=== PATIENT | female | born 1955 | race African-American/Black ===

== ENCOUNTER 2018-01-03 09:15 | Inpatient (IN) | payer SELFPAY ==
[2018-01-03] MEDS ORDERED: NORMAL SALINE 1000 ML 1,000 ML IV ONE (10:33)
[2018-01-03] MEDS ORDERED: ONDANSETRON HCL INJ/PF 4 MG/2 ML SDV IV ONE (10:33)
--- NOTE | 2018-01-03 10:34 | ER Document Report ---
ED Medical Screen (RME) - General Chief Complaint: Lower Abdominal Pain Stated Complaint: ABDOMEN PAIN Time Seen by Provider: 01/03/18 10:28 TRAVEL OUTSIDE OF THE [place] IN LAST 30 DAYS: No - HPI Notes: 01/03/18 10:34 Left lower quadrant pain with fever nausea vomiting/diarrhea ongoing for the last 2 days. - Related Data Allergies/Adverse Reactions: No Known Allergies Allergy (Verified 01/03/18 09:28) Past Medical History - Social History Chew tobacco use (# tins/day): No Frequency of alcohol use: None Drug Abuse: None Renal/ Medical History: Denies: Hx Peritoneal Dialysis Past Surgical History: Reports: Hx Section Review of Systems - Review of Systems Constitutional: See HPI Physical Exam - Respiratory Respiratory status: No respiratory distress Chest status: Nontender Breath sounds: Normal Chest palpation: Normal
[2018-01-03 11:09] LABS: HEMATOCRIT 37.7 % (36.0-47.0); HEMOGLOBIN 12.4 g/dL (12.0-15.5); MEAN CORPUSCULAR HEMOGLOBIN 27.5 pg (27.0-33.4); MEAN CORPUSCULAR HGB CONC 32.9 g/dL (32.0-36.0); MEAN CORPUSCULAR VOLUME 84 fl (80-97); PLATELET COUNT 195 10^3/uL (150-450); RED CELL DISTRIBUTION WIDTH 14.7 % (11.5-14.0); WHITE BLOOD COUNT 12.5 10^3/uL (4.0-10.5)
--- NOTE | 2018-01-03 11:13 | ER Document Report ---
ED GI/ - General TRAVEL OUTSIDE OF THE [place] IN LAST 30 DAYS: No <DIANA QUARLES - Last Filed: 01/03/18 11:13> - General Mode of Arrival: Medic Information source: Patient, Relative, Emergency Med Personnel <RACHID LUEVANO - Last Filed: 01/03/18 14:32> - General Chief Complaint: Lower Abdominal Pain Stated Complaint: ABDOMEN PAIN Time Seen by Provider: 01/03/18 10:28 Notes: This 62-year-old female patient comes emergency room by EMS for left-sided abdominal pain. She reports waking up at 3 AM with severe left-sided abdominal pain followed by nausea with vomiting of clear liquid. When EMS arrived they did find that her blood pressure was elevated and she had a slight fever. Patient reports he moved here from the [facility] sometime in the past 1-2 months, has not taken blood pressure medication at least since arriving here. The patient has never had pain like this in her abdomen before. (RACHID LUEVANO) - Related Data Allergies/Adverse Reactions: No Known Allergies Allergy (Verified 01/03/18 09:28) Past Medical History - Social History Smoking Status: Never Smoker Chew tobacco use (# tins/day): No Frequency of alcohol use: None Drug Abuse: None Patient has suicidal ideation: No Patient has homicidal ideation: No Renal/ Medical History: Denies: Hx Peritoneal Dialysis Past Surgical History: Reports: Hx Section <DIANA QUARLES - Last Filed: 01/03/18 11:13> - General Information source: Patient - Social History Cigarette use (# per day): No Smoking Education Provided: No Occupation: Unemployed Lives with: Family Family History: Reviewed & Not Pertinent - Past Medical History Cardiac Medical History: Reports: Hx Hypercholesterolemia, Hx Hypertension Pulmonary Medical History: Reports: None EENT Medical History: Reports: None Neurological Medical History: Reports: None Endocrine Medical History: Reports: None Renal/ Medical History: Reports: None GI Medical History: Reports: None Skin Medical History: Reports None Psychiatric Medical History: Reports: None Past Surgical History: Reports: Hx Section <RACHID LUEVANO - Last Filed: 01/03/18 14:32> Review of Systems - Review of Systems Constitutional: No symptoms reported EENT: No symptoms reported Cardiovascular: No symptoms reported Respiratory: No symptoms reported Gastrointestinal: See HPI Genitourinary: No symptoms reported Female Genitourinary: No symptoms reported, Post menopausal Musculoskeletal: No symptoms reported Skin: No symptoms reported Hematologic/Lymphatic: No symptoms reported Neurological/Psychological: No symptoms reported <RACHID LUEVANO - Last Filed: 01/03/18 14:32> Physical Exam - Vital signs Interpretation: Hypertensive, Febrile - General General appearance: Appears well, Alert In distress: None - HEENT Head: Normocephalic, Atraumatic Eyes: Normal Pupils: PERRL - Respiratory Respiratory status: No respiratory distress Breath sounds: Normal - Cardiovascular Rhythm: Regular Heart sounds: Normal auscultation Murmur: No - Abdominal Inspection: Morbidly Obese Bowel sounds: Hypoactive Tenderness: Tender - Very tender in the left mid abdomen to palpate. No guarding or rebound. - Back Back: Normal - Extremities General upper extremity: Normal inspection General lower extremity: Normal inspection. No: Edema - Neurological Neuro grossly intact: Yes - Psychological Associated symptoms: Normal affect - Skin Skin Temperature: Warm Skin Moisture: Moist Skin Color: Normal <RACHID LUEVANO - Last Filed: 01/03/18 14:32> Course - Laboratory Result Diagrams: 01/03/18 10:45 01/03/18 10:45 <DIANA QUARLES - Last Filed: 01/03/18 11:13> - Laboratory Result Diagrams: 01/03/18 10:45 01/03/18 10:45 - Consults Dr. Richter Time consulted: 14:15 Consulted provider: will come to ER <RACHID LUEVANO - Last Filed: 01/03/18 14:32> - Laboratory Laboratory results interpreted by me: 01/03/18 01/03/18 01/03/18 10:45 10:45 11:00 WBC 12.5 H RDW 14.7 H Seg Neuts % (Manual) 91 H Lymphocytes % (Manual) 4 L Monocytes % (Manual) 2 L Abs Neuts (Manual) 11.8 H Glucose 130 H Urine Protein 30 H Urine Ketones TRACE H Urine Blood MODERATE H Urine Urobilinogen 2.0 H Ur Leukocyte Esterase LARGE H Discharge <DIANA QUARLES - Last Filed: 01/03/18 11:13> - Discharge Admitting Provider: Hospitalist Unit Admitted: Medical Floor <RACHID LUEVANO - Last Filed: 01/03/18 14:32> - Discharge Clinical Impression: Complicated UTI (urinary tract infection) Abdominal pain Qualifiers: Abdominal location: left upper quadrant Qualified Code(s): R10.12 - Left upper quadrant pain Leukocytosis Qualifiers: Leukocytosis type: bandemia Qualified Code(s): D72.825 - Bandemia Condition: Stable Disposition: ADMITTED INPATIENT Scribe Attestation: 01/03/18 11:17 I personally performed the services described in the documentation, reviewed and edited the documentation which was dictated to the scribe in my presence, and it accurately records my words and actions. (RACHID LUEVANO)
[2018-01-03 11:25] LABS: ALANINE AMINOTRANSFERASE 19 U/L (9-52); ALBUMIN 3.9 g/dL (3.5-5.0); ALKALINE PHOSPHATASE 84 U/L (38-126); ANION GAP 12 (5-19); ASPARTATE AMINO TRANSFERASE 21 U/L (14-36); BILIRUBIN,DIRECT 0.2 mg/dL (0.0-0.4); BILIRUBIN,TOTAL 0.6 mg/dL (0.2-1.3); BLOOD UREA NITROGEN 18 mg/dL (7-20); CALCIUM 9.4 mg/dL (8.4-10.2); CARBON DIOXIDE 26 mmol/L (22-30); CHLORIDE 107 mmol/L (98-107); GLUCOSE 130 mg/dL (75-110); LIPASE 64.6 U/L (23-300); POTASSIUM 3.8 mmol/L (3.6-5.0); SODIUM 144.7 mmol/L (137-145); TOTAL PROTEIN 7.7 g/dL (6.3-8.2)
[2018-01-03 11:42] LABS: ABSOLUTE LYMPHOCYTES# (MANUAL) 0.5 10^3/uL (0.5-4.7); ABSOLUTE MONOCYTES # (MANUAL) 0.3 10^3/uL (0.1-1.4); ABSOLUTE NEUTROPHILS# (MANUAL) 11.8 10^3/uL (1.7-8.2); BAND NEUTROPHILS % (MANUAL) 3 % (3-5); BASOPHILS % (MANUAL) 0 % (0-2); EOSINOPHILS % (MANUAL) 0 % (0-6); LYMPHOCYTES % (MANUAL) 4 % (13-45); MONOCYTES % (MANUAL) 2 % (3-13); SEGMENTED NEUTROPHILS % (MAN) 91 % (42-78); TOTAL CELLS COUNTED 100; TOXIC VACUOLATION PRESENT
[2018-01-03 11:43] LABS: ANISOCYTOSIS SLIGHT; PLATELET COMMENT ADEQUATE
[2018-01-03 11:48] LABS: APPEARANCE,URINE TURBID; BILIRUBIN,URINE NEGATIVE (NEGATIVE); COLOR,URINE YELLOW; GLUCOSE, URINE NEGATIVE (NEGATIVE); KETONES,URINE TRACE mg/dL (NEGATIVE); LEUKOCYTE ESTERASE,URINE LARGE (NEGATIVE); NITRITE,URINE NEGATIVE (NEGATIVE); PROTEIN,URINE 30 mg/dL (NEGATIVE); URINE SPECIFIC GRAVITY 1.019
--- NOTE | 2018-01-03 12:32 | RADIOLOGY REPORT (SQ) ---
EXAM DESCRIPTION: CT ABD/PELVIS WITH IV ONLY COMPLETED DATE/TIME: 01/03/2018 12:11 pm REASON FOR STUDY: LLQ pain COMPARISON: None. TECHNIQUE: CT scan of the abdomen and pelvis performed using helical scanning technique with dynamic intravenous contrast injection. No oral contrast. Images reviewed with lung, soft tissue, and bone windows. Reconstructed coronal and sagittal MPR images reviewed. Delayed images for evaluation of the urinary system also acquired. All images stored on PACS. All CT scanners at this facility use dose modulation, iterative reconstruction, and/or weight based d osing when appropriate to reduce radiation dose to as low as reasonably achievable (ALARA). [facility]: Dose Right [facility]: CareDose [facility]: Dose Right [facility]: Teradose 4D [facility]: [employer] CONTRAST TYPE AND DOSE: contrast/concentration: Isovue 350.00 mg/ml; Total Contrast Delivered: 99.0 ml; Total Saline Delivered: 67.0 ml RENAL FUNCTION: GFR > 60. RADIATION DOSE: CT Rad equipment meets quality standard of care and radiation dose reduction techniq ues were employed. CTDIvol: 21.0 - 21.1 mGy. DLP: 2329 mGy-cm.. LIMITATIONS: None. FINDINGS: LOWER CHEST: No significant findings. No nodules or infiltrates. LIVER: Normal size. No masses. No dilated ducts. SPLEEN: Normal size. No focal lesions. PANCREAS: No masses. No significant calcifications. No adjacent inflammation or peripancreatic fluid collections. Pancreatic duct not dilated. GALLBLADDER: No identified stones by CT criteria. No inflammatory changes to suggest cholecystitis. ADRENAL GLANDS: No significant masses or asymmetry. RIGHT KIDNEY AND URETER: 1 cm cyst lower pole. No solid masses. No significant calcifications. N o hydronephrosis or hydroureter. LEFT KIDNEY AND URETER: No solid masses. 3 cm cyst. 2 mm renal calculus. No hydronephrosis or hy droureter. AORTA AND VESSELS: No aneurysm. RETROPERITONEUM: No retroperitoneal adenopathy, hemorrhage or masses. BOWEL AND PERITONEAL CAVITY: No masses or inflammatory changes. No free fluid or peritoneal masses. APPENDIX: Normal. PELVIS: No mass. No free fluid. Normal bladder. ABDOMINAL WALL: Umbilical hernia containing fat. BONES: No acute findings. OTHER: No other significant finding. IMPRESSION: No acute findings. Small nonobstructing left renal calculus. TECHNICAL DOCUMENTATION: JOB ID: [id number] Quality ID # [id number]: Final reports with documentation of one or more dose reduction techniques (e.g., Au tomated exposure control, adjustment of the mA and/or kV according to patient size, use of iterative reconstruction technique) 2010 [employer]- All Rights Reserved Reading location - IP/workstation name: [email or web address]
[2018-01-03] MEDS ORDERED: CEFTRIAXONE 2 GM/D5W RTU 2 GM/50 ML RTUPB IV ONE (14:13)
[2018-01-03] MEDS ORDERED: ACETAMINOPHEN 325 MG TABLET PO ONE (14:24)
--- NOTE | 2018-01-03 15:51 | PDOC H&P ---
History of Present Illness Admission Date/PCP: 01/03/18 15:10 History of Present Illness: TAMMIE CUENCA is a 62 year old black female patient who recently relocated from [place] to [facility] presented with chief complaint of left flank pain, fever, nausea and vomiting. Patient reports that she has been in apparently good state of health up until 3 AM this morning when she woke up with left flank pain which is colicky and nonradiating about 10 out of 10 on pain scale. She has associated nausea, vomiting, and fever. Her blood work shows mild leukocytosis and her urinalysis is compatible with UTI. Patient denies any dizziness, headache or blurry vision. No diarrhea or change in her bowel habits. Past Medical History Cardiac Medical History: Reports: Hyperlipidema, Hypertension Pulmonary Medical History: Reports: None EENT Medical History: Reports: None Neurological Medical History: Reports: None Endocrine Medical History: Reports: None Renal/ Medical History: Reports: None GI Medical History: Reports: None Skin Medical History: Reports: None Psychiatric Medical History: Reports: None Past Surgical History Past Surgical History: Reports: Section Social History Lives with: Family Smoking Status: Never Smoker Frequency of Alcohol Use: None Hx Recreational Drug Use: No Hx Prescription Drug Abuse: No - Advance Directive Resuscitation Status: Full Code Family History Family History: Reviewed & Not Pertinent, Hypertension Parental Family History Reviewed: Yes Children Family History Reviewed: Yes Sibling(s) Family History Reviewed.: Yes Medication/Allergy Allergies/Adverse Reactions: No Known Allergies Allergy (Verified 01/03/18 09:28) Review of Systems Constitutional: PRESENT: as per HPI Eyes: PRESENT: as per HPI Respiratory: ABSENT: cough, hemoptysis Gastrointestinal: ABSENT: abdominal pain, constipation, diarrhea, hematemesis, hematochezia, nausea, vomiting Genitourinary: PRESENT: other - Left CVA tenderness Neurological: PRESENT: as per HPI Physical Exam General appearance: PRESENT: no acute distress, well-developed Head exam: PRESENT: atraumatic, normocephalic Eye exam: PRESENT: conjunctiva pink, EOMI. ABSENT: scleral icterus Mouth exam: PRESENT: moist Neck exam: ABSENT: carotid bruit, JVD, lymphadenopathy, thyromegaly Respiratory exam: PRESENT: clear to auscultation sayda. ABSENT: rales, rhonchi, wheezes Cardiovascular exam: PRESENT: RRR. ABSENT: diastolic murmur, rubs, systolic murmur GI/Abdominal exam: PRESENT: normal bowel sounds, soft. ABSENT: distended, guarding, mass, organolmegaly, rebound, tenderness Rectal exam: PRESENT: deferred Extremities exam: PRESENT: full ROM. ABSENT: calf tenderness, clubbing, pedal edema Neurological exam: PRESENT: alert, awake, oriented to person, oriented to place , oriented to time, oriented to situation. ABSENT: motor sensory deficit Psychiatric exam: PRESENT: appropriate affect, normal mood. ABSENT: homicidal ideation, suicidal ideation Skin exam: PRESENT: dry, intact, warm. ABSENT: cyanosis, rash Results Impressions: Abdomen/Pelvis CT 01/03/18 10:33 IMPRESSION: No acute findings. Small nonobstructing left renal calculus. Assessment & Plan - Diagnosis (1) Complicated UTI (urinary tract infection) Is this a current diagnosis for this admission?: Yes Plan: Her CT scan of the abdomen revealed nonobstructing left renal calculi. Patient has been started on ceftriaxone. (2) Nausea and vomiting Is this a current diagnosis for this admission?: Yes Plan: Patient has been started on as needed Zofran. (3) Hypertension Is this a current diagnosis for this admission?: Yes Plan: Continue home medication (4) Hyperlipidemia Is this a current diagnosis for this admission?: Yes (5) Morbid obesity Is this a current diagnosis for this admission?: Yes Plan: Lifestyle modification advised. - Inpatient Certification Medical Necessity: Need for IV Antibiotics
[2018-01-03] MEDS: OXYCODONE-ACETAMINOPHEN 5-325 MG TABLET PO PRN ×2 (16:39→22:19)
[2018-01-03] MEDS: NORMAL SALINE 1000 ML 1,000 ML IV PRN ×2 (16:40→22:19)
[2018-01-04] MEDS: OXYCODONE-ACETAMINOPHEN 5-325 MG TABLET PO PRN ×2 (02:33→07:32)
[2018-01-04] MEDS: ONDANSETRON HCL INJ/PF 4 MG/2 ML SDV IV PRN ×3 (02:33→17:31)
[2018-01-04 05:23] LABS: HEMATOCRIT 31.2 % (36.0-47.0); HEMOGLOBIN 10.5 g/dL (12.0-15.5); MEAN CORPUSCULAR HGB CONC 33.7 g/dL (32.0-36.0); MEAN CORPUSCULAR VOLUME 83 fl (80-97); PLATELET COUNT 138 10^3/uL (150-450); RED BLOOD COUNT 3.76 10^6/uL (3.72-5.28); RED CELL DISTRIBUTION WIDTH 14.6 % (11.5-14.0); WHITE BLOOD COUNT 9.2 10^3/uL (4.0-10.5)
[2018-01-04 05:39] LABS: ANION GAP 10 (5-19); BLOOD UREA NITROGEN 14 mg/dL (7-20); CALCIUM 8.5 mg/dL (8.4-10.2); CARBON DIOXIDE 24 mmol/L (22-30); CHLORIDE 107 mmol/L (98-107); GLUCOSE 120 mg/dL (75-110); POTASSIUM 3.6 mmol/L (3.6-5.0); SODIUM 140.9 mmol/L (137-145)
[2018-01-04 07:14] LABS: ABSOLUTE LYMPHOCYTES# (MANUAL) 0.4 10^3/uL (0.5-4.7); ABSOLUTE MONOCYTES # (MANUAL) 0.1 10^3/uL (0.1-1.4); ABSOLUTE NEUTROPHILS# (MANUAL) 8.7 10^3/uL (1.7-8.2); BASOPHILS % (MANUAL) 0 % (0-2); EOSINOPHILS % (MANUAL) 0 % (0-6); LYMPHOCYTES % (MANUAL) 4 % (13-45); MONOCYTES % (MANUAL) 1 % (3-13); SEGMENTED NEUTROPHILS % (MAN) 95 % (42-78); TOTAL CELLS COUNTED 100
[2018-01-04 07:15] LABS: HYPOCHROMASIA SLIGHT; PLATELET COMMENT ADEQUATE; TOXIC GRANULATION SLIGHT
[2018-01-04] MEDS: LANSOPRAZOLE 30 MG TAB.RAP.DR PO SCH (07:32)
[2018-01-04] MEDS ORDERED: CEFTRIAXONE 2 GM/D5W RTU 2 GM/50 ML RTUPB IV SCH (10:00)
[2018-01-04] MEDS ORDERED: MORPHINE SULFATE 10 MG/ML INJ IV PRN (11:17)
[2018-01-04] MEDS: ENOXAPARIN SODIUM INJ 40 MG/0.4 ML DISP.SYRIN SUBCUT SCH (11:29)
[2018-01-04] MEDS: ACETAMINOPHEN 325 MG TABLET PO PRN (11:32)
[2018-01-04] MEDS: NORMAL SALINE 1000 ML 1,000 ML IV PRN (11:32)
[2018-01-04] MEDS: CEFTRIAXONE SODIUM 2,000 MG in NORMAL SALINE 100 ML IV SCH (11:33)
[2018-01-04] MEDS: HYDRALAZINE HCL INJ/PF 20 MG/1 ML SDV IV PRN (20:38)
--- NOTE | 2018-01-04 21:14 | PDOC PROGRESS REPORT ---
Subjective Progress Note for:: 01/04/18 Subjective:: 62-year-old black female presenting with left-sided flank pain, fever nausea and vomiting. Found to have a nonobstructing nephrolithiasis, and started on empiric ceftriaxone therapy. Her leukocytosis has been improving. On today's exam her left flank pain has improved. She complains of a severe headache, and complains of ongoing weakness and mild nausea. States that she slept poorly last night. We will continue to monitor her here in the hospital with a possible discharge home tomorrow. Reason For Visit: COMPLICATED UTI Physical Exam Vital Signs: Temp Pulse Resp BP Pulse Ox 98.3 F 59 L 16 138/74 H 96 01/04/18 07:59 01/04/18 07:59 01/04/18 07:59 01/04/18 07:59 01/04/18 07:59 Intake & Output 01/03/18 01/04/18 01/05/18 06:59 06:59 06:59 Intake Total 1706 100 Balance 1706 100 Weight 115.2 kg General appearance: PRESENT: no acute distress, cooperative, obese. ABSENT: mild distress Head exam: PRESENT: atraumatic, normocephalic Eye exam: PRESENT: EOMI. ABSENT: conjunctival injection Ear exam: PRESENT: normal external ear exam. ABSENT: bleeding Mouth exam: PRESENT: moist. ABSENT: dry mucosa Neck exam: PRESENT: full ROM. ABSENT: carotid bruit, JVD Respiratory exam: ABSENT: accessory muscle use, rales, rhonchi, wheezes Cardiovascular exam: PRESENT: RRR, +S1 Pulses: ABSENT: normal carotid pulses, normal dorsalis pedis pul Vascular exam: PRESENT: normal capillary refill. ABSENT: pallor GI/Abdominal exam: ABSENT: ascites, mass, organolmegaly Extremities exam: ABSENT: calf tenderness, joint swelling Musculoskeletal exam: PRESENT: full ROM, normal inspection Neurological exam: PRESENT: alert, oriented to person, oriented to place, oriented to time Psychiatric exam: ABSENT: agitated, anxious Focused psych exam: ABSENT: catatonic, paranoid Skin exam: ABSENT: dry, erythema, mottled Results Laboratory Results: 01/04/18 04:50 01/04/18 04:50 01/04/18 01/04/18 04:50 04:50 WBC 9.2 RBC 3.76 Hgb 10.5 L Hct 31.2 L MCV 83 MCH 28.0 MCHC 33.7 RDW 14.6 H Plt Count 138 L Seg Neutrophils % Not Reportable Lymphocytes % Not Reportable Monocytes % Not Reportable Eosinophils % Not Reportable Basophils % Not Reportable Absolute Neutrophils Not Reportable Absolute Lymphocytes Not Reportable Absolute Monocytes Not Reportable Absolute Eosinophils Not Reportable Absolute Basophils Not Reportable Sodium 140.9 Potassium 3.6 Chloride 107 Carbon Dioxide 24 Anion Gap 10 BUN 14 Creatinine 0.76 Est GFR ( Amer) > 60 Est GFR (Non-Af Amer) > 60 Glucose 120 H Calcium 8.5 Impressions: Abdomen/Pelvis CT 01/03/18 10:33 IMPRESSION: No acute findings. Small nonobstructing left renal calculus. Assessment & Plan - Diagnosis (1) Complicated UTI (urinary tract infection) Is this a current diagnosis for this admission?: Yes Plan: Will need follow-up with outpatient urology after this hospital stay. Continue ceftriaxone coverage at present. Will anticipate a prolonged coverage with Cefdinir at discharge. Clinically was too fatigued and weak to discharge home today, but this is a possibility for discharge tomorrow. (2) Nausea and vomiting Is this a current diagnosis for this admission?: Yes Plan: continue prn anti0-emetics (3) Morbid obesity Is this a current diagnosis for this admission?: Yes Plan: Encourage caloric reduction. (4) Hypertension Is this a current diagnosis for this admission?: Yes Plan: Blood pressure in acceptable range. IV hydralazine written with use parameters. (5) Leukocytosis Qualifiers: Leukocytosis type: bandemia Qualified Code(s): D72.825 - Bandemia Is this a current diagnosis for this admission?: Yes Plan: Improving on empiric antibiotics. Continue antibiotic coverage for problem #1. - Time Time Spent with patient: 15-24 minutes - Inpatient Certification Based on my medical assessment, after consideration of the patient's comorbidities, presenting symptoms, or acuity I expect that the services needed warrant INPATIENT care.: Yes I certify that my determination is in accordance with my understanding of Medicare's requirements for reasonable and necessary INPATIENT services [42 CFR 412.3e].: Yes Medical Necessity: Need Close Monitoring Due to Risk of Patient Decompensation
[2018-01-05] MEDS: HYDRALAZINE HCL INJ/PF 20 MG/1 ML SDV IV PRN ×2 (00:54→08:58)
[2018-01-05] MEDS: ACETAMINOPHEN 325 MG TABLET PO PRN ×2 (01:40→08:58)
[2018-01-05 05:19] LABS: HEMATOCRIT 31.7 % (36.0-47.0); HEMOGLOBIN 10.4 g/dL (12.0-15.5); MEAN CORPUSCULAR HEMOGLOBIN 27.7 pg (27.0-33.4); MEAN CORPUSCULAR HGB CONC 32.8 g/dL (32.0-36.0); MEAN CORPUSCULAR VOLUME 84 fl (80-97); PLATELET COUNT 120 10^3/uL (150-450); RED BLOOD COUNT 3.76 10^6/uL (3.72-5.28); RED CELL DISTRIBUTION WIDTH 14.5 % (11.5-14.0); WHITE BLOOD COUNT 4.4 10^3/uL (4.0-10.5)
[2018-01-05 05:39] LABS: ALBUMIN 2.8 g/dL (3.5-5.0); ANION GAP 8 (5-19); BLOOD UREA NITROGEN 8 mg/dL (7-20); CALCIUM 8.5 mg/dL (8.4-10.2); CARBON DIOXIDE 24 mmol/L (22-30); CHLORIDE 110 mmol/L (98-107); GLUCOSE 99 mg/dL (75-110); PHOSPHORUS 2.8 mg/dL (2.5-4.5); POTASSIUM 3.4 mmol/L (3.6-5.0); SODIUM 141.7 mmol/L (137-145)
[2018-01-05] MEDS: LANSOPRAZOLE 30 MG TAB.RAP.DR PO SCH (06:54)
[2018-01-05] MEDS ORDERED: AMLODIPINE BESYLATE 5 MG TABLET PO SCH (10:00)
[2018-01-05] MEDS: CEFTRIAXONE SODIUM 2,000 MG in NORMAL SALINE 100 ML IV SCH (10:33)
[2018-01-05] MEDS: ENOXAPARIN SODIUM INJ 40 MG/0.4 ML DISP.SYRIN SUBCUT SCH (10:34)
--- NOTE | 2018-01-05 14:28 | Physician Advisory Note ---
Physician Advisor ProgressNote .: Pursuant to the plan for [facility], I have reviewed the medical record for this patient. Physician Advisor Statement: Pt came in w/Lt flank pain/F/N/V/Lt CVAT, found to have leukocytosis & nephrolithiasis without obstruction. Do you believe she may have "Acute pyelonephritis" this adm? If so, please document this in all notes. Thanks! CK
[2018-01-05] MEDS: HYDRALAZINE HCL 50 MG TABLET PO SCH ×2 (14:37→22:34)
[2018-01-05] MEDS: ISOSORBIDE MONONITRATE 60 MG TAB.ER.24H PO SCH (14:37)
[2018-01-05] MEDS: LOSARTAN POTASSIUM 50 MG TABLET PO SCH (18:39)
--- NOTE | 2018-01-05 21:01 | PDOC PROGRESS REPORT ---
Subjective Progress Note for:: 01/05/18 Subjective:: 62-year-old black female presenting with left-sided flank pain, fever nausea and vomiting. Found to have a nonobstructing nephrolithiasis, and started on empiric ceftriaxone therapy. Her leukocytosis has been resolving. Close to discharging patient home today on oral antibiotics, but her HTN was uncontrolled. She was started on Hydralazine, Imdur and Losartan. Continue titrating BP meds, anticipate d/c soon. Reason For Visit: COMPLICATED UTI Physical Exam Vital Signs: Temp Pulse Resp BP Pulse Ox 98.1 F 66 12 175/68 H 99 01/05/18 13:35 01/05/18 13:35 01/05/18 13:35 01/05/18 16:00 01/05/18 13:35 Intake & Output 01/04/18 01/05/18 01/06/18 06:59 06:59 06:59 Intake Total 1706 1544 580 Balance 1706 1544 580 Weight 115.2 kg 119.4 kg General appearance: PRESENT: no acute distress. ABSENT: mild distress Head exam: PRESENT: atraumatic, normocephalic Eye exam: PRESENT: EOMI, PERRLA. ABSENT: nystagmus Ear exam: PRESENT: normal external ear exam. ABSENT: bleeding Mouth exam: PRESENT: moist. ABSENT: dry mucosa Neck exam: PRESENT: full ROM. ABSENT: carotid bruit, meningismus Respiratory exam: ABSENT: rales, rhonchi, wheezes Cardiovascular exam: PRESENT: RRR, +S1, +S2 Pulses: PRESENT: normal radial pulses, normal dorsalis pedis pul GI/Abdominal exam: PRESENT: soft. ABSENT: ascites, mass, rigid Extremities exam: ABSENT: calf tenderness, joint swelling Musculoskeletal exam: PRESENT: full ROM. ABSENT: ambulatory Neurological exam: PRESENT: alert, oriented to person, oriented to place, oriented to time, oriented to situation, CN II-XII grossly intact Psychiatric exam: ABSENT: agitated, anxious Focused psych exam: ABSENT: delusional, paranoid Skin exam: ABSENT: abrasion, mottled Results Laboratory Results: 01/05/18 04:43 01/05/18 04:43 01/05/18 01/05/18 04:43 04:43 WBC 4.4 RBC 3.76 Hgb 10.4 L Hct 31.7 L MCV 84 MCH 27.7 MCHC 32.8 RDW 14.5 H Plt Count 120 L Sodium 141.7 Potassium 3.4 L Chloride 110 H Carbon Dioxide 24 Anion Gap 8 BUN 8 Creatinine 0.69 Est GFR ( Amer) > 60 Est GFR (Non-Af Amer) > 60 Glucose 99 Calcium 8.5 Phosphorus 2.8 Albumin 2.8 L Impressions: Abdomen/Pelvis CT 01/03/18 10:33 IMPRESSION: No acute findings. Small nonobstructing left renal calculus. Assessment & Plan - Diagnosis (1) Complicated UTI (urinary tract infection) Is this a current diagnosis for this admission?: Yes Plan: Given symptoms, it is likely that she had acute pylonephritis on admission. Will need follow-up with outpatient urology after this hospital stay. Continue ceftriaxone coverage at present. Will anticipate a prolonged coverage with Cefdinir at discharge. d/c med reconciliation of antibiotic has been performed. (2) Nausea and vomiting Is this a current diagnosis for this admission?: Yes Plan: continue prn anti-emetics (3) Morbid obesity Is this a current diagnosis for this admission?: Yes Plan: encouraged caloric restriction (4) Hypertension Is this a current diagnosis for this admission?: Yes Plan: starting Losartan, Hydralazine and Imdur. will monitor and titrate medications for BP control. (5) Leukocytosis Qualifiers: Leukocytosis type: bandemia Qualified Code(s): D72.825 - Bandemia Is this a current diagnosis for this admission?: Yes Plan: resolved. - Time Time Spent with patient: 15-24 minutes - Inpatient Certification Based on my medical assessment, after consideration of the patient's comorbidities, presenting symptoms, or acuity I expect that the services needed warrant INPATIENT care.: Yes I certify that my determination is in accordance with my understanding of Medicare's requirements for reasonable and necessary INPATIENT services [42 CFR 412.3e].: Yes Medical Necessity: Need Close Monitoring Due to Risk of Patient Decompensation
[2018-01-06 05:10] LABS: HEMATOCRIT 30.1 % (36.0-47.0); MEAN CORPUSCULAR HEMOGLOBIN 27.8 pg (27.0-33.4); MEAN CORPUSCULAR HGB CONC 33.4 g/dL (32.0-36.0); MEAN CORPUSCULAR VOLUME 83 fl (80-97); PLATELET COUNT 148 10^3/uL (150-450); RED BLOOD COUNT 3.62 10^6/uL (3.72-5.28); RED CELL DISTRIBUTION WIDTH 14.4 % (11.5-14.0); WHITE BLOOD COUNT 4.3 10^3/uL (4.0-10.5)
[2018-01-06] MEDS: LANSOPRAZOLE 30 MG TAB.RAP.DR PO SCH (05:35)
[2018-01-06] MEDS: HYDRALAZINE HCL 50 MG TABLET PO SCH ×3 (05:35→22:54)
[2018-01-06 05:38] LABS: ALBUMIN 2.8 g/dL (3.5-5.0); ANION GAP 10 (5-19); BLOOD UREA NITROGEN 7 mg/dL (7-20); CALCIUM 8.5 mg/dL (8.4-10.2); CARBON DIOXIDE 24 mmol/L (22-30); CHLORIDE 108 mmol/L (98-107); GLUCOSE 96 mg/dL (75-110); PHOSPHORUS 3.3 mg/dL (2.5-4.5); POTASSIUM 3.6 mmol/L (3.6-5.0); SODIUM 141.7 mmol/L (137-145)
[2018-01-06] MEDS: LOSARTAN POTASSIUM 50 MG TABLET PO SCH (10:34)
[2018-01-06] MEDS: ENOXAPARIN SODIUM INJ 40 MG/0.4 ML DISP.SYRIN SUBCUT SCH (10:34)
[2018-01-06] MEDS: ISOSORBIDE MONONITRATE 60 MG TAB.ER.24H PO SCH (10:34)
[2018-01-06] MEDS: CEFTRIAXONE SODIUM 2,000 MG in NORMAL SALINE 100 ML IV SCH (10:45)
--- NOTE | 2018-01-06 17:35 | PDOC PROGRESS REPORT ---
Subjective Progress Note for:: 01/06/18 - seen on rounds this morning Subjective:: states she feels great and wants to go home today. discussed about her HTN and new medications that were started last night. Reason For Visit: COMPLICATED UTI Physical Exam Vital Signs: Temp Pulse Resp BP Pulse Ox 98.4 F 72 18 150/70 H 97 01/06/18 15:42 01/06/18 15:42 01/06/18 15:42 01/06/18 15:42 01/06/18 15:42 Intake & Output 01/05/18 01/06/18 01/07/18 06:59 06:59 06:59 Intake Total 1544 580 100 Balance 1544 580 100 Weight 263 lb 3.711 oz 263 lb 0.183 oz General appearance: PRESENT: no acute distress, morbidly obese Head exam: PRESENT: atraumatic, normocephalic Eye exam: PRESENT: EOMI, PERRLA. ABSENT: scleral icterus Ear exam: PRESENT: normal external ear exam Mouth exam: PRESENT: neck supple, tongue midline Neck exam: ABSENT: tracheal deviation Respiratory exam: PRESENT: clear to auscultation sayda, symmetrical Cardiovascular exam: PRESENT: +S1, +S2 Pulses: PRESENT: +2 pedal pulses bilateral GI/Abdominal exam: PRESENT: normal bowel sounds, soft. ABSENT: tenderness Extremities exam: ABSENT: joint swelling, pedal edema Neurological exam: PRESENT: alert, awake, oriented to person, oriented to place , oriented to time, oriented to situation, reflexes normal, CN II-XII grossly intact Skin exam: PRESENT: dry, warm Results Laboratory Results: 01/06/18 04:08 01/06/18 04:08 01/06/18 01/06/18 04:08 04:08 WBC 4.3 RBC 3.62 L Hgb 10.0 L Hct 30.1 L MCV 83 MCH 27.8 MCHC 33.4 RDW 14.4 H Plt Count 148 L Sodium 141.7 Potassium 3.6 Chloride 108 H Carbon Dioxide 24 Anion Gap 10 BUN 7 Creatinine 0.68 Est GFR ( Amer) > 60 Est GFR (Non-Af Amer) > 60 Glucose 96 Calcium 8.5 Phosphorus 3.3 Albumin 2.8 L Impressions: Abdomen/Pelvis CT 01/03/18 10:33 IMPRESSION: No acute findings. Small nonobstructing left renal calculus. Assessment & Plan - Diagnosis (1) Acute pyelonephritis Is this a current diagnosis for this admission?: Yes Plan: c/w rocephin as she's improving. Ucx with Proteus Mirabilis. can transition to PO antibiotics on discharge- i would think a total 10 day course of antibiotics should be adequate if she continues to improve. (2) Complicated UTI (urinary tract infection) Is this a current diagnosis for this admission?: Yes (3) Hypertension Is this a current diagnosis for this admission?: Yes Plan: last night her BP was high so she was started on imdur, hydralazine and losartan at the same time. she had really bad headache yesterday- i believe it is from the Imdur- i will stop this for now- it is not first time for HTN. she was on norvasc but ran out of it so hasn't been taking it since October when she moved from [place]. Will start her back on norvasc- will monitor her BP today and if she does well she can be discharge home on these meds- discussed about diet/lifestyle modifications for HTN (4) Morbid obesity Is this a current diagnosis for this admission?: Yes Plan: counseled and discussed about weight loss
[2018-01-06] MEDS: HYDRALAZINE HCL INJ/PF 20 MG/1 ML SDV IV PRN (20:20)
[2018-01-07] MEDS: NORMAL SALINE 1000 ML 1,000 ML IV PRN (03:42)
[2018-01-07] MEDS: HYDRALAZINE HCL 50 MG TABLET PO SCH ×2 (05:37→15:27)
[2018-01-07] MEDS: LANSOPRAZOLE 30 MG TAB.RAP.DR PO SCH (05:37)
[2018-01-07] MEDS: LOSARTAN POTASSIUM 50 MG TABLET PO SCH (09:49)
[2018-01-07] MEDS: CEFTRIAXONE SODIUM 2,000 MG in NORMAL SALINE 100 ML IV SCH (09:49)
[2018-01-07] MEDS: ENOXAPARIN SODIUM INJ 40 MG/0.4 ML DISP.SYRIN SUBCUT SCH (09:51)
[2018-01-07] MEDS ORDERED: AMLODIPINE BESYLATE 10 MG TABLET PO SCH ×2 (10:00→14:00)
[2018-01-07 12:16] VITALS: BP 156/83
--- NOTE | 2018-01-07 15:07 | PDOC DISCHARGE SUMMARY ---
General - Admit/Disc Date/PCP Admission Date/Primary Care Provider: 01/03/18 15:10 Discharge Date: 01/07/18 - Seen on rounds this afternoon - Discharge Diagnosis (1) Acute pyelonephritis Is this a current diagnosis for this admission?: Yes (2) Complicated UTI (urinary tract infection) Is this a current diagnosis for this admission?: Yes (3) Hypertension Is this a current diagnosis for this admission?: Yes (4) Morbid obesity Is this a current diagnosis for this admission?: Yes - Additional Information Resuscitation Status: Full Code Discharge Diet: As Tolerated Discharge Activity: Activity As Tolerated Prescriptions: Acetaminophen [Tylenol 325 mg Tablet] 650 mg PO Q4HP PRN 10 Days #30 tablet PRN Reason: For Pain Scale 3-5 Amlodipine Besylate [Norvasc 10 mg Tablet] 10 mg PO DAILY #30 tablet Cefdinir [Omnicef 300 mg Capsule] 1 cap PO BID 3 Days #6 capsule Hydralazine HCl [Apresoline 50 mg Tablet] 50 mg PO Q8 #90 tablet Losartan Potassium [Cozaar 50 mg Tablet] 50 mg PO DAILY #30 tablet Oxybutynin Chloride [Ditropan 5 mg Tablet] 5 mg PO TID PRN 10 Days #15 tablet PRN Reason: Bladder Spasms Home Medications: Acetaminophen [Tylenol 325 mg Tablet] 650 mg PO Q4HP PRN 10 Days #30 tablet Oxybutynin Chloride [Ditropan 5 mg Tablet] 5 mg PO TID PRN 10 Days #15 tablet Amlodipine Besylate [Norvasc 10 mg Tablet] 10 mg PO DAILY tablet 01/07/18 Amlodipine Besylate [Norvasc 10 mg Tablet] 10 mg PO DAILY #30 tablet 01/07/18 Cefdinir [Omnicef 300 mg Capsule] 1 cap PO BID 3 Days #6 capsule 01/07/18 Hydralazine HCl [Apresoline 50 mg Tablet] 50 mg PO Q8 #90 tablet 01/07/18 Losartan Potassium [Cozaar 50 mg Tablet] 50 mg PO DAILY #30 tablet 01/07/18 History of Present Illness History of Present Illness: TAMMIE CUENCA is a 62 year old female admitted for UTI and suspected bilateral. See H&P for full assessment and plan Hospital Course Hospital Course: After admission to the hospital she was started on IV antibiotics and IV fluids. Her symptoms improved and resolved over the next few days. Unfortunately her blood pressure was elevated upon admission. She was taking Norvasc at home but had not taken in the last few months since she is new to the area. She is started on new medications here and advised on follow-up. She was started on losartan 50 mg daily, hydralazine 50 mg every 8 hours and Norvasc 10 mg daily. She is given strict instruction on how to check her blood pressures 3 times a day prior to medications. She was told to not take her medications if her blood pressure was less than 100/60. She was also told to talk to her PCP about his blood pressure medication. He was also told to discontinue blood pressure medications if he had any adverse reactions were discussed with her during her stay. Physical Exam Vital Signs: Temp Pulse Resp BP Pulse Ox 98.8 F 75 19 156/83 H 99 01/07/18 11:38 01/07/18 11:38 01/07/18 11:38 01/07/18 11:38 01/07/18 11:38 Intake & Output 01/06/18 01/07/18 01/08/18 06:59 06:59 06:59 Intake Total 580 700 660 Balance 580 700 660 Weight 263 lb 0.183 oz 260 lb 5.855 oz General appearance: PRESENT: no acute distress, morbidly obese, well-developed, well-nourished Head exam: PRESENT: atraumatic, normocephalic Eye exam: PRESENT: EOMI, PERRLA - A with sorry. ABSENT: scleral icterus Ear exam: PRESENT: normal external ear exam Mouth exam: PRESENT: neck supple, tongue midline Neck exam: ABSENT: tracheal deviation - At that Respiratory exam: PRESENT: clear to auscultation sayda, symmetrical Cardiovascular exam: PRESENT: +S1, +S2 Pulses: PRESENT: +2 pedal pulses bilateral GI/Abdominal exam: PRESENT: normal bowel sounds, soft, other - No CVA tenderness. ABSENT: tenderness Extremities exam: ABSENT: joint swelling, pedal edema Neurological exam: PRESENT: alert, awake, oriented to person, oriented to place , oriented to time, oriented to situation, CN II-XII grossly intact Skin exam: PRESENT: dry, warm Results Laboratory Results: 01/06/18 04:08 01/06/18 04:08 Impressions: Abdomen/Pelvis CT 01/03/18 10:33 IMPRESSION: No acute findings. Small nonobstructing left renal calculus. Qualifiers - * PATIENT BEING DISCHARGED WITH ANY OF THE FOLLOWING DIAGNOSIS: No VTE patient discharged on overlapping Therapy?: No
== END 2018-01-07 18:04 | disposition home or self-care (01) | DRG 690 ==
LOC: ER 09:15 → EH 15:10 → 4N 21:19
PROVIDERS: ADMIT Internal Medicine; ATTEND Internal Medicine
DX: N10 Acute pyelonephritis (principal); Z68.41 Body mass index [BMI] 40.0-44.9, adult; I10 Essential (primary) hypertension; E66.01 Morbid (severe) obesity due to excess calories; E78.5 Hyperlipidemia, unspecified; D72.825 Bandemia; N39.0 Urinary tract infection, site not specified; B96.4 Proteus (mirabilis) (morganii) as the cause of diseases classified elsewhere; N20.0 Calculus of kidney
CPT/HCPCS: 36415; 74177; 80048; 80053; 80069; 81001; 83690; 85025; 85027; 87040; 87086; 87088; 87186; 96361; 96365; 96375; 99285; J0360; J0696; J1650; J2405; J7030

== ENCOUNTER → 2019-06-14 | Outpatient (CLI) | payer MEDICARE, MEDICAID ==
--- NOTE | 2019-06-14 15:30 | XCELERA REPORT ---
[address] [address] Lower Extremity Arterial Evaluation Name: TAMMIE CUENCA Age: 63 yrs Gender: Female : 1955 Patient Status: Outpatient Patient Location: Study Date: 06/14/2019 07:59 AM Procedure: A color flow and duplex scan of the lower extremity arteries was performed bilaterally with velocity and waveform anaylsis. Reason For Study: OSTEOARTHRITIS Ordering Physician: LAUREL CHAPPELL Performed By: Lizezth Hodgson Measurements and Calculations Right Left FURNACE COMBUSTION ANALYST PSV 119.4 97.2 cm/sec Prox PFA PSV -68.5 -59.7 cm/sec Prox SFA PSV -130.6 -93.8 cm/sec Mid SFA PSV -90.4 -87.4 cm/sec Dist SFA PSV -82.0 -85.9 cm/sec Prox Pop A PSV 79.8 92.3 cm/sec Prox WILLIE PSV 61.8 94.3 cm/sec Dist WILLIE PSV 14.7 cm/sec Prox THREAD WINDER PSV 78.1 31.8 cm/sec Dist THREAD WINDER PSV 84.5 42.4 cm/sec Prox Kvng A 66.0 34.8 cm/sec PSV Emir Pedis PSV 18.0 -66.4 cm/sec Right Side Arterial Evaluation Normal velocity and triphasic waveforms noted from the Common Femoral artery to the Popliteal. Biphasic with normal velocity in the Anterior and Posterior Tibial arteries. Retrograde flow in the Dorsalis Pedis artery. Ankle Brachial index not done. Left Side Arterial Evaluation Normal velocity and triphasic waveforms noted from the Common Femoral artery to the Popliteal. Biphasic with normal velocity in the Anterior and Posterior Tibial arteries. Retrograde flow in the Dorsalis Pedis artery. Ankle Brachial index not done. Interpretation Summary Mild hemodynamically significant lesions in the bilateral lower extremities, on duplex imaging, at rest. Duplex findings of arterial abnormality in the infrageniculate vessels and Dorsalis Pedis. These findings are unlikely to be of much clinical consequence. : LAUREL CHAPPELL > Dax Negron
== END ==
LOC: SP 07:17
PROVIDERS: ATTEND Orthopaedic Surgery Sports Medicine
DX: M17.0 Bilateral primary osteoarthritis of knee (principal)
CPT/HCPCS: 93925

== ENCOUNTER 2019-08-06 09:20 | Day surgery (SDC) | payer MEDICARE, MEDICAID ==
[~2019-08-06 09:20] MED LIST: PROPOFOL INJ 200 MG/20 ML VIAL IV ONE
[2019-08-06 10:53] VITALS: BP 133/87
--- NOTE | 2019-08-06 12:24 | Operative Report ---
Operative Report DATE OF SURGERY: 08/06/19 Operative Report: The risk, benefits and alternatives of the procedure including the risk of bleeding, perforation requiring surgery have been explained to the patient in detail and informed consent has been obtained. Patient was taken back to the endoscopy suite and placed in a left, lateral decubital position. Timeout was called. Propofol medication is administered. Rectal examination is done which did not reveal any masses, tears or fissures. An Olympus videoscope was introduced into the patient's rectum. Scope was then carefully advanced all the way to the cecum. Cecum was identified by the usual anatomical landmarks of the ileocecal valve as well as the appendiceal office. Photodocumentation is obtained. Scope was then sequentially pulled back via the various segments of the colon including the ascending colon, hepatic flexure, transverse colon, splenic flexure, descending colon and finally into the rectosigmoid portions of the colon. Retroflexion maneuver is performed. PREOPERATIVE DIAGNOSIS: Colorectal cancer screening POSTOPERATIVE DIAGNOSIS: Right side colon Inflammation status post biopsy. Diverticulosis without any evidence of diverticulitis. Internal hemorrhoids OPERATION: Colonoscopy with biopsy SURGEON: JACKY OVALLE ANESTHESIA: LMAC TISSUE REMOVED OR ALTERED: As noted above. COMPLICATIONS: None. ESTIMATED BLOOD LOSS: None. INTRAOPERATIVE FINDINGS: As noted above. PROCEDURE: Patient tolerated the procedure well. No immediate postprocedure complications are noted. Patient is discharged in good condition. Discharge date 08/06/2019. Discharge diet: Regular. Discharge activity: Regular. 2 to 3-week follow-up to discuss findings. Patient instructed to call the office or proceed to the emergency room should there be any further problems or questions. Wait on the pathology. If negative pathology then consider 10-year surveillance colonoscopy without a family history of colorectal cancer.
== END 2019-08-06 10:55 | disposition home or self-care (01) ==
LOC: END 09:20
PROVIDERS: ATTEND Internal Medicine Gastroenterology
DX: Z12.11 Encounter for screening for malignant neoplasm of colon (principal); K52.9 Noninfective gastroenteritis and colitis, unspecified; K64.8 Other hemorrhoids; K57.30 Diverticulosis of large intestine without perforation or abscess without bleeding; Z79.899 Other long term (current) drug therapy; I10 Essential (primary) hypertension; E66.9 Obesity, unspecified; Z68.41 Body mass index [BMI] 40.0-44.9, adult
CPT/HCPCS: 45380; 88305 ×2; 00812; J2704; 812

== ENCOUNTER 2020-01-13 12:10 | Emergency (ER) | payer MEDICARE, MEDICAID ==
--- NOTE | 2020-01-13 13:26 | RADIOLOGY REPORT (SQ) ---
EXAM DESCRIPTION: CHEST SINGLE VIEW IMAGES COMPLETED DATE/TIME: 01/13/2020 12:47 pm REASON FOR STUDY: sob COMPARISON: None. NUMBER OF VIEWS: One view. TECHNIQUE: Single frontal radiographic view of the chest acquired. LIMITATIONS: None. FINDINGS: LUNGS AND PLEURA: No opacities, masses or pneumothorax. No pleural effusion. MEDIASTINUM AND HILAR STRUCTURES: No masses. Contour normal. HEART AND VASCULAR STRUCTURES: Heart normal in size. Normal vasculature. BONES: No acute findings. Moderate degenerative changes of the bilateral glenohumeral joints. HARDWARE: None in the chest. OTHER: No other significant finding. IMPRESSION: No acute pulmonary process. TECHNICAL DOCUMENTATION: JOB ID: [id number] 2010 [employer]- All Rights Reserved Reading location - IP/workstation name: [email or web address]
--- NOTE | 2020-01-13 15:03 | ER Document Report ---
Entered by KATI KIM SCRIBE 01/13/20 1447 Acting as scribe for:NELSY RIVERA MD ED General - General Chief Complaint: Sinus Congestion Stated Complaint: SHORTNESS OF BREATH/COUGH Time Seen by Provider: 01/13/20 12:16 Information source: Patient Notes: This 64 year old female patient presents to the emergency department today with complaints of nasal congestion. Patient reports nasal congestion and post nasal drip for the past x2 weeks. Patient states the post nasal drip keeps her awake at night and causes her to cough. Patient denies any covid exposure, fever, chills, sore throat, headache, or N/V/D. TRAVEL OUTSIDE OF THE [place] IN LAST 30 DAYS: No - Related Data Allergies/Adverse Reactions: No Known Allergies Allergy (Verified 01/13/20 13:00) Home Medications: amlodipine, atorvastatin, lasix, potasium, coreg, Past Medical History - General Information source: Patient - Social History Smoking Status: Never Smoker Cigarette use (# per day): No Chew tobacco use (# tins/day): No Frequency of alcohol use: None Drug Abuse: None Family History: Reviewed & Not Pertinent, Hypertension - Past Medical History Cardiac Medical History: Reports: Hx Hypercholesterolemia, Hx Hypertension Past Surgical History: Reports: Hx Section - Immunizations Hx Diphtheria, Pertussis, Tetanus Vaccination: No Review of Systems - Review of Systems Constitutional: See HPI. denies: Chills, Fever EENT: See HPI, Nose congestion, Other - post nasal drip. denies: Throat pain Cardiovascular: No symptoms reported Respiratory: See HPI, Cough Gastrointestinal: See HPI. denies: Diarrhea, Nausea, Vomiting Genitourinary: No symptoms reported Female Genitourinary: No symptoms reported Musculoskeletal: No symptoms reported Skin: No symptoms reported Hematologic/Lymphatic: No symptoms reported Neurological/Psychological: See HPI. denies: Headaches -: Yes All other systems reviewed and negative Physical Exam - Vital signs Vitals: Temp Pulse Resp BP Pulse Ox 98.6 F 100 22 H 138/77 H 99 01/13/20 13:11 01/13/20 13:11 01/13/20 13:11 01/13/20 13:11 01/13/20 13:11 - General General appearance: Appears well, Alert - HEENT Head: Normocephalic, Atraumatic Eyes: Normal Pupils: PERRL Ears: Normal External canal: Normal Tympanic membrane: Normal. No: Bulging Notes: No tenderness with palpation to frontal and maxillary sinus. Edema of turbinates bilaterally. No drainage. No erythema or edema of the pharynx. - Respiratory Respiratory status: No respiratory distress Chest status: Nontender Breath sounds: Normal Chest palpation: Normal - Cardiovascular Rhythm: Regular Heart sounds: Normal auscultation, S1 appreciated, S2 appreciated Murmur: No - Abdominal Inspection: Normal Distension: No distension Bowel sounds: Normal Tenderness: Nontender - Extremities General upper extremity: Normal inspection. No: Edema General lower extremity: Normal inspection. No: Edema - Neurological Neuro grossly intact: Yes Cognition: Normal Orientation: AAOx4 Speech: Normal - Psychological Associated symptoms: Normal affect, Normal mood - Skin Skin Temperature: Warm Skin Moisture: Dry Skin Color: Normal Course - Vital Signs Vital signs: Temp Pulse Resp BP Pulse Ox 98.6 F 100 22 H 138/77 H 99 01/13/20 13:11 01/13/20 13:11 01/13/20 13:11 01/13/20 13:11 01/13/20 13:11 Discharge - Discharge Clinical Impression: Nasal congestion with rhinorrhea Condition: Stable Disposition: HOME, SELF-CARE Additional Instructions: You have rhinitis with nasal drainage that is worse at night when you lie down. Also during the day you have noted it as well. I have placed you on a nasal spray called Flonase for the you to use 2 sprays each nostril once at night and during the day you are taking Zyrtec tablet 10 mg those prescriptions are available to you on discharge. Continue your same other medications as you are doing. Prescriptions: Fluticasone Propionate [Flonase Nasal [place] 50 Mcg/[place] 16 gm] 2 sprays NASL QHS #1 inhaler Cetirizine HCl [Zyrtec 10 mg Tablet] 10 mg PO DAILY #30 tablet I personally performed the services described in the documentation, reviewed and edited the documentation which was dictated to the scribe in my presence, and it accurately records my words and actions.
[2020-01-13 15:43] VITALS: BP 130/74
== END 2020-01-13 15:30 | disposition home or self-care (01) ==
LOC: ER 12:10
DX: R09.81 Nasal congestion (principal); J34.89 Other specified disorders of nose and nasal sinuses; R09.82 Postnasal drip; R05 Cough; I10 Essential (primary) hypertension; E78.00 Pure hypercholesterolemia, unspecified; Z79.899 Other long term (current) drug therapy
CPT/HCPCS: 71045; 99285

== ENCOUNTER 2020-01-23 17:40 | Inpatient (IN) | payer MEDICARE, MEDICAID ==
[2020-01-23] MEDS ORDERED: NORMAL SALINE 1000 ML 1,000 ML IV ONE (19:32)
[2020-01-23] MEDS ORDERED: ONDANSETRON HCL INJ/PF 4 MG/2 ML SDV IV ONE (19:32)
--- NOTE | 2020-01-23 19:42 | ER Document Report ---
ED Medical Screen (RME) - General Chief Complaint: Shortness Of Breath Stated Complaint: SHORTNESS OF BREATH/NAUSEA/VOMITING Time Seen by Provider: 01/23/20 19:27 Mode of Arrival: Wheelchair Information source: Patient Notes: 64-year-old female patient presented to the emergency department chief complaint of nausea, vomiting, chills, shortness of breath. Patient reports symptoms ongoing since Tuesday which was 4 days ago. Patient denies any known exposure 20 COVID-19 positive persons. She does report that she was in her emergency department about a week ago with similar symptoms, she states she was not COVID- 19 tested. Patient is dry heaving during interview in triage. Skin warm and dry, speaking in full and complete sentences in between dry heaving. I have greeted and performed a rapid initial assessment of this patient. A comprehensive ED assessment and evaluation of the patient, analysis of test results and completion of the medical decision making process will be conducted by additional ED providers. I have specifically instructed the patient or family members with the patient to immediately return to any nursing staff should anything change in the patient's condition or with their chief complaint. TRAVEL OUTSIDE OF THE [place] IN LAST 30 DAYS: No - Related Data Allergies/Adverse Reactions: No Known Allergies Allergy (Verified 01/23/20 19:26) Past Medical History - Social History Frequency of alcohol use: None Drug Abuse: None - Past Medical History Cardiac Medical History: Reports: Hx Hypercholesterolemia, Hx Hypertension Denies: Hx Coronary Artery Disease, Hx Heart Attack Pulmonary Medical History: Denies: Hx Asthma, Hx Bronchitis, Hx COPD - SOB WHEN WAKES UP AT TIMES, Hx Pneumonia Neurological Medical History: Denies: Hx Cerebrovascular Accident, Hx Seizures Renal/ Medical History: Denies: Hx Peritoneal Dialysis Musculoskeltal Medical History: Denies Hx Arthritis Past Surgical History: Reports: Hx Section - Immunizations Hx Diphtheria, Pertussis, Tetanus Vaccination: No
--- NOTE | 2020-01-23 20:47 | RADIOLOGY REPORT (SQ) ---
XR CHEST 1 VIEW HISTORY: Shortness of breath. COMPARISON: 01/13/2020 FINDINGS: The heart size is within normal limits. There is no pulmonary vascular congestion. No consolidation, pleural effusion, or pneumothorax is seen. No acute bony findings are seen. IMPRESSION: No evidence of acute cardiopulmonary disease.
[2020-01-23] MEDS ORDERED: ONDANSETRON HCL INJ/PF 4 MG/2 ML SDV ONE (22:06)
[2020-01-23 22:45] LABS: ABSOLUTE BASOPHILS # (AUTO) 0.1 10^3/uL (0.0-0.2); ABSOLUTE EOSINOPHILS # (AUTO) 0.1 10^3/uL (0.0-0.6); ABSOLUTE LYMPHOCYTES (AUTO) 2.3 10^3/uL (0.5-4.7); ABSOLUTE MONOCYTES (AUTO) 0.8 10^3/uL (0.1-1.4); ABSOLUTE NEUT (AUTO) 4.5 10^3/uL (1.7-8.2); BASOPHILS % (AUTO) 0.9 % (0-2); EOSINOPHILS % (AUTO) 1.4 % (0-6); HEMATOCRIT 36.6 % (36.0-47.0); LYMPHOCYTES % (AUTO) 29.5 % (13-45); MEAN CORPUSCULAR HEMOGLOBIN 25.5 pg (27.0-33.4); MEAN CORPUSCULAR HGB CONC 32.8 g/dL (32.0-36.0); MEAN CORPUSCULAR VOLUME 78 fl (80-97); MONOCYTES % (AUTO) 9.9 % (3-13); PLATELET COUNT 266 10^3/uL (150-450); RED BLOOD COUNT 4.71 10^6/uL (3.72-5.28); RED CELL DISTRIBUTION WIDTH 15.5 % (11.5-14.0); SEGMENTED NEUTROPHILS % (AUTO) 58.3 % (42-78); TOTAL CELLS COUNTED % (AUTO) 100 %; WHITE BLOOD COUNT 7.6 10^3/uL (4.0-10.5)
[2020-01-23 22:54] LABS: ALBUMIN 4.4 g/dL (3.5-5.0); ALKALINE PHOSPHATASE 78 U/L (38-126); ANION GAP 18 (5-19); ASPARTATE AMINO TRANSFERASE 41 U/L (14-36); BILIRUBIN,DIRECT 0.5 mg/dL (0.0-0.4); BILIRUBIN,TOTAL 0.8 mg/dL (0.2-1.3); BLOOD UREA NITROGEN 24 mg/dL (7-20); CALCIUM 11.6 mg/dL (8.4-10.2); CARBON DIOXIDE 25 mmol/L (22-30); CHLORIDE 97 mmol/L (98-107); GLUCOSE 100 mg/dL (75-110); POTASSIUM 3.2 mmol/L (3.6-5.0); TOTAL PROTEIN 8.4 g/dL (6.3-8.2)
[2020-01-24] MEDS ORDERED: ONDANSETRON HCL INJ/PF 4 MG/2 ML SDV IV ONE (00:05)
[2020-01-24] MEDS ORDERED: DILTIAZEM HCL/D5W 125 MG/125 ML RTUINJ IV PRN (00:06)
[2020-01-24] MEDS ORDERED: ENOXAPARIN SODIUM INJ 100 MG/1 ML DISP.SYRIN SUBCUT ONE (00:11)
[2020-01-24] MEDS ORDERED: MAGNESIUM SULFATE/D5W 1 GM/100 ML RTUPB IV ONE (00:37)
[2020-01-24] MEDS ORDERED: POTASSIUM CHLORIDE 10 MEQ TABLET.ER PO ONE (00:37)
--- NOTE | 2020-01-24 00:45 | ER Document Report ---
ED General - General Chief Complaint: Shortness Of Breath Stated Complaint: SHORTNESS OF BREATH/NAUSEA/VOMITING Time Seen by Provider: 01/23/20 19:27 Mode of Arrival: Wheelchair TRAVEL OUTSIDE OF THE [place] IN LAST 30 DAYS: No - HPI Notes: Patient is a 64-year-old female who presents to the emergency department for evaluation. She states that over the last several weeks has been short of breath, particularly with exertion. Over the last several days it seems to have gotten worse. She started with nausea and vomiting, that lasted for several days, and then resumed today. Emesis has been nonbloody, nonbilious. She has had some diarrhea as well. She has had no fevers, states she gets "chilled" intermittently. She was seen recently for rhinorrhea, but states that has i mproved. She denies any chest pain. She denies any sensation of palpitations. She has had no recent changes in her medications. - Related Data Allergies/Adverse Reactions: No Known Allergies Allergy (Verified 01/23/20 19:26) Past Medical History - General Information source: Patient - Social History Smoking Status: Never Smoker Frequency of alcohol use: None Drug Abuse: None Family History: Reviewed & Not Pertinent, Hypertension, Other - asthma Patient has homicidal ideation: No - Past Medical History Cardiac Medical History: Reports: Hx Hypercholesterolemia, Hx Hypertension Denies: Hx Coronary Artery Disease, Hx Heart Attack Pulmonary Medical History: Denies: Hx Asthma, Hx Bronchitis, Hx COPD - SOB WHEN WAKES UP AT TIMES, Hx Pneumonia Neurological Medical History: Denies: Hx Cerebrovascular Accident, Hx Seizures Renal/ Medical History: Denies: Hx Peritoneal Dialysis Musculoskeletal Medical History: Denies Hx Arthritis Past Surgical History: Reports: Hx Section, Hx Orthopedic Surgery - R TKA - Immunizations Hx Diphtheria, Pertussis, Tetanus Vaccination: No Review of Systems - Review of Systems Constitutional: See HPI EENT: See HPI Cardiovascular: No symptoms reported Respiratory: See HPI Gastrointestinal: See HPI Genitourinary: No symptoms reported Musculoskeletal: No symptoms reported Skin: No symptoms reported Neurological/Psychological: No symptoms reported Physical Exam - Vital signs Vitals: Temp Pulse Resp BP Pulse Ox 98.6 F 127 H 22 H 139/104 H 100 01/23/20 19:37 01/23/20 19:37 01/23/20 19:37 01/23/20 19:37 01/23/20 19:37 - Notes Notes: Vital signs reviewed, please refer to chart. Head is normocephalic, atraumatic. Pupils equal round, reactive to light. Neck is supple without meningismus. Hea rt is irregularly irregular. Lungs are clear to auscultation bilaterally. Abdomen is soft, nontender, normoactive bowel sounds throughout. Extremities without cyanosis, clubbing. Well-healing surgical scar in the right knee consistent with recent TKA. Posterior calves are nontender. Peripheral pulses are equal. Skin is warm and dry. Patient is awake, alert, neurological exam is nonfocal. Course - Re-evaluation Re-evalutation: 01/24/20 00:43 Patient presents to the emergency department for evaluation. She was initially seen through triage. Because of her vomiting, diarrhea, chills, there was concern for COVID. She had a septic work-up ordered. Upon auscultation, it was clear that the patient was in atrial fibrillation, this is indeed new. Ordered Cardizem. She did have some borderline blood pressures, so bolus was withheld. She was started on the drip. Current heart rate is 111. She was found to be hypokalemic, magnesium was ordered. Magnesium is low as well. IV magnesium and oral potassium is ordered. Patient is currently stable, we will continue to monitor. 01/24/20 01:48 Patient's nausea has improved. She tolerated IV magnesium, oral potassium. On a Cardizem drip her heart rate is well controlled, blood pressures have remained stable. Her troponin is very mildly and indeterminately elevated, I do not have a high suspicion for ACS as an etiology here. I will contact medicine for admis kojo. 01/24/20 02:03 Dr. Brandt will admit the patient. - Vital Signs Vital signs: Temp Pulse Resp BP Pulse Ox 98.2 F 127 H 24 H 130/52 H 99 01/23/20 22:31 01/23/20 19:37 01/24/20 01:55 01/24/20 01:55 01/24/20 01:55 - Laboratory Result Diagrams: 01/23/20 22:23 01/23/20 22:23 Laboratory results interpreted by me: 01/23/20 01/23/20 01/23/20 22:23 22:23 22:23 MCV 78 L MCH 25.5 L RDW 15.5 H Potassium 3.2 L Chloride 97 L BUN 24 H Calcium 11.6 H Magnesium 1.5 L Direct Bilirubin 0.5 H AST 41 H Total Protein 8.4 H Urine Protein Urine Ketones Urine Blood Ur Leukocyte Esterase 01/24/20 00:43 MCV MCH RDW Potassium Chloride BUN Calcium Magnesium Direct Bilirubin AST Total Protein Urine Protein 100 H Urine Ketones 20 H Urine Blood MODERATE H Ur Leukocyte Esterase LARGE H - Diagnostic Test Radiology reviewed: Image reviewed, Reports reviewed Radiology results interpreted by me: 01/24/20 00:44 Chest X-Ray 01/23/20 19:36 IMPRESSION: No evidence of acute cardiopulmonary disease. - EKG Interpretation by Me Additional EKG results interpreted by me: 01/24/20 00:44 Atrial fibrillation with a rate of 125 bpm. Left axis deviation. Nonspecific ST changes, but no acute changes concerning for ischemia or infarction. No old study available for comparison. Discharge - Discharge Clinical Impression: Rapid atrial fibrillation, Hypokalemia, Hypomagnesemia, Person under investigation for COVID-19, Nausea vomiting and diarrhea Condition: Stable Disposition: ADMITTED INPATIENT Admitting Provider: Amor (Hospitalist) Unit Admitted: [facility]
[2020-01-24 01:04] LABS: APPEARANCE,URINE CLOUDY; BILIRUBIN,URINE NEGATIVE (NEGATIVE); COLOR,URINE YELLOW; GLUCOSE, URINE NEGATIVE (NEGATIVE); KETONES,URINE 20 mg/dL (NEGATIVE); LEUKOCYTE ESTERASE,URINE LARGE (NEGATIVE); NITRITE,URINE NEGATIVE (NEGATIVE); PROTEIN,URINE 100 mg/dL (NEGATIVE); URINE SPECIFIC GRAVITY 1.014; UROBILINOGEN,URINE NEGATIVE mg/dL (<2.0)
[2020-01-24 01:08] LABS: ADD MANUAL MICROSCOPIC YES
[2020-01-24 01:09] LABS: BACTERIA,URINE 1+ /HPF; RBC,URINE 0-1 /HPF; WHITE BLOOD CELL CASTS, URINE 0-1 /LPF
[2020-01-24] MEDS ORDERED: ONDANSETRON HCL INJ/PF 4 MG/2 ML SDV IV PRN (02:52)
[2020-01-24] MEDS ORDERED: MAG HYDROX/AL HYDROX/SIMETH SUSP 30 ML UDCUP PO PRN (02:52)
[2020-01-24] MEDS ORDERED: MAGNESIUM HYDROXIDE SUSP 30 ML UDCUP PO PRN (02:52)
[2020-01-24] MEDS ORDERED: GUAIFENESIN SYRP 200 MG/10 ML UDC PO PRN (03:05)
[2020-01-24] MEDS ORDERED: MORPHINE SULFATE 10 MG/ML INJ IV PRN ×4 (03:05→03:08)
[2020-01-24] MEDS ORDERED: LORAZEPAM INJ 2 MG/1 ML VIAL IV PRN (03:05)
[2020-01-24] MEDS ORDERED: MELATONIN 5 MG TABLET PO PRN (03:05)
[2020-01-24] MEDS ORDERED: ACETAMINOPHEN 325 MG TABLET PO PRN (03:05)
[2020-01-24] MEDS: DILTIAZEM HCL/D5W 125 MG/125 ML RTUINJ IV PRN ×2 (03:10→09:22)
--- NOTE | 2020-01-24 06:41 | PDOC H&P ---
History of Present Illness Admission Date/PCP: 01/24/2020 02:27 TASHIA Burdick Patient complains of: Dyspnea on exertion History of Present Illness: BENITO CUENCA is a 64 year old female who presented to the emergency room with a 1 month history of dyspnea. She admits progressively worsening dyspnea over the course of the last month becoming severe today. Her dyspnea is worsened by exertion and for the last 5 days has been accompanied by intermittent episodes of nausea with vomiting and several episodes of diarrhea. Her dyspnea has been associated with rhinorrhea and intermittent chills without fever. She denies other associated or accompanying signs and symptoms. She d enies prior similar episodes. She has not identified any additional aggravating or ameliorating factors for her dyspnea. In the emergency room she was found to have new onset atrial fibrillation with a rapid ventricular response and a minimally elevated troponin. She was subsequently admitted to the [facility] for further evaluation and treatment. Past Medical History Cardiac Medical History: Reports: Hyperlipidema, Hypertension Denies: Atrial Fibrillation, Coronary Artery Disease, DVT, Myocardial Infarction, Pulmonary Embolism Pulmonary Medical History: Denies: Asthma, Bronchitis, Chronic Obstructive Pulmonary Disease (COPD), Pneumonia EENT Medical History: Denies: Cataracts, Ears - Hearing aids Neurological Medical History: Denies: Hemorrhagic CVA, Ischemic CVA, Seizures Endocrine Medical History: Reports: Obesity Denies: Diabetes Mellitus Type 1, Diabetes Mellitus Type 2, Hyperthyroidism, Hypothyroidism Malignancy Medical History: Reports: None GI Medical History: Denies: Cirrhosis, Crohn's Disease, Gastroesophageal Reflux Disease, Hepatitis, Peptic Ulcer Disease, Ulcerative Colitis Musculoskeltal Medical History: Denies: Arthritis, Fibromyalgia Skin Medical History: Denies: Eczema, Psoriasis Psychiatric Medical History: Denies: Alcohol Dependency, Substance Abuse, Tobacco Dependency Traumatic Medical History: Reports: None Hematology: Denies: Anemia, Bleeding Tendencies Infectious Medical History: Reports: None Past Surgical History Past Surgical History: Reports: Section, Orthopedic Surgery - R TKA Social History Information Source: Patient Lives with: Family Smoking Status: Never Smoker Electronic Cigarette use?: No Frequency of Alcohol Use: None Hx Recreational Drug Use: No Drugs: None Hx Prescription Drug Abuse: No - Advance Directive Resuscitation Status: Full Code Surrogate healthcare decision maker:: Divya Cuenca Family History Family History: Hypertension, Other - asthma Parental Family History Reviewed: Yes Children Family History Reviewed: No Sibling(s) Family History Reviewed.: Yes Medication/Allergy Home Medications: Amlodipine Besylate [Norvasc 10 mg Tablet] 10 mg PO DAILY #30 tablet 01/07/18 Atorvastatin Calcium [Lipitor 40 mg Tablet] 40 mg PO QHS 08/03/19 Hydrochlorothiazide 12.5 mg PO DAILY 08/03/19 Losartan Potassium [Cozaar] 25 mg PO DAILY 08/03/19 Meloxicam [Qmiiz Odt] 7.5 mg PO DAILY 08/03/19 Cetirizine HCl [Zyrtec 10 mg Tablet] 10 mg PO DAILY #30 tablet 01/13/20 Fluticasone Propionate [Flonase Nasal [place] 50 Mcg/[place] 16 gm] 2 sprays NASL QHS #1 inhaler 01/13/20 Allergies/Adverse Reactions: No Known Allergies Allergy (Verified 01/23/20 19:26) Review of Systems Constitutional: PRESENT: as per HPI, chills. ABSENT: fever(s) Eyes: ABSENT: visual disturbances, other - Eye pain Ears: ABSENT: hearing changes, other - Ear pain Nose, Mouth, and Throat: ABSENT: headache(s), sore throat Cardiovascular: PRESENT: as per HPI, dyspnea on exertion. ABSENT: chest pain, palpitations Respiratory: PRESENT: as per HPI, dyspnea. ABSENT: cough Gastrointestinal: PRESENT: as per HPI, diarrhea, nausea, vomiting. ABSENT: abdominal pain, constipation Genitourinary: ABSENT: dysuria, hematuria Musculoskeletal: ABSENT: back pain, joint swelling, muscle weakness Integumentary: ABSENT: pruritus, rash Neurological: ABSENT: confusion, convulsions, focal weakness, memory loss, syncope Psychiatric: ABSENT: anxiety, depression Endocrine: ABSENT: cold intolerance, heat intolerance Hematologic/Lymphatic: ABSENT: easy bleeding, easy bruising Allergic/Immunologic: PRESENT: seasonal rhinorrhea Physical Exam Vital Signs: Temp Pulse Resp BP Pulse Ox 98.2 F 127 H 24 H 130/52 H 99 01/23/20 22:31 01/23/20 19:37 01/24/20 01:55 01/24/20 01:55 01/24/20 01:55 Intake & Output 01/22/20 01/23/20 01/24/20 23:59 23:59 23:59 Intake Total 1000 109 Balance 1000 109 Weight 114.305 kg General appearance: PRESENT: no acute distress, cooperative, obese Head exam: PRESENT: atraumatic, normocephalic Eye exam: PRESENT: conjunctiva pink. ABSENT: conjunctival injection, scleral icterus Ear exam: PRESENT: normal external ear exam. ABSENT: bleeding, drainage Mouth exam: PRESENT: dry mucosa, neck supple Neck exam: ABSENT: thyromegaly, tracheal deviation Respiratory exam: PRESENT: clear to auscultation sayda, symmetrical, unlabored Cardiovascular exam: PRESENT: irregular rhythm - Irregularly irregular rate and rhythm, tachycardia. ABSENT: clicks, gallop, rubs Pulses: PRESENT: normal radial pulses, normal dorsalis pedis pul Vascular exam: PRESENT: normal capillary refill. ABSENT: pallor GI/Abdominal exam: PRESENT: normal bowel sounds, soft. ABSENT: tenderness Rectal exam: PRESENT: deferred Extremities exam: ABSENT: joint swelling, pedal edema Musculoskeletal exam: ABSENT: deformity, dislocation Neurological exam: PRESENT: alert, oriented to person, oriented to place, oriented to time, oriented to situation, CN II-XII grossly intact. ABSENT: motor sensory deficit Psychiatric exam: PRESENT: appropriate affect, normal mood Skin exam: PRESENT: dry, intact, warm. ABSENT: jaundice, rash, urticaria Results Laboratory Results: 01/23/20 22:23 01/23/20 22:23 01/23/20 01/23/20 01/23/20 22:23 22:23 22:23 WBC 7.6 RBC 4.71 Hgb 12.0 Hct 36.6 MCV 78 L MCH 25.5 L MCHC 32.8 RDW 15.5 H Plt Count 266 Seg Neutrophils % 58.3 Sodium 140.3 Potassium 3.2 L Chloride 97 L Carbon Dioxide 25 Anion Gap 18 BUN 24 H Creatinine 0.88 Est GFR ( Amer) > 60 Glucose 100 Calcium 11.6 H Magnesium 1.5 L Total Bilirubin 0.8 AST 41 H Alkaline Phosphatase 78 Total Protein 8.4 H Albumin 4.4 Lipase 93.2 Urine Color Urine Appearance Urine pH Ur Specific [place] Urine Protein Urine Glucose (UA) Urine Ketones Urine Blood Urine Nitrite Ur Leukocyte Esterase Ur Squamous Epith Cells 01/24/20 00:43 WBC RBC Hgb Hct MCV MCH MCHC RDW Plt Count Seg Neutrophils % Sodium Potassium Chloride Carbon Dioxide Anion Gap BUN Creatinine Est GFR ( Amer) Glucose Calcium Magnesium Total Bilirubin AST Alkaline Phosphatase Total Protein Albumin Lipase Urine Color YELLOW Urine Appearance CLOUDY Urine pH 6.0 Ur Specific [place] 1.014 Urine Protein 100 H Urine Glucose (UA) NEGATIVE Urine Ketones 20 H Urine Blood MODERATE H Urine Nitrite NEGATIVE Ur Leukocyte Esterase LARGE H Ur Squamous Epith Cells RARE 01/23/20 22:23 Troponin I 0.037 Impressions: Chest X-Ray 01/23/20 19:36 IMPRESSION: No evidence of acute cardiopulmonary disease. Assessment and Plan - Diagnosis (1) Atrial fibrillation with rapid ventricular response Is this a current diagnosis for this admission?: Yes (2) Nausea vomiting and diarrhea Is this a current diagnosis for this admission?: Yes (3) Hypokalemia Is this a current diagnosis for this admission?: Yes (4) Hypomagnesemia Is this a current diagnosis for this admission?: Yes (5) Hypertension Qualifiers: Hypertension type: essential hypertension Qualified Code(s): I10 - Essential (primary) hypertension Is this a current diagnosis for this admission?: Yes (6) Hyperlipidemia Qualifiers: Hyperlipidemia type: unspecified Qualified Code(s): E78.5 - Hyperlipidemia, unspecified Is this a current diagnosis for this admission?: Yes (7) Person under investigation for COVID-19 Is this a current diagnosis for this admission?: Yes (8) Obesity Qualifiers: Obesity type: unspecified obesity type Obesity classification: adult class 2 (BMI 35 - 39.9) Is this a current diagnosis for this admission?: Yes - Plan Summary Summary: Patient will be admitted to [facility] where she will receive routine supportive and symptomatic cares. A cardiology consultation with Dr. Salazar will be obtained. Patient will be treated with IV diltiazem to control her ventricular response rate. Serial cardiac enzymes will be obtained. She will receive Lovenox 1 mg/kg every 12 hours as initial antiembolic therapy. Patient will receive morphine sulfate 2 to 4 mg IV every 2 hours as needed for pain. She will receive Ativan 1 mg IV every 4 hours as needed for anxiety or restlessness. She will be continued on her usual home medications, as appropriate, once her medication list has been verified and reconciled. CBCs, metabolic profiles and additional laboratory and/or radiographic evaluations will be obtained as needed. Registered dietitian consultation will be obtained. Case management consultation will be obtained. Patient will be maintained on a cardiac diet. - Time Time Spent with patient: 15-24 minutes Medications reviewed and adjusted accordingly: Yes Anticipated Discharge Disposition: Home, Self Care Anticipated Discharge Timeframe: within 72 hours - Inpatient Certification Based on my medical assessment, after consideration of the patient's comorbidities, presenting symptoms, or acuity I expect that the services needed warrant INPATIENT care.: Yes I certify that my determination is in accordance with my understanding of Medicare's requirements for reasonable and necessary INPATIENT services [42 CFR 412.3e].: Yes Medical Necessity: Significant Comorbidiites Make Outpatient Treatment Too Risky, Need Close Monitoring Due to Risk of Patient Decompensation, Need For Continuous Telemetry Monitoring, Risk of Complication if Not Cared For in Hospital, Risk of Diagnosis Which Will Require Inpatient Eval/Care/Monitoring
[2020-01-24 07:20] LABS: CREATINE KINASE MB 1.48 ng/mL (<4.55); TROPONIN I 0.045 ng/mL
--- NOTE | 2020-01-24 07:47 | EKG REPORT ---
SEVERITY:- ABNORMAL ECG - ATRIAL FIBRILLATION, V-RATE 81-152 WITH RVR BORDERLINE LEFT AXIS DEVIATION BORDERLINE T ABNORMALITIES, INFERIOR LEADS : Confirmed by: Darrius Bennett MD 24-Jan-2020 07:47:12
[2020-01-24] MEDS: POTASSIUM CHLORIDE 10 MEQ TABLET.ER PO SCH ×3 (08:31→18:08)
--- NOTE | 2020-01-24 08:56 | PDOC CONSULTATION ---
Consultation Consult Date: 01/24/20 Attending physician:: YOSELYN HARRIS Provider Consulted: MICKEY RYDER Consult reason:: A-fib, detectable troponin. History of Present Illness Admission Date/PCP: 01/24/20 02:32 History of Present Illness: BENITO CUENCA is a 64 year old female with history of hypertension, type 2 diabetes, hyperlipidemia, lifelong non-smoker, without known drug allergies and no family history of premature coronary artery disease who is consulted to our service for evaluation of new onset of atrial fibrillation. On initial presentation the patient was found to be in rapid atrial fibrillation, hypokalemic and hypomagnesemic therefore she was begun on a diltiazem drip and her electrolytes were replaced. She converted spontaneously to normal sinus rhythm. The admitting hospitalist's note states that she had been having dyspnea for approximately 1 month however during my interview she denied shortness of breath, [place], lower extremity edema, chest pain, palpitations, diaphoresis, syncope and presyncope. She was adamant that she did not have chest pain or shortness of breath but that her main complaint is a bad smell that has been constantly present since her knee surgery on 12/12/2019 that makes her stomach "squeezy" and provokes nausea and vomiting. Physical exam on 01/24/2020: GENERAL: Looks older than stated age, obese, appears uncomfortable. Oriented x3 with normal mood. Not in acute distress. Well groomed and well developed. HEENT: Normocephalic, atraumatic. Pupils equal. Sclerae anicteric. Oropharynx moist. NECK: No JVD. No carotid bruits. LUNGS: Clear to auscultation bilaterally. Normal respiratory effort without the use of accessory muscles or intercostal retractions. CARDIOVASCULAR: Regular rate and rhythm, normal S1 and S2 without murmurs, rubs, or gallops. PMI not displaced. ABDOMEN: Difficult to evaluate for organomegaly due to her obesity. No overt tenderness to palpation. No abdominal aorta bruit noted. EXTREMITIES: No edema, no cyanosis, no clubbing. +2 pulses femoral and pedal pulses bilaterally. SKIN: No lesions or rashes. MUSCULOSKELETAL: No chest tenderness to palpation. NEUROLOGIC: Nonfocal. No gross sensory or motor deficits bilateral upper or lower extremities. Past Medical History Cardiac Medical History: Reports: Hyperlipidema, Hypertension Denies: Atrial Fibrillation, Coronary Artery Disease, DVT, Myocardial Infarction, Pulmonary Embolism Pulmonary Medical History: Denies: Asthma, Bronchitis, Chronic Obstructive Pulmonary Disease (COPD), Pneumonia EENT Medical History: Denies: Cataracts, Ears - Hearing aids Neurological Medical History: Denies: Hemorrhagic CVA, Ischemic CVA, Seizures Endocrine Medical History: Reports: Obesity Denies: Diabetes Mellitus Type 1, Diabetes Mellitus Type 2, Hyperthyroidism, Hypothyroidism Malignancy Medical History: Reports: None GI Medical History: Denies: Cirrhosis, Crohn's Disease, Gastroesophageal Reflux Disease, H epatitis, Peptic Ulcer Disease, Ulcerative Colitis Musculoskeltal Medical History: Denies: Arthritis, Fibromyalgia Skin Medical History: Denies: Eczema, Psoriasis Psychiatric Medical History: Denies: Alcohol Dependency, Substance Abuse, Tobacco Dependency Traumatic Medical History: Reports: None Hematology: Denies: Anemia, Bleeding Tendencies Infectious Medical History: Reports: None Past Surgical History Past Surgical History: Reports: Section, Orthopedic Surgery - R TKA Social History Lives with: Family Smoking Status: Never Smoker Electronic Cigarette use?: No Frequency of Alcohol Use: None Hx Recreational Drug Use: No Drugs: None Hx Prescription Drug Abuse: No - Advance Directive Resuscitation Status: Full Code Family History Family History: Hypertension, Other - asthma Parental Family History Reviewed: Yes Children Family History Reviewed: Yes Sibling(s) Family History Reviewed.: Yes Medication/Allergy Home Medications: Amlodipine Besylate [Norvasc 10 mg Tablet] 10 mg PO DAILY #30 tablet 01/07/18 Atorvastatin Calcium [Lipitor 40 mg Tablet] 40 mg PO QHS 08/03/19 Hydrochlorothiazide 12.5 mg PO DAILY 08/03/19 Losartan Potassium [Cozaar] 25 mg PO DAILY 08/03/19 Meloxicam [Qmiiz Odt] 7.5 mg PO DAILY 08/03/19 Cetirizine HCl [Zyrtec 10 mg Tablet] 10 mg PO DAILY #30 tablet 01/13/20 Fluticasone Propionate [Flonase Nasal [place] 50 Mcg/[place] 16 gm] 2 sprays NASL QHS #1 inhaler 01/13/20 Allergies/Adverse Reactions: No Known Allergies Allergy (Verified 01/23/20 19:26) Physical Exam Vital Signs: Temp Pulse Resp BP Pulse Ox 98.1 F 127 H 22 H 123/56 L 98 01/24/20 02:32 01/23/20 19:37 01/24/20 07:30 01/24/20 07:30 01/24/20 07:30 Intake & Output 01/23/20 01/24/20 01/25/20 06:59 06:59 06:59 Intake Total 1136 Output Total 200 Balance 936 Weight 114.305 kg Results Laboratory Results: 01/23/20 22:23 01/23/20 22:23 01/23/20 01/23/20 01/23/20 22:23 22:23 22:23 WBC 7.6 RBC 4.71 Hgb 12.0 Hct 36.6 MCV 78 L MCH 25.5 L MCHC 32.8 RDW 15.5 H Plt Count 266 Seg Neutrophils % 58.3 Sodium 140.3 Potassium 3.2 L Chloride 97 L Carbon Dioxide 25 Anion Gap 18 BUN 24 H Creatinine 0.88 Est GFR ( Amer) > 60 Glucose 100 Calcium 11.6 H Magnesium 1.5 L Total Bilirubin 0.8 AST 41 H Alkaline Phosphatase 78 Total Protein 8.4 H Albumin 4.4 Lipase 93.2 TSH Urine Color Urine Appearance Urine pH Ur Specific [place] Urine Protein Urine Glucose (UA) Urine Ketones Urine Blood Urine Nitrite Ur Leukocyte Esterase Ur Squamous Epith Cells 01/23/20 01/24/20 22:23 00:43 WBC RBC Hgb Hct MCV MCH MCHC RDW Plt Count Seg Neutrophils % Sodium Potassium Chloride Carbon Dioxide Anion Gap BUN Creatinine Est GFR ( Amer) Glucose Calcium Magnesium Total Bilirubin AST Alkaline Phosphatase Total Protein Albumin Lipase TSH < 0.01 L Urine Color YELLOW Urine Appearance CLOUDY Urine pH 6.0 Ur Specific [place] 1.014 Urine Protein 100 H Urine Glucose (UA) NEGATIVE Urine Ketones 20 H Urine Blood MODERATE H Urine Nitrite NEGATIVE Ur Leukocyte Esterase LARGE H Ur Squamous Epith Cells RARE 01/23/20 01/24/20 01/24/20 22:23 06:25 06:25 Creatine Kinase 45 CK-MB (CK-2) 1.48 Troponin I 0.037 0.045 Impressions: Chest X-Ray 01/23/20 19:36 IMPRESSION: No evidence of acute cardiopulmonary disease. 01/23/20 22:23 01/23/20 22:23 MCV 78 fl (80-97) L 01/23/20 22:23 MCH 25.5 pg (27.0-33.4) L 01/23/20 22:23 MCHC 32.8 g/dL (32.0-36.0) 01/23/20 22:23 RDW 15.5 % (11.5-14.0) H 01/23/20 22:23 Seg Neutrophils % 58.3 % (42-78) 01/23/20 22:23 Chloride 97 mmol/L (98-107) L 01/23/20 22:23 Carbon Dioxide 25 mmol/L (22-30) 01/23/20 22:23 Anion Gap 18 (5-19) 01/23/20 22:23 Est GFR ( Amer) > 60 (>60) 01/23/20 22:23 Glucose 100 mg/dL (75-110) 01/23/20 22:23 Calcium 11.6 mg/dL (8.4-10.2) H 01/23/20 22:23 Magnesium 1.5 mg/dL (1.6-2.3) L 01/23/20 22:23 Total Bilirubin 0.8 mg/dL (0.2-1.3) 01/23/20 22:23 AST 41 U/L (14-36) H 01/23/20 22:23 Alkaline Phosphatase 78 U/L (38-126) 01/23/20 22:23 Total Protein 8.4 g/dL (6.3-8.2) H 01/23/20 22:23 Albumin 4.4 g/dL (3.5-5.0) 01/23/20 22:23 Lipase 93.2 U/L (23-300) 01/23/20 22:23 TSH < 0.01 uIU/mL (0.47-4.68) L 01/23/20 22:23 Urine Color YELLOW 01/24/20 00:43 Urine Appearance CLOUDY 01/24/20 00:43 Urine pH 6.0 (5.0-9.0) 01/24/20 00:43 Ur Specific [place] 1.014 01/24/20 00:43 Urine Protein 100 mg/dL (NEGATIVE) H 01/24/20 00:43 Urine Glucose (UA) NEGATIVE mg/dL (NEGATIVE) 01/24/20 00:43 Urine Ketones 20 mg/dL (NEGATIVE) H 01/24/20 00:43 Urine Blood MODERATE (NEGATIVE) H 01/24/20 00:43 Urine Nitrite NEGATIVE (NEGATIVE) 01/24/20 00:43 Ur Leukocyte Esterase LARGE (NEGATIVE) H 01/24/20 00:43 Ur Squamous Epith Cells RARE /HPF 01/24/20 00:43 01/23/20 01/24/20 01/24/20 22:23 06:25 06:25 Creatine Kinase 45 CK-MB (CK-2) 1.48 Troponin I 0.037 0.045 Current Medication List Generic Name Dose Route Start Last Admin Trade Name Freq PRN Reason Stop Dose Admin Acetaminophen 650 mg 01/24/20 03:05 Tylenol 325 Mg Tablet PO 02/23/20 03:04 Q4HP PRN For headache, pain or fever Al Hydrox/Mg Hydrox/Simethicone 30 ml 01/24/20 02:52 Maalox Plus Susp 30 Udcup PO 02/23/20 02:51 Q6HP PRN HEARTBURN Docusate Sodium 100 mg 01/24/20 10:00 Colace 100 Mg Capsule PO 02/23/20 09:59 BID ASIM Enoxaparin Sodium 115 mg 01/24/20 10:00 Lovenox Inj 120 Mg/0.8 Ml Disp.Syrin SUBCUT 02/23/20 09:59 Q12 ASIM Famotidine 20 mg 01/24/20 10:00 Pepcid 20 Mg Tablet PO 02/23/20 09:59 Q12 ASIM Guaifenesin 200 mg 01/24/20 03:05 Robitussin Syrup 200 Mg/10 Ml Ud Cup PO 02/23/20 03:04 Q4HP PRN COUGH Diltiazem HCl 125 mg in 125 mls @ 0 mls/hr 01/24/20 03:02 01/24/20 03:10 Cardizem Rtu Inj 125 Mg-D5w 125 Ml Premix IV 02/23/20 03:01 15 mls/hr CONTINUOUS PRN 15 mls/hr THIS MED IS NOT "PRN" Administration Protocol Titrate Lorazepam 1 mg 01/24/20 03:05 Ativan Inj 2 Mg/1 Ml Vial IV 01/31/20 03:04 Q4HP PRN ANXIETY/AGITATION Magnesium Hydroxide 30 ml 01/24/20 02:52 Milk Of Magnesia 30 Ml Udcup PO 02/23/20 02:51 HSP PRN FOR CONSTIPATION Melatonin 5 mg 01/24/20 03:05 Melatonin 5 Mg Tablet PO 02/23/20 03:04 HSP PRN SLEEP OR INSOMNIA Morphine Sulfate 2 mg 01/24/20 03:08 Morphine 10 Mg/Ml Inj IV 01/31/20 03:07 Q2HP PRN PAIN SCALE OF 2 Morphine Sulfate 3 mg 01/24/20 03:08 Morphine 10 Mg/Ml Inj IV 01/31/20 03:07 Q2HP PRN FOR PAIN SCALE 3-4 Morphine Sulfate 4 mg 01/24/20 03:08 Morphine 10 Mg/Ml Inj IV 01/31/20 03:07 Q2HP PRN PAIN SCALE OF 5 Ondansetron HCl 4 mg 01/24/20 02:52 Zofran Inj/Pf 4 Mg/2 Ml Sdv IV 02/23/20 02:51 Q4HP PRN FOR NAUSEA/VOMITING Potassium Chloride 20 meq 01/24/20 08:00 Klor-Con 10 Meq Tablet Er PO 02/23/20 07:59 MEALS ASIM Sodium Chloride 2.5 ml 01/24/20 06:00 01/24/20 05:35 Saline Flush 2.5 Ml Monoject Prefil Syrin IV 02/23/20 05:59 Not Given Q8 ASIM Discontinued Medications Generic Name Dose Route Start Last Admin Trade Name Freq PRN Reason Stop Dose Admin Enoxaparin Sodium 100 mg 01/24/20 00:11 01/24/20 00:18 Lovenox Inj 100 Mg/1 Ml Disp.Syrin SUBCUT 01/24/20 00:12 100 mg ONCE ONE Administration Sodium Chloride 1,000 mls @ 0 mls/hr 01/23/20 19:32 01/23/20 23:50 Nacl 0.9% 1000 Ml Iv Soln IV 01/23/20 19:33 Infused BOLUS ONE Infusion Wide Open Diltiazem HCl 125 mg in 125 mls @ 0 mls/hr 01/24/20 00:06 01/24/20 03:10 Cardizem Rtu Inj 125 Mg-D5w 125 Ml Premix IV 02/23/20 00:05 Infused CONTINUOUS PRN Titration THIS MED IS NOT "PRN" Protocol Titrate Magnesium Sulfate/Dextrose 1 gm in 100 mls @ 100 mls/hr 01/24/20 00:37 01/24/20 02:08 Magnesium Sulfate Rtu-D5w 1 Gm/100 Ml Premix IV 01/24/20 01:36 Infused NOW ONE Infusion Ondansetron HCl 4 mg 01/23/20 19:32 01/23/20 22:30 Zofran Inj/Pf 4 Mg/2 Ml Sdv IV 01/23/20 19:33 4 mg NOW ONE Administration Ondansetron HCl Confirm 01/23/20 22:06 01/23/20 22:32 Zofran Inj/Pf 4 Mg/2 Ml Sdv Administered 01/23/20 22:07 Not Given Dose 4 mg .ROUTE .STK-MED ONE Ondansetron HCl 4 mg 01/24/20 00:05 01/24/20 00:16 Zofran Inj/Pf 4 Mg/2 Ml Sdv IV 01/24/20 00:06 4 mg NOW ONE Administration Potassium Chloride 40 meq 01/24/20 00:37 01/24/20 01:01 Klor-Con 10 Meq Tablet Er PO 01/24/20 00:38 40 meq NOW ONE Administration Assessment & Plan - Diagnosis (1) Atrial fibrillation with rapid ventricular response Is this a current diagnosis for this admission?: Yes Plan: The patient presented to the emergency room complaining of dyspnea for approximately 1 month however she denied those symptoms to me and mainly complained of nausea and vomiting triggered by a strange smell in her nose. This is her first episode of atrial fibrillation that she knows of and converted spontaneously to normal sinus rhythm after diltiazem was begun. Her EKG demonstrated a rapid A. fib with nonspecific ST-T wave changes but no real ischemic changes. The etiology of her A. fib is unclear at this time and the differential diagnosis is wide open. Her electrolytes were replaced in the emergency room. Her chads 2 vascular score is 4 therefore she needs to be anticoagulated. Recommendations: -Echocardiogram to assess for structural heart disease. -Discontinue Lovenox. -Start Eliquis 5 mg p.o. twice daily. -Continue to track electrolytes and replace as needed. -Cardiac telemetry. -Plan for Lexiscan nuclear stress test when the patient is improved from her abdominal discomfort. -We will continue to follow with you. (2) Troponin I above reference range Is this a current diagnosis for this admission?: Yes Plan: The patient has detectable troponin but they are in the indeterminate range. She does have cardiac risk factors for coronary artery disease to include sedentary lifestyle, obesity, hypertension, diabetes and hyperlipidemia however she denied classical ischemic and heart failure to me. Her initial EKG only demonstrated nonspecific ST-T wave changes, her physical exam is negative for heart failure and active cardiac ischemia and her chest x-ray is clear. Recommendations: -Continue to trend cardiac enzymes. -Echocardiogram as described above. -Given her cardiac risk factors and first episode of A. fib we will plan for Lexiscan nuclear stress test when her abdominal discomfort and nausea/vomiting is improved. -We will continue to follow with you.
[2020-01-24] MEDS ORDERED: DOCUSATE SODIUM 100 MG CAPSULE PO SCH (10:00)
[2020-01-24] MEDS ORDERED: ENOXAPARIN SODIUM INJ 120 MG/0.8 ML DISP.SYRIN SUBCUT SCH (10:00)
[2020-01-24] MEDS: FAMOTIDINE 20 MG TABLET PO SCH ×2 (10:52→21:36)
[2020-01-24] MEDS: APIXABAN 5 MG TABLET PO SCH ×2 (10:52→18:08)
[2020-01-24 13:58] LABS: CREATINE KINASE MB 1.7 ng/mL (<4.55)
[2020-01-24 14:01] LABS: TROPONIN I 0.04 ng/mL
--- NOTE | 2020-01-24 16:27 | XCELERA REPORT ---
[address] [address] Transthoracic Echocardiogram Report Name: BENITO CUENCA Age: 64 yrs Gender: Female : 1955 Patient Status: Inpatient Patient Location: [place] [address]^[id number] Study Date: 01/24/2020 02:41 PM Height: 67 in Weight: 252 lb BSA: 2.2 m2 Procedure: A complete two-dimensional transthoracic echocardiogram was performed (2D, M-mode, spectral and color flow Doppler). The study was technically adequate with some images being suboptimal in quality. Reason For Study: Atrial fibrillation Ordering Physician: MICKEY SALAZAR Performed By: Sofia Khoury Interpretation Summary The left ventricle is grossly normal size. The left ventricular ejection fraction is normal. The Ejection Fraction estimate is 65-70%. Doppler measurements suggest normal left ventricular diastolic function. The left ventricular wall motion is normal. The left ventricular apex is not well visualized. Mild to moderate TR. Mild pulmonary hypertension with pressures estimated between 44 and 49 mmHg. No prior studies for comparison. MMode/2D Measurements & Calculations RVDd: 2.5 cm LVIDd: 5.0 cm FS: 40.6 % Ao root diam: 3.0 cm IVSd: 0.87 cm LVIDs: 3.0 cm EDV(Teich): 117.7 ml Ao root area: 7.1 cm2 LVPWd: 0.88 cm ESV(Teich): 34.0 ml LA dimension: 3.3 cm EF(Teich): 71.1 % Doppler Measurements & Calculations MV E max chiquita: MV P1/2t max chiquita: Ao V2 max: LV V1 max P.8 cm/sec 125.4 cm/sec 156.8 cm/sec 6.2 mmHg MV A max chiquita: MV P1/2t: 61.4 msec Ao max PG: LV V1 max: 74.5 cm/sec MVA(P1/2t): 3.6 cm2 9.8 mmHg 124.9 cm/sec MV E/A: 1.7 MV dec slope: 598.1 cm/sec2 MV dec time: 0.21 sec PA V2 max: PI end-d chiquita: TR max chiquita: MV P1/2t-pr_phl: 112.0 cm/sec 141.6 cm/sec 312.2 cm/sec 61.4 msec PA max P.0 mmHg TR max P.0 mmHg Left Ventricle The left ventricle is grossly normal size. The left ventricular ejection fraction is normal. The Ejection Fraction estimate is 65-70%. Doppler measurements suggest normal left ventricular diastolic function. The left ventricular wall motion is normal. The left ventricular apex is not well visualized. Right Ventricle The right ventricle is grossly normal size. The right ventricular systolic function is normal. Atria The right atrium is normal. The left atrial size is normal. Interarterial septum not well visualized and not well dopplered. Cannot comment on ASD/PFO presence. Mitral Valve The mitral valve is normal in structure and function. There is no mitral valve stenosis. There is no mitral regurgitation noted. Aortic Valve The aortic valve is normal in structure and functions normally. There is no aortic valve stenosis. No aortic regurgitation is present. Tricuspid Valve The tricuspid is normal in structure and function. There is a mild to moderate amount of tricuspid regurgitation. There is mild pulmonary hypertension by echo. Best estimated RVSP is approximately 44-49 mm/Hg. Pulmonic Valve The pulmonic valve is not well visualized. There is a trace or physiologic amount of pulmonic regurgitation. Great Vessels The inferior vena cava appeared normal and decreased > 50% with respiration (RAP 5-10 mmHg). Effusions There is no pericardial effusion. There is no pleural effusion. : MICKEY SALAZAR Antonio
[2020-01-24 17:59] LABS: CREATINE KINASE MB 1.2 ng/mL (<4.55); TROPONIN I 0.042 ng/mL
--- NOTE | 2020-01-24 18:43 | PDOC PROGRESS REPORT ---
Subjective Progress Note for:: 01/24/20 Subjective:: Converted from AFRVR to NSR early this morning and was subsequently weaned off dilt gtt with no further evidence of atrial fibrillation on telemetry. Reason For Visit: NEW ONSET AFRVR Physical Exam Vital Signs: Temp Pulse Resp BP Pulse Ox 98.1 F 75 16 130/51 H 100 01/24/20 02:32 01/24/20 18:20 01/24/20 12:13 01/24/20 12:13 01/24/20 12:13 Intake & Output 01/23/20 01/24/20 01/25/20 06:59 06:59 06:59 Intake Total 1136 214 Output Total 200 Balance 936 214 Weight 114.305 kg Results Laboratory Results: 01/23/20 22:23 01/23/20 22:23 01/23/20 01/23/20 01/23/20 22:23 22:23 22:23 WBC 7.6 RBC 4.71 Hgb 12.0 Hct 36.6 MCV 78 L MCH 25.5 L MCHC 32.8 RDW 15.5 H Plt Count 266 Seg Neutrophils % 58.3 Sodium 140.3 Potassium 3.2 L Chloride 97 L Carbon Dioxide 25 Anion Gap 18 BUN 24 H Creatinine 0.88 Est GFR ( Amer) > 60 Glucose 100 Calcium 11.6 H Magnesium 1.5 L Total Bilirubin 0.8 AST 41 H Alkaline Phosphatase 78 Total Protein 8.4 H Albumin 4.4 Lipase 93.2 TSH Free T4 Urine Color Urine Appearance Urine pH Ur Specific [place] Urine Protein Urine Glucose (UA) Urine Ketones Urine Blood Urine Nitrite Ur Leukocyte Esterase Ur Squamous Epith Cells 01/23/20 01/24/20 01/24/20 22:23 00:43 13:10 WBC RBC Hgb Hct MCV MCH MCHC RDW Plt Count Seg Neutrophils % Sodium Potassium Chloride Carbon Dioxide Anion Gap BUN Creatinine Est GFR ( Amer) Glucose Calcium Magnesium Total Bilirubin AST Alkaline Phosphatase Total Protein Albumin Lipase TSH < 0.01 L Free T4 4.36 H Urine Color YELLOW Urine Appearance CLOUDY Urine pH 6.0 Ur Specific [place] 1.014 Urine Protein 100 H Urine Glucose (UA) NEGATIVE Urine Ketones 20 H Urine Blood MODERATE H Urine Nitrite NEGATIVE Ur Leukocyte Esterase LARGE H Ur Squamous Epith Cells RARE 01/23/20 01/24/20 01/24/20 22:23 06:25 06:25 Creatine Kinase 45 CK-MB (CK-2) 1.48 Troponin I 0.037 0.045 01/24/20 01/24/20 01/24/20 13:10 13:10 17:15 Creatine Kinase 46 46 CK-MB (CK-2) 1.70 Troponin I 0.040 01/24/20 17:15 Creatine Kinase CK-MB (CK-2) 1.20 Troponin I 0.042 Impressions: Chest X-Ray 01/23/20 19:36 IMPRESSION: No evidence of acute cardiopulmonary disease. Assessment and Plan - Plan Summary Summary: 64 year old female with history of HTN, HLD, DM2, lifelong non-smoker who presented to the ED with 1-2 months of myriad symptoms including, N/V, diarrhea, abdominal discomfort. She was found to be in AFRVR and have hypokalemia and hypomagnesemia, all likely due to undiagnosed hyperthyroidism. AFRVR: converted to NSR with diltiazem drip - cardiology consulted - diltiazem drip discontinued and started on oral metoprolol therapy - lovenox discontinued, started on Eliquis - TTe ordered NSTEMI: in the s/o AFRVR. She has no ischemic EKG changes. She denies SOB, chest pain/pressure. - cardiology consulted - awaiting TTE results, rule out LV EF decrease and/or WMA hypokalemia and hypomagnesemia: likely due to vomiting/diarrhea - electrolytes were replaced Hyperthyroidism: new diagnosis, TSH undetectable, FT4 elevated, awaiting add on T3 - start levothyroxine at 112 mcg daily (decreased from full anticipated dose of 1.6 mcg/kg/day given older age, unknown chronicity) - outpatient thyroid US - Time Time Spent with patient: 15-24 minutes Anticipated Discharge Disposition: Home, Self Care Anticipated Discharge Timeframe: within 48 hours
[2020-01-25] MEDS ORDERED: LEVOTHYROXINE SODIUM 0.112 MG TABLET PO SCH (06:00)
[2020-01-25] MEDS: MAGNESIUM OXIDE 400 MG TABLET PO SCH ×3 (08:10→17:18)
[2020-01-25] MEDS: POTASSIUM CHLORIDE 10 MEQ TABLET.ER PO SCH ×3 (08:11→17:17)
--- NOTE | 2020-01-25 08:58 | PDOC PROGRESS REPORT ---
Subjective Progress Note for:: 01/25/20 Subjective:: BENITO CUENCA is a 64 year old female with history of hypertension, type 2 diabetes, hyperlipidemia, lifelong non-smoker, without known drug allergies and no family history of premature coronary artery disease who is consulted to our service for evaluation of new onset of atrial fibrillation. On initial presentation the patient was found to be in rapid atrial fibrillation, hypokalemic and hypomagnesemic therefore she was begun on a diltiazem drip and her electrolytes were replaced. She converted spontaneously to normal sinus rhythm. The admitting hospitalist's note states that she had been having dyspnea for approximately 1 month however during my interview she denied shortness of breath, [place], lower extremity edema, chest pain, palpitations, diaphoresis, syncope and presyncope. She was adamant that she did not have chest pain or shortness of breath but that her main complaint is a bad smell that has been constantly present since her knee surgery on 12/12/2019 that makes her stomach "squeezy" and provokes nausea and vomiting. 01/25/2020: The patient had uneventful night and continues to be in normal sinus rhythm. She appears to have a UTI. This morning she denies chest pain, shortness of breath, palpitations, dizziness or lightheadedness. Her troponins have been flat and her echocardiogram demonstrated a normal ejection fraction without gross wall motion normalities. She feels so improved that she is asking to go home. Physical exam on 01/25/2020: GENERAL: Looks older than stated age, obese, appears uncomfortable. Oriented x3 with normal mood. Not in acute distress. Well groomed and well developed. HEENT: Normocephalic, atraumatic. Pupils equal. Sclerae anicteric. Oropharynx moist. NECK: No JVD. No carotid bruits. LUNGS: Clear to auscultation bilaterally. Normal respiratory effort without the use of accessory muscles or intercostal retractions. CARDIOVASCULAR: Regular rate and rhythm, normal S1 and S2 without murmurs, rubs, or gallops. PMI not displaced. ABDOMEN: Difficult to evaluate for organomegaly due to her obesity. No overt tenderness to palpation. No abdominal aorta bruit noted. EXTREMITIES: No edema, no cyanosis, no clubbing. +2 pulses femoral and pedal pulses bilaterally. SKIN: No lesions or rashes. MUSCULOSKELETAL: No chest tenderness to palpation. NEUROLOGIC: Nonfocal. No gross sensory or motor deficits bilateral upper or lower extremities. Cardiac studies: Echocardiogram on 01/24/2020: -EF 65 to 70%. -No focal wall motion abnormalities. -Normal diastolic function. -Mild to moderate TR. -Mild pulmonary hypertension with pressures estimated between 44 and 49 mmHg. Reason For Visit: NEW ONSET ATRIAL FIBRILLATION WITH RAPID VENTRICUL Physical Exam Vital Signs: Temp Pulse Resp BP Pulse Ox 98.1 F 73 18 120/51 L 100 01/25/20 05:12 01/25/20 05:12 01/25/20 05:12 01/25/20 05:12 01/25/20 05:12 Intake & Output 01/23/20 01/24/20 01/25/20 06:59 06:59 06:59 Intake Total 1136 214 Output Total 200 Balance 936 214 Weight 114.305 kg Results Laboratory Results: 01/23/20 22:23 01/23/20 22:23 01/24/20 01/24/20 13:10 17:10 Free T4 4.36 H Free T3 pg/mL 11.60 H 01/23/20 01/24/20 01/24/20 22:23 06:25 06:25 Creatine Kinase 45 CK-MB (CK-2) 1.48 Troponin I 0.037 0.045 01/24/20 01/24/20 01/24/20 13:10 13:10 17:15 Creatine Kinase 46 46 CK-MB (CK-2) 1.70 Troponin I 0.040 01/24/20 17:15 Creatine Kinase CK-MB (CK-2) 1.20 Troponin I 0.042 Impressions: Chest X-Ray 01/23/20 19:36 IMPRESSION: No evidence of acute cardiopulmonary disease. Current Medication List Generic Name Dose Route Start Last Admin Trade Name Freq PRN Reason Stop Dose Admin Acetaminophen 650 mg 01/24/20 03:05 Tylenol 325 Mg Tablet PO 02/23/20 03:04 Q4HP PRN For headache, pain or fever Al Hydrox/Mg Hydrox/Simethicone 30 ml 01/24/20 02:52 Maalox Plus Susp 30 Udcup PO 02/23/20 02:51 Q6HP PRN HEARTBURN Apixaban 5 mg 01/24/20 10:00 01/24/20 18:08 Eliquis 5 Mg Tablet PO 02/23/20 09:59 5 mg BID ASIM Administration Famotidine 20 mg 01/24/20 10:00 01/24/20 21:36 Pepcid 20 Mg Tablet PO 02/23/20 09:59 20 mg Q12 ASIM Administration Guaifenesin 200 mg 01/24/20 03:05 Robitussin Syrup 200 Mg/10 Ml Ud Cup PO 02/23/20 03:04 Q4HP PRN COUGH Magnesium Hydroxide 30 ml 01/24/20 02:52 Milk Of Magnesia 30 Ml Udcup PO 02/23/20 02:51 HSP PRN FOR CONSTIPATION Magnesium Oxide 400 mg 01/25/20 08:00 Mag-Ox 400 Mg Tablet PO 02/24/20 07:59 MEALS ASIM Melatonin 5 mg 01/24/20 03:05 Melatonin 5 Mg Tablet PO 02/23/20 03:04 HSP PRN SLEEP OR INSOMNIA Ondansetron HCl 4 mg 01/24/20 02:52 Zofran Inj/Pf 4 Mg/2 Ml Sdv IV 02/23/20 02:51 Q4HP PRN FOR NAUSEA/VOMITING Potassium Chloride 20 meq 01/24/20 08:00 01/24/20 18:08 Klor-Con 10 Meq Tablet Er PO 02/23/20 07:59 20 meq MEALS ASIM Administration Sodium Chloride 2.5 ml 01/24/20 06:00 01/25/20 06:05 Saline Flush 2.5 Ml Monoject Prefil Syrin IV 02/23/20 05:59 2.5 ml Q8 ASIM Administration Discontinued Medications Generic Name Dose Route Start Last Admin Trade Name Freq PRN Reason Stop Dose Admin Docusate Sodium 100 mg 01/24/20 10:00 01/24/20 10:52 Colace 100 Mg Capsule PO 02/23/20 09:59 100 mg BID ASIM Administration Enoxaparin Sodium 100 mg 01/24/20 00:11 01/24/20 00:18 Lovenox Inj 100 Mg/1 Ml Disp.Syrin SUBCUT 01/24/20 00:12 100 mg ONCE ONE Administration Enoxaparin Sodium 115 mg 01/24/20 10:00 Lovenox Inj 120 Mg/0.8 Ml Disp.Syrin SUBCUT 02/23/20 09:59 Q12 ASIM Sodium Chloride 1,000 mls @ 0 mls/hr 01/23/20 19:32 01/23/20 23:50 Nacl 0.9% 1000 Ml Iv Soln IV 01/23/20 19:33 Infused BOLUS ONE Infusion Wide Open Diltiazem HCl 125 mg in 125 mls @ 0 mls/hr 01/24/20 00:06 01/24/20 03:10 Cardizem Rtu Inj 125 Mg-D5w 125 Ml Premix IV 02/23/20 00:05 Infused CONTINUOUS PRN Titration THIS MED IS NOT "PRN" Protocol Titrate Magnesium Sulfate/Dextrose 1 gm in 100 mls @ 100 mls/hr 01/24/20 00:37 01/24/20 02:08 Magnesium Sulfate Rtu-D5w 1 Gm/100 Ml Premix IV 01/24/20 01:36 Infused NOW ONE Infusion Diltiazem HCl 125 mg in 125 mls @ 0 mls/hr 01/24/20 03:02 01/24/20 17:59 Cardizem Rtu Inj 125 Mg-D5w 125 Ml Premix IV 02/23/20 03:01 Infused CONTINUOUS PRN Titration THIS MED IS NOT "PRN" Protocol Titrate Levothyroxine Sodium 0.112 mg 01/25/20 06:00 Synthroid 0.112 Mg Tablet PO 02/24/20 05:59 Q6AM ASIM Lorazepam 1 mg 01/24/20 03:05 Ativan Inj 2 Mg/1 Ml Vial IV 01/31/20 03:04 Q4HP PRN ANXIETY/AGITATION Morphine Sulfate 2 mg 01/24/20 03:08 Morphine 10 Mg/Ml Inj IV 01/31/20 03:07 Q2HP PRN PAIN SCALE OF 2 Morphine Sulfate 3 mg 01/24/20 03:08 Morphine 10 Mg/Ml Inj IV 01/31/20 03:07 Q2HP PRN FOR PAIN SCALE 3-4 Morphine Sulfate 4 mg 01/24/20 03:08 Morphine 10 Mg/Ml Inj IV 01/31/20 03:07 Q2HP PRN PAIN SCALE OF 5 Ondansetron HCl 4 mg 01/23/20 19:32 01/23/20 22:30 Zofran Inj/Pf 4 Mg/2 Ml Sdv IV 01/23/20 19:33 4 mg NOW ONE Administration Ondansetron HCl Confirm 01/23/20 22:06 01/23/20 22:32 Zofran Inj/Pf 4 Mg/2 Ml Sdv Administered 01/23/20 22:07 Not Given Dose 4 mg .ROUTE .STK-MED ONE Ondansetron HCl 4 mg 01/24/20 00:05 01/24/20 00:16 Zofran Inj/Pf 4 Mg/2 Ml Sdv IV 01/24/20 00:06 4 mg NOW ONE Administration Potassium Chloride 40 meq 01/24/20 00:37 01/24/20 01:01 Klor-Con 10 Meq Tablet Er PO 01/24/20 00:38 40 meq NOW ONE Administration Assessment & Plan - Diagnosis (1) Atrial fibrillation with rapid ventricular response Is this a current diagnosis for this admission?: Yes Plan: The patient has remained in normal sinus rhythm after she spontaneously. The etiology of her atrial fibrillation is multifactorial to include possible silent ischemia given her cardiac risk factors, her UTI, her pulmonary hypertension as well as possible sleep apnea. Of note she was noted to be hypokalemic yesterday therefore I recommend potassium supplementation if not done yet. She still p ending BMP this morning. Recommendations: -Continue with anticoagulation given her elevated chads 2 vascular score of 4. -Given her cardiac risk factors I have started her on high intensity statin th erapy and baby aspirin. -We will plan for outpatient pharmacological nuclear stress test which has a lready been ordered. -Cardiology does not have further recommendations therefore we will sign off the case. (2) Troponin I above reference range Is this a current diagnosis for this admission?: Yes Plan: Her troponins have been flat and in the absence of clinical ischemia. She does have multiple risk factors for coronary artery disease therefore we will proceed with outpatient pharmacological nuclear stress test to assess for silent ischemia particularly in the setting of her first episode of atrial fibrillation. Recommendations: -Start baby aspirin. -Start high intensity statin therapy particularly with her history of h yperlipidemia. -Outpatient pharmacological nuclear stress test. -The patient will follow-up with Dr. Cespedes in the outpatient setting. (3) Hyperlipidemia associated with type 2 diabetes mellitus Is this a current diagnosis for this admission?: Yes Plan: The patient has a history of hyperlipidemia however has not been treated. Recommendations: -Fasting lipid panel pending. -Start Lipitor 40 mg daily. -Follow-up lipid panel and LFTs in 6 weeks with her primary care provider. (4) Pulmonary hypertension Is this a current diagnosis for this admission?: Yes Plan: The patient has mild pulmonary hypertension by echocardiography with estimated pressures between 44 and 49 mmHg. The etiology of her pulmonary hypertension is likely multifactorial to include possible sleep apnea as well as restrictive lung disease given her body habitus and obesity. Recommendations: -Sleep study as an outpatient. -Primary care provider to consider pulmonary consult and arrange for sleep study.
[2020-01-25] MEDS ORDERED: ASPIRIN 81 MG TABLET, CHEWABLE PO SCH (10:00)
[2020-01-25] MEDS ORDERED: METHIMAZOLE 5 MG TABLET PO SCH (10:00)
[2020-01-25 10:12] LABS: HEMATOCRIT 31.3 % (36.0-47.0); HEMOGLOBIN 10.1 g/dL (12.0-15.5); MEAN CORPUSCULAR HEMOGLOBIN 25.2 pg (27.0-33.4); MEAN CORPUSCULAR HGB CONC 32.4 g/dL (32.0-36.0); MEAN CORPUSCULAR VOLUME 78 fl (80-97); PLATELET COUNT 184 10^3/uL (150-450); RED BLOOD COUNT 4.01 10^6/uL (3.72-5.28); RED CELL DISTRIBUTION WIDTH 15.2 % (11.5-14.0)
[2020-01-25 10:13] LABS: ALBUMIN 3.3 g/dL (3.5-5.0); ALKALINE PHOSPHATASE 59 U/L (38-126); ANION GAP 10 (5-19); ASPARTATE AMINO TRANSFERASE 37 U/L (14-36); BILIRUBIN,DIRECT 0.5 mg/dL (0.0-0.4); BILIRUBIN,TOTAL 0.8 mg/dL (0.2-1.3); BLOOD UREA NITROGEN 17 mg/dL (7-20); CALCIUM 10.1 mg/dL (8.4-10.2); CARBON DIOXIDE 26 mmol/L (22-30); CHLORIDE 102 mmol/L (98-107); CHOLESTEROL 116.36 mg/dL (0-200); GLUCOSE 94 mg/dL (75-110); TOTAL PROTEIN 6.5 g/dL (6.3-8.2); TRIGLYCERIDES 95 mg/dL (<150)
[2020-01-25 10:24] LABS: DIRECT LDL 67 mg/dL (<100)
[2020-01-25] MEDS: FAMOTIDINE 20 MG TABLET PO SCH (11:11)
[2020-01-25] MEDS: APIXABAN 5 MG TABLET PO SCH (11:11)
[2020-01-25] MEDS ORDERED: METOPROLOL TARTRATE 25 MG TABLET PO SCH (12:00)
--- NOTE | 2020-01-25 15:24 | EKG REPORT ---
SEVERITY:- BORDERLINE ECG - SINUS RHYTHM ATRIAL PREMATURE COMPLEX BORDERLINE LEFT AXIS DEVIATION BORDERLINE T ABNORMALITIES, DIFFUSE LEADS : Confirmed by: Darrius Bennett MD 25-Jan-2020 15:23:22
[2020-01-25 16:54] VITALS: BP 111/59
[2020-01-25] MEDS ORDERED: RIVAROXABAN 10 MG TABLET PO SCH (17:00)
[2020-01-25 17:08] LABS: APPEARANCE,URINE CLOUDY; BILIRUBIN,URINE NEGATIVE (NEGATIVE); COLOR,URINE YELLOW; GLUCOSE, URINE NEGATIVE (NEGATIVE); KETONES,URINE TRACE mg/dL (NEGATIVE); LEUKOCYTE ESTERASE,URINE LARGE (NEGATIVE); NITRITE,URINE NEGATIVE (NEGATIVE); PROTEIN,URINE 100 mg/dL (NEGATIVE); URINE SPECIFIC GRAVITY 1.014; UROBILINOGEN,URINE NEGATIVE mg/dL (<2.0)
--- NOTE | 2020-01-25 18:49 | PDOC DISCHARGE SUMMARY ---
Impression - Admit/DC Date/PCP Admission Date/Primary Care Provider: 01/24/20 02:32 Discharge Date: 01/25/20 - Discharge Diagnosis (1) Hyperthyroidism determined by thyroid function test Is this a current diagnosis for this admission?: Yes (2) Atrial fibrillation with rapid ventricular response Is this a current diagnosis for this admission?: Yes (3) Hypokalemia Is this a current diagnosis for this admission?: Yes (4) Hypomagnesemia Is this a current diagnosis for this admission?: Yes (5) Nausea vomiting and diarrhea Is this a current diagnosis for this admission?: Yes (6) Person under investigation for COVID-19 Is this a current diagnosis for this admission?: Yes - Assessment Summary: Ms. Rucker is a 64 year old woman with history of HTN, HLD, lifelong non- smoker who presented to the ED with 2 months' history of myriad symptoms including, N/V, diarrhea, vague abdominal discomfort, poor appetite, weight loss and anxiety. She also endorsed acute onset SOB/DICKERSON on the day of the admission. In the ED, she was found to be in AFRVR and have hypokalemia and hypomagnesemia, all likely due to undiagnosed hyperthyroidism. New onset atrial fibrillation with rapid ventricular response: She converted to normal sinus rhythm after initiation of diltiazem drip. Atrial fibrillation is likely secondary to new diagnosis of hyperthyroidism. As such diltiazem drip was discontinued and she was started on oral beta-aniceto therapy with metoprolol as well as anticoagulation with Xarelto. Echocardiogram showed NSTEMI: in the s/o AFRVR, she had minimally elevated troponin to 0.04. She has had no ischemic EKG changes, and her SOB/DICKERSON resolved with treatment of AFRVR. She never had chest pain/pressure. Cardiology consulted and recommended TTE, which showed a normal LV ejection fraction and no wall motion abnormalities. She has been set up for an outpatient pharmacological nuclear stress test with cardiology in 1.5 weeks. The patient will follow-up with Dr. Cespedes in the outpatient setting. She is now on anticoagulation and will continue taking a statin. Mild hypokalemia and hypomagnesemia: likely due to vomiting and diarrhea in the setting of hyperthyroidism. Electrolytes were repleted. Hyperthyroidism: new diagnosis, TSH undetectable, FT4 and T3 elevated. Thyrotropin antibody is pending. Thyroid ultrasound showed a multinodular goiter with largest nodule measuring no more than 16 mm. She will need close outpatient follow-up with her primary care doctor for further work-up, including an uptake study. In the meantime she has been started on low-dose methimazole as well as a beta-aniceto. He was advised to follow-up with her primary care doctor within 1 week of discharge. Pulmonary hypertension: mild pulmonary hypertension by echocardiography with estimated pressures between 44 and 49 mmHg. The etiology of her pulmonary hypertension is likely multifactorial to include possible sleep apnea as well as restrictive lung disease given her body habitus and obesity. Recommend to pursue a sleep study as an outpatient for further work up. - Additional Information Resuscitation Status: Full Code Discharge Diet: Cardiac Discharge Activity: Activity As Tolerated Referrals: [facility] [Provider Group] (Appointment request noted in follow up appointment book. [facility]) Prescriptions: Metoprolol Tartrate [Lopressor 25 mg Tablet] 25 mg PO Q12 #30 tablet Methimazole [Tapazole 5 mg Tablet] 2.5 mg PO DAILY #30 tablet Rivaroxaban [Xarelto 10 mg Tablet] 20 mg PO WSUPPER #30 tablet Home Medications: Hydrochlorothiazide 12.5 mg PO DAILY 08/03/19 Cetirizine HCl [Zyrtec 10 mg Tablet] 10 mg PO DAILY #30 tablet 01/13/20 Atorvastatin Calcium [Lipitor 20 mg Tablet] 20 mg PO QHS 01/24/20 Cholecalciferol (Vitamin D3) [Vitamin D3 1000 Unit Tablet] 1,000 unit PO DAILY 01/24/20 Losartan Potassium 100 mg PO DAILY 01/24/20 Multivitamin [Tab-A-Pilar (Multiple Vitamin) Tablet] 1 tab PO DAILY 01/24/20 Oxycodone HCl/Acetaminophen [Percocet 5-325 mg Tablet] 1 tab PO Q8HP PRN 01/24/20 Methimazole [Tapazole 5 mg Tablet] 2.5 mg PO DAILY #30 tablet 01/25/20 Metoprolol Tartrate [Lopressor 25 mg Tablet] 25 mg PO Q12 #30 tablet 01/25/20 Rivaroxaban [Xarelto 10 mg Tablet] 20 mg PO WSUPPER #30 tablet 01/25/20 History of Present Illiness History of Present Illness: BENITO RUCKER is a 64 year old female Physical Exam Vital Signs: Temp Pulse Resp BP Pulse Ox 98.5 F 75 18 111/59 L 99 01/25/20 16:45 01/25/20 16:45 01/25/20 16:45 01/25/20 16:45 01/25/20 16:45 Intake & Output 01/24/20 01/25/20 01/26/20 06:59 06:59 06:59 Intake Total 1136 214 Output Total 200 250 Balance 936 -36 Weight 114.305 kg 105.9 kg Results Laboratory Results: WBC 4.0 10^3/uL (4.0-10.5) 01/25/20 08:49 RBC 4.01 10^6/uL (3.72-5.28) 01/25/20 08:49 Hgb 10.1 g/dL (12.0-15.5) L 01/25/20 08:49 Hct 31.3 % (36.0-47.0) L 01/25/20 08:49 MCV 78 fl (80-97) L 01/25/20 08:49 MCH 25.2 pg (27.0-33.4) L 01/25/20 08:49 MCHC 32.4 g/dL (32.0-36.0) 01/25/20 08:49 RDW 15.2 % (11.5-14.0) H 01/25/20 08:49 Plt Count 184 10^3/uL (150-450) 01/25/20 08:49 Lymph % (Auto) 29.5 % (13-45) 01/23/20 22:23 [place] % (Auto) 9.9 % (3-13) 01/23/20 22:23 Eos % (Auto) 1.4 % (0-6) 01/23/20 22:23 Baso % (Auto) 0.9 % (0-2) 01/23/20 22:23 Absolute Neuts (auto) 4.5 10^3/uL (1.7-8.2) 01/23/20 22:23 Absolute Lymphs (auto) 2.3 10^3/uL (0.5-4.7) 01/23/20 22:23 Absolute Monos (auto) 0.8 10^3/uL (0.1-1.4) 01/23/20 22:23 Absolute Eos (auto) 0.1 10^3/uL (0.0-0.6) 01/23/20 22:23 Absolute Basos (auto) 0.1 10^3/uL (0.0-0.2) 01/23/20 22:23 Seg Neutrophils % 58.3 % (42-78) 01/23/20 22:23 Sodium 137.6 mmol/L (137-145) 01/25/20 08:49 Potassium 4.0 mmol/L (3.6-5.0) 01/25/20 08:49 Chloride 102 mmol/L (98-107) 01/25/20 08:49 Carbon Dioxide 26 mmol/L (22-30) 01/25/20 08:49 Anion Gap 10 (5-19) 01/25/20 08:49 BUN 17 mg/dL (7-20) 01/25/20 08:49 Creatinine 0.69 mg/dL (0.52-1.25) 01/25/20 08:49 Est GFR ( Amer) > 60 (>60) 01/25/20 08:49 Est GFR (MDRD) Non-Af > 60 (>60) 01/25/20 08:49 Glucose 94 mg/dL (75-110) 01/25/20 08:49 Calcium 10.1 mg/dL (8.4-10.2) 01/25/20 08:49 Magnesium 1.5 mg/dL (1.6-2.3) L 01/25/20 08:49 Total Bilirubin 0.8 mg/dL (0.2-1.3) 01/25/20 08:49 Direct Bilirubin 0.5 mg/dL (0.0-0.4) H 01/25/20 08:49 Neonat Total Bilirubin Not Reportable 01/25/20 08:49 Neonat Direct Bilirubin Not Reportable 01/25/20 08:49 Neonat Indirect Bili Not Reportable 01/25/20 08:49 AST 37 U/L (14-36) H 01/25/20 08:49 ALT 16 U/L (<35) 01/25/20 08:49 Alkaline Phosphatase 59 U/L (38-126) 01/25/20 08:49 Creatine Kinase 46 U/L (30-135) 01/24/20 17:15 CK-MB (CK-2) 1.20 ng/mL (<4.55) 01/24/20 17:15 Troponin I 0.047 ng/mL 01/25/20 08:49 Total Protein 6.5 g/dL (6.3-8.2) 01/25/20 08:49 Albumin 3.3 g/dL (3.5-5.0) L 01/25/20 08:49 Triglycerides 95 mg/dL (<150) 01/25/20 08:49 Cholesterol 116.36 mg/dL (0-200) 01/25/20 08:49 LDL Cholesterol Direct 67 mg/dL (<100) 01/25/20 08:49 VLDL Cholesterol 19.0 mg/dL (10-31) 01/25/20 08:49 HDL Cholesterol 31 mg/dL (>40) L 01/25/20 08:49 Lipase 93.2 U/L (23-300) 01/23/20 22:23 TSH < 0.01 uIU/mL (0.47-4.68) L 01/23/20 22:23 Free T4 4.36 ng/dL (0.78-2.19) H 01/24/20 13:10 Free T3 pg/mL 11.60 pg/mL (2.77-5.27) H 01/24/20 17:10 Urine Color YELLOW 01/25/20 15:30 Urine Appearance CLOUDY 01/25/20 15:30 Urine pH 7.0 (5.0-9.0) 01/25/20 15:30 Ur Specific [place] 1.014 01/25/20 15:30 Urine Protein 100 mg/dL (NEGATIVE) H 01/25/20 15:30 Urine Glucose (UA) NEGATIVE mg/dL (NEGATIVE) 01/25/20 15:30 Urine Ketones TRACE mg/dL (NEGATIVE) H 01/25/20 15:30 Urine Blood LARGE (NEGATIVE) H 01/25/20 15:30 Urine Nitrite NEGATIVE (NEGATIVE) 01/25/20 15:30 Urine Bilirubin NEGATIVE (NEGATIVE) 01/25/20 15:30 Urine Urobilinogen NEGATIVE mg/dL (<2.0) 01/25/20 15:30 Ur Leukocyte Esterase LARGE (NEGATIVE) H 01/25/20 15:30 Urine WBC (Auto) >182 /HPF 01/25/20 15:30 Urine RBC (Auto) 106 /HPF 01/25/20 15:30 Urine Bacteria (Auto) 3+ /HPF 01/25/20 15:30 Urine RBC 0-1 /HPF 01/24/20 00:43 Urine WBC 1-5 /HPF 01/24/20 00:43 Urine WBC Clumps MANY /HPF 01/25/20 15:30 Ur Squamous Epith Cells RARE /HPF 01/24/20 00:43 Squamous Epi Cells Auto 6 /HPF 01/25/20 15:30 Urine Bacteria 1+ /HPF 01/24/20 00:43 WBC Casts 0-1 /LPF 01/24/20 00:43 Urine Mucus (Auto) RARE /LPF 01/25/20 15:30 Urine Yeast (Budding) PRESENT /HPF 01/25/20 15:30 Urine Ascorbic Acid NEGATIVE (NEGATIVE) 01/25/20 15:30 COVID-19 Source NASOPHARYNGEAL 01/23/20 23:41 COVID-19 (AKIRA) NOT DETECTED 01/23/20 23:41 01/23/20 01/24/20 01/24/20 22:23 06:25 13:10 CK-MB (CK-2) 1.48 1.70 Troponin I 0.037 0.045 0.040 01/24/20 01/25/20 17:15 08:49 CK-MB (CK-2) 1.20 Troponin I 0.042 0.047 Impressions: Chest X-Ray 01/23/20 19:36 IMPRESSION: No evidence of acute cardiopulmonary disease. Stroke Is this a Stroke Patient?: No Acute Heart Failure - Is this a Heart Failure Patient?: No
[2020-01-25] MEDS ORDERED: ATORVASTATIN CALCIUM 40 MG TABLET PO SCH (22:00)
--- NOTE | 2020-01-25 22:24 | RADIOLOGY REPORT (SQ) ---
EXAM DESCRIPTION: Thyroid ultrasound. CLINICAL HISTORY: 64 years Female; hyperthyroidism of unknown etiology TECHNIQUE: Thyroid ultrasound with grayscale and Doppler as appropriate. COMPARISON: None FINDINGS: Thyroid size: Right lobe: The right lobe measures 4.7 x 2.4 x 2.7 cm. There is diffuse increased and vascularity throughout. Echogenicity is very heterogeneous. It is difficult to determine nodules from heterogeneous stroma. In the mid gland is a mixed echogenicity nodule which measures 1.5 x 2.1 x 1.5 cm. It is wider than it is tall. It is complex. Margins are ill-defined. This is a TR3 lesion. Isthmus: The isthmus is abnormal and measures 5.1 mm and contains a hypoechoic solid nodule that measures 7.5 x 5.4 x 4.9 mm. This is a TR4 four lesion. There is a adjacent hypoechoic solid nodule which measures 4.2 x 3.0 x 4.6 mm also within the isthmus. Left lobe: The left gland measures 4.3 x 1.4 x 1.6 cm and is very heterogeneous and hypervascular. There is a hyperechoic solid nodule which measures 1.6 x 1.3 x 1.2 cm. It is wider than it is tall with ill-defined margins. No calcifications. This also is a TR3 nodule. Lymph nodes: No enlarged or suspicious lymph nodes. IMPRESSION: 1. Enlarged thyroid gland with extremely heterogeneous echogenicity and marked hypervascularity suggesting thyroiditis. 2. Multiple thyroid nodules. These are either TR three or a TR four nodules. ACR TI-RADS recommendations: TR5 (>=7 points) - FNA if >=1 cm, follow-up if 0.5 - 0.9 cm every year for 5 years TR4 (4-6 points) - FNA if >=1.5 cm, follow-up if 1 - 1.4 cm in 1, 2, 3 and 5 years TR3 (3 points) - FNA if >=2.5 cm, follow -up if 1.5 - 2.4 cm in 1, 3 and 5 years TR2 (2 points) and TR1 (0 points) - No FNA or follow-up * ACR TI-RADS recommends that no more than two nodules with the highest ACR TI-RADS total point should be biopsied and no more than four nodules should be followed.
== END 2020-01-25 18:37 | disposition home or self-care (01) | DRG 645 ==
LOC: ER 17:40 → EH 01-24 02:32 → 3W 01-24 17:57
PROVIDERS: ADMIT Emergency Medicine; ATTEND Hospitalist
DX: E05.90 Thyrotoxicosis, unspecified without thyrotoxic crisis or storm (principal); I48.91 Unspecified atrial fibrillation; E87.6 Hypokalemia; E83.42 Hypomagnesemia; Z20.828 Contact with and (suspected) exposure to other viral communicable diseases; E78.5 Hyperlipidemia, unspecified; I10 Essential (primary) hypertension; Z96.651 Presence of right artificial knee joint; Z82.49 Family history of ischemic heart disease and other diseases of the circulatory system; Z79.899 Other long term (current) drug therapy; E66.9 Obesity, unspecified; Z68.35 Body mass index [BMI] 35.0-35.9, adult; E11.9 Type 2 diabetes mellitus without complications; R79.89 Other specified abnormal findings of blood chemistry; I27.20 Pulmonary hypertension, unspecified
CPT/HCPCS: 36415; 71045; 76536; 80053; 80061; 81001; 82550; 82553; 83519; 83690; 83735; 84439; 84443; 84481; 84484; 85025; 85027; 87086; 87088; 87186; 87635; 93005; 93010; 93306; 96361; 96365; 96372; 96375; 99285; C9803; J1650; J2405; J3475; J3490; J7030

== ENCOUNTER 2020-02-03 20:21 | Inpatient (IN) | payer MEDICARE, MEDICAID ==
--- NOTE | 2020-02-03 20:46 | ER Document Report ---
ED Medical Screen (RME) - General TRAVEL OUTSIDE OF THE [place] IN LAST 30 DAYS: No <PAT MARMOLEJO - Last Filed: 02/03/20 20:47> - HPI Onset: Other - Several weeks Onset/Duration: Gradual Associated Symptoms: Shortness of breath. denies: Chest pain, Cough (productive), Dysuria, Fever <MUSTAPHA MENDOZA - Last Filed: 02/03/20 23:25> - General Stated Complaint: SHORTNESS OF BREATH Time Seen by Provider: 02/03/20 20:37 Primary Care Provider: MICKEY RYDER MD [Primary Care Provider] - Follow up as needed Notes: Patient presents complaining of shortness of breath and generalized weakness. Patient states that she is not been able to keep food down since her recent hospital admission. Patient had been admitted for new onset A. fib with hypokalemia and hypomagnesemia, as well as hyperthyroidism. Patient had been COVID tested and was negative during her recent admission. I have greeted and performed a rapid initial assessment of this patient. A comp rehensive ED assessment and evaluation of the patient, analysis of test results and completion of the medical decision making process will be conducted by additional ED providers. (PAT MARMOLEJO) - Related Data Allergies/Adverse Reactions: No Known Allergies Allergy (Verified 01/23/20 19:26) Past Medical History - Past Medical History Cardiac Medical History: Reports: Hx Hypercholesterolemia, Hx Hypertension Denies: Hx Atrial Fibrillation, Hx Coronary Artery Disease, Hx DVT, Hx Heart Attack, Hx Pulmonary Embolism Pulmonary Medical History: Denies: Hx Asthma, Hx Bronchitis, Hx COPD, Hx Pneumonia Neurological Medical History: Denies: Hx Cerebrovascular Accident, Hx Seizures Endocrine Medical History: Denies: Hx Diabetes Mellitus Type 1, Hx Diabetes Mellitus Type 2, Hx Hyperthyroidism, Hx Hypothyroidism Renal/ Medical History: Denies: Hx Peritoneal Dialysis GI Medical History: Denies: Hx Cirrhosis, Hx Crohn's Disease, Hx Gastroesophageal Reflux Disease, Hx Hepatitis, Hx Ulcerative Colitis Musculoskeltal Medical History: Denies Hx Arthritis, Denies Hx Fibromyalgia Skin Medical History: Denies Hx Eczema, Denies Hx Psoriasis Psychiatric Medical History: Denies: Hx Depression Infectious Medical History: Denies: Hx Hepatitis Past Surgical History: Reports: Hx Section, Hx Orthopedic Surgery - R TKA - Immunizations Hx Diphtheria, Pertussis, Tetanus Vaccination: No <FRANCIEKELCAREYNEISHA - Last Filed: 02/03/20 20:47> - General Information source: Patient <MUSTAPHA MENDOZA - Last Filed: 02/03/20 23:25> Physical Exam - General General appearance: Alert In distress: Mild - Cardiovascular Rhythm: Irregularly irregular, Tachycardia Heart sounds: S1 appreciated, S2 appreciated <FRANCIE,KELJON - Last Filed: 02/03/20 20:47> - Vital signs Vitals: Temp 98.4 F 02/03/20 20:21 Course - Laboratory Result Diagrams: 02/03/20 22:13 02/03/20 22:13 - Diagnostic Test Radiology reviewed: Image reviewed <MUSTAPHA MENDOZA - Last Filed: 02/03/20 23:25> - Vital Signs Vital signs: Temp Pulse Resp BP Pulse Ox 98.4 F 100 02/03/20 20:21 02/03/20 22:58 - Laboratory Laboratory results interpreted by me: 02/03/20 02/03/20 02/03/20 22:13 22:13 22:13 MCV 77 L RDW 15.2 H Chloride 92 L Anion Gap 20 H BUN 29 H Creatinine 1.52 H Est GFR ( Amer) 41 L Est GFR (MDRD) Non-Af 34 L Calcium 10.3 H Direct Bilirubin 0.5 H NT-Pro-B Natriuret Pep 1350 H Urine Protein Urine Ketones Urine Blood Ur Leukocyte Esterase 02/03/20 22:13 MCV RDW Chloride Anion Gap BUN Creatinine Est GFR ( Amer) Est GFR (MDRD) Non-Af Calcium Direct Bilirubin NT-Pro-B Natriuret Pep Urine Protein 30 H Urine Ketones 20 H Urine Blood SMALL H Ur Leukocyte Esterase LARGE H - EKG Interpretation by Me Additional EKG results interpreted by me: 02/03/20 23:11 02/03/20 23:24 (MUSTAPHA MENDOZA) Doctor's Discharge <FRANCIEPAT - Last Filed: 02/03/20 20:47> <MUSTAPHA MENDOZA - Last Filed: 02/03/20 23:25> - Discharge Referrals: MICKEY RYDER MD [Primary Care Provider] - Follow up as needed
--- NOTE | 2020-02-03 21:36 | RADIOLOGY REPORT (SQ) ---
EXAM DESCRIPTION: XR CHEST 1 VIEW COMPLETED DATE/TME: 02/03/2020 20:45 CLINICAL HISTORY: 64 years, Female, sob COMPARISON: Prior chest radiograph from 01/23/2020 NUMBER OF VIEWS: One TECHNIQUE: Single frontal view of the chest was obtained LIMITATIONS: None. FINDINGS: Cardiac and mediastinal contours are stable. Lungs are clear. No pleural effusion or pneumothorax. IMPRESSION: No acute disease. copyright 2010 [employer]- All Rights Reserved
[2020-02-03] MEDS ORDERED: NORMAL SALINE 1000 ML 1,000 ML IV ONE (21:57)
[2020-02-03] MEDS ORDERED: ONDANSETRON HCL INJ/PF 4 MG/2 ML SDV IV ONE (21:57)
[2020-02-03 22:30] LABS: ABSOLUTE LYMPHOCYTES (AUTO) 2.7 10^3/uL (0.5-4.7); ABSOLUTE MONOCYTES (AUTO) 0.6 10^3/uL (0.1-1.4); EOSINOPHILS % (AUTO) 0.5 % (0-6); PLATELET COUNT 272 10^3/uL (150-450); TOTAL CELLS COUNTED % (AUTO) 100 %
[2020-02-03 22:50] LABS: ALBUMIN 4.4 g/dL (3.5-5.0); ALKALINE PHOSPHATASE 76 U/L (38-126); ASPARTATE AMINO TRANSFERASE 32 U/L (14-36); BILIRUBIN,DIRECT 0.5 mg/dL (0.0-0.4); BILIRUBIN,TOTAL 0.8 mg/dL (0.2-1.3); BLOOD UREA NITROGEN 29 mg/dL (7-20); CALCIUM 10.3 mg/dL (8.4-10.2); CARBON DIOXIDE 26 mmol/L (22-30); CHLORIDE 92 mmol/L (98-107); GLUCOSE 99 mg/dL (75-110); POTASSIUM 3.7 mmol/L (3.6-5.0); TOTAL PROTEIN 8.1 g/dL (6.3-8.2)
[2020-02-03 23:03] LABS: ANION GAP 20 (5-19)
[2020-02-03 23:05] LABS: APPEARANCE,URINE CLOUDY; BILIRUBIN,URINE NEGATIVE (NEGATIVE); COLOR,URINE YELLOW; GLUCOSE, URINE NEGATIVE (NEGATIVE); KETONES,URINE 20 mg/dL (NEGATIVE); LEUKOCYTE ESTERASE,URINE LARGE (NEGATIVE); NITRITE,URINE NEGATIVE (NEGATIVE); PROTEIN,URINE 30 mg/dL (NEGATIVE); TROPONIN I 0.044 ng/mL; URINE SPECIFIC GRAVITY 1.011; UROBILINOGEN,URINE NEGATIVE mg/dL (<2.0)
[2020-02-03 23:06] LABS: FREE T4 (FREE THYROXINE) 3.34 ng/dL (0.78-2.19)
[2020-02-03 23:10] LABS: ABSOLUTE BASOPHILS # (AUTO) 0.1 10^3/uL (0.0-0.2); ABSOLUTE NEUT (AUTO) 5.4 10^3/uL (1.7-8.2); HEMATOCRIT 36.1 % (36.0-47.0); HEMOGLOBIN 12.7 g/dL (12.0-15.5); LYMPHOCYTES % (AUTO) 30.5 % (13-45); MEAN CORPUSCULAR HEMOGLOBIN 27.1 pg (27.0-33.4); MEAN CORPUSCULAR VOLUME 77 fl (80-97); MONOCYTES % (AUTO) 6.5 % (3-13); RED BLOOD COUNT 4.67 10^6/uL (3.72-5.28); RED CELL DISTRIBUTION WIDTH 15.2 % (11.5-14.0); SEGMENTED NEUTROPHILS % (AUTO) 61.5 % (42-78); WHITE BLOOD COUNT 8.7 10^3/uL (4.0-10.5)
[2020-02-03 23:22] LABS: THYROID STIMULATING HORMONE < 0.01 uIU/mL (0.47-4.68)
--- NOTE | 2020-02-04 00:53 | ER Document Report ---
ED General - General Chief Complaint: Shortness Of Breath Stated Complaint: SHORTNESS OF BREATH Time Seen by Provider: 02/03/20 20:37 Primary Care Provider: MICKEY RYDER MD [Primary Care Provider] - Follow up as needed TRAVEL OUTSIDE OF THE [place] IN LAST 30 DAYS: No - HPI Onset: Other - Several weeks Onset/Duration: Gradual Associated symptoms: Diarrhea, Nausea, Vomiting. denies: Chest pain, Chills, Nonproductive cough, Productive cough, Fever Exacerbated by: Denies Relieved by: Denies Similar symptoms previously: Yes Notes: Patient is a 64-year-old female with a past medical history of recent atrial fibrillation diagnosis thought to be caused by newly diagnosed hyperthyroidism. She was recently admitted to the hospital earlier this month for this. Patient states that since she has been discharged, she has been unable to eat. She states she is vomiting and nauseous and has diarrhea. Patient states she has been taking her medications. She denies any chest pain. She states she has felt some slight shortness of breath. No cough. No recent illnesses. She states she has been so weak today that she could not walk to the bathroom. - Related Data Allergies/Adverse Reactions: No Known Allergies Allergy (Verified 01/23/20 19:26) Past Medical History - General Information source: Patient - Social History Smoking Status: Never Smoker Family History: Hypertension, Other - asthma - Past Medical History Cardiac Medical History: Reports: Hx Hypercholesterolemia, Hx Hypertension Denies: Hx Atrial Fibrillation, Hx Coronary Artery Disease, Hx DVT, Hx Heart Attack, Hx Pulmonary Embolism Pulmonary Medical History: Denies: Hx Asthma, Hx Bronchitis, Hx COPD, Hx Pneumonia Neurological Medical History: Denies: Hx Cerebrovascular Accident, Hx Seizures Endocrine Medical History: Denies: Hx Diabetes Mellitus Type 1, Hx Diabetes Mellitus Type 2, Hx Hyperthyroidism, Hx Hypothyroidism Renal/ Medical History: Denies: Hx Peritoneal Dialysis GI Medical History: Denies: Hx Cirrhosis, Hx Crohn's Disease, Hx Gastroesophageal Reflux Disease, Hx Hepatitis, Hx Ulcerative Colitis Musculoskeletal Medical History: Denies Hx Arthritis, Denies Hx Fibromyalgia Skin Medical History: Denies Hx Eczema, Denies Hx Psoriasis Psychiatric Medical History: Denies: Hx Depression Infectious Medical History: Denies: Hx Hepatitis Past Surgical History: Reports: Hx Section, Hx Orthopedic Surgery - R TKA - Immunizations Hx Diphtheria, Pertussis, Tetanus Vaccination: No Review of Systems - Review of Systems Notes: CONSTITUTIONAL: No fever. Positive for fatigue SKIN: No rash. HENT: No congestion, ear pain, or sore throat. EYES: No recent vision problems or eye pain. ENDOCRINE: Positive for thyroid problems. No polyuria or polydipsia. CARDIOVASCULAR: No chest pain or edema. RESPIRATORY: No cough, congestion, or wheezing. Positive for shortness of breath GASTROINTESTINAL: No abdominal pain. Positive for nausea, vomiting, and diarrhea GENITOURINARY: No dysuria. MUSCULOSKELETAL: No joint pain or swelling. LYMPHATIC: No swollen glands. NEUROLOGIC: No seizures. No headache, focal weakness or sensory changes. HEMATOLOGIC: No unusual bruising or bleeding. PSYCHIATRIC: No depression or anxiety. Physical Exam - Vital signs Vitals: Temp 98.4 F 02/03/20 20:21 - Notes Notes: VITAL SIGNS: Within normal limits. GENERAL: No acute distress. Appears ill. HEAD: Normal with no signs of head trauma. EYES: EOMI, conjunctiva normal, no discharge. EARS: Hearing grossly intact. NOSE: Normal. NECK: Normal range of motion, no tenderness, supple, no lymphadenopathy, No adenopathy, no JVD. CHEST: Clear breath sounds bilaterally. No wheezes, rales, or rhonchi. CARDIAC: Regular rate and rhythm. S1 and S2, without murmurs, gallops, or rubs. VASCULAR: No Edema. ABDOMEN: Normal and soft with no tenderness, no masses or pulsatile masses. GENITOURINARY: Normal, No tenderness LYMPATHTIC: No lymphadenopathy noted. MUSCULOSKELETAL: Good range of motion of all major joints. Extremities without clubbing, cyanosis or edema. NEUROLOGICAL: Alert and oriented x 3. No focal sensory or strength deficits. Speech normal. Follows commands appropriately. PSYCHIATRIC: Normal Affect, judgement and mood. SKIN: Normal appearance with no rashes or lesions. Course - Re-evaluation Re-evalutation: 02/04/20 01:15 Patient appears dehydrated. She has dry mucous membranes. Patient's lab work is consistent with dehydration. She has been unable to eat or drink since she was discharged. She is also in A. fib again today. This is mostly rate controlled after fluids. TSH/T4 suggestive of hyperthyroidism. I discussed with the hospitalist to admit the patient. Patient is very agreeable to this. - Vital Signs Vital signs: Temp Pulse Resp BP Pulse Ox 98.4 F 19 109/55 L 100 02/03/20 20:21 02/04/20 00:27 02/04/20 00:27 02/04/20 00:27 - Laboratory Result Diagrams: 02/03/20 22:13 02/03/20 22:13 Laboratory results interpreted by me: 02/03/20 02/03/20 02/03/20 22:13 22:13 22:13 MCV 77 L RDW 15.2 H Chloride 92 L Anion Gap 20 H BUN 29 H Creatinine 1.52 H Est GFR ( Amer) 41 L Est GFR (MDRD) Non-Af 34 L Calcium 10.3 H Direct Bilirubin 0.5 H NT-Pro-B Natriuret Pep 1350 H TSH Free T4 Free T3 pg/mL Urine Protein Urine Ketones Urine Blood Ur Leukocyte Esterase 02/03/20 02/03/20 22:13 22:13 MCV RDW Chloride Anion Gap BUN Creatinine Est GFR ( Amer) Est GFR (MDRD) Non-Af Calcium Direct Bilirubin NT-Pro-B Natriuret Pep TSH < 0.01 L Free T4 3.34 H Free T3 pg/mL 6.10 H Urine Protein 30 H Urine Ketones 20 H Urine Blood SMALL H Ur Leukocyte Esterase LARGE H - Diagnostic Test Radiology reviewed: Image reviewed, Reports reviewed - EKG Interpretation by Me Rate: Tachycardia Rhythm: A.Fib Kathryn/QRS: Left axis deviation Additional EKG results interpreted by me: 02/04/20 01:17 EKG interpreted by me. Atrial fibrillation at a rate of 124. QTc 483. Left axis deviation. No acute ST changes. EKG is changed from previous. Discharge - Discharge Clinical Impression: Dehydration, Weakness, Hyperthyroidism Condition: Stable Disposition: ADMITTED INPATIENT Admitting Provider: Amor (Hospitalist) Unit Admitted: Telemetry Referrals: MICKEY RYDER MD [Primary Care Provider] - Follow up as needed
[2020-02-04] MEDS ORDERED: LORAZEPAM INJ 2 MG/1 ML VIAL IV PRN (01:16)
[2020-02-04] MEDS ORDERED: ACETAMINOPHEN 325 MG TABLET PO PRN (01:16)
[2020-02-04] MEDS ORDERED: MORPHINE SULFATE 10 MG/ML INJ IV PRN ×4 (01:16→01:23)
[2020-02-04] MEDS ORDERED: ACETAMINOPHEN 650 MG SUPP.RECT PR PRN (01:16)
[2020-02-04] MEDS ORDERED: GUAIFENESIN SYRP 200 MG/10 ML UDC PO PRN (01:16)
[2020-02-04] MEDS ORDERED: MAG HYDROX/AL HYDROX/SIMETH SUSP 30 ML UDCUP PO PRN (01:16)
[2020-02-04] MEDS ORDERED: METOPROLOL TARTRATE PF/INJ 5 MG/5 ML SDV IV PRN (01:16)
[2020-02-04] MEDS ORDERED: MAGNESIUM HYDROXIDE SUSP 30 ML UDCUP PO PRN (01:16)
[2020-02-04] MEDS ORDERED: PROMETHAZINE HCL INJ 25 MG/1 ML VIAL IV PRN (01:21)
[2020-02-04] MEDS ORDERED: DEXTROSE 5%-LACTATED RINGERS 1,000 ML IV PRN (01:22)
--- NOTE | 2020-02-04 02:30 | EKG REPORT ---
SEVERITY:- ABNORMAL ECG - ATRIAL FIBRILLATION, V-RATE 89-156 BORDERLINE LEFT AXIS DEVIATION BORDERLINE R WAVE PROGRESSION, ANTERIOR LEADS NONSPECIFIC T ABNORMALITIES, DIFFUSE LEADS : Confirmed by: Brodie Pruett MD 04-Feb-2020 02:30:03
--- NOTE | 2020-02-04 04:10 | PDOC H&P ---
History of Present Illness Admission Date/PCP: 02/04/2020 00:56 MICKEY RYDER MD Patient complains of: Nausea with vomiting History of Present Illness: BENITO RUCKER is a 64 year old female who presented to the emergency room with a 10-day history of nausea and vomiting. She admits to being unable to keep any food or fluids on her stomach since she was discharged from the [facility] 10 days ago. Her nausea and vomiting have been accompanied by anorexia and associated with progressively worsening generalized weakness. She denies other associated or accompanying signs and symptoms. She denies prior similar episodes. She has not identified any aggravating or ameliorating factors for her nausea with vomiting. In the emergency room she was noted to be clinically dehydrated and her serum creatinine was elevated to 1.52 over a normal baseline. Her thyroid studies showed modest improvement over the levels from her recent admission. IV fluids were initiated and patient was admitted hospital for further evaluation and treatment. Past Medical History Cardiac Medical History: Reports: Atrial Fibrillation, Hyperlipidema, Hypertension Denies: Congestive Heart Failure, Coronary Artery Disease, DVT, Myocardial Infarction, Pulmonary Embolism Pulmonary Medical History: Denies: Asthma, Bronchitis, Chronic Obstructive Pulmonary Disease (COPD), Pneumonia EENT Medical History: Denies: Cataracts, Ears Neurological Medical History: Denies: Hemorrhagic CVA, Ischemic CVA, Seizures Endocrine Medical History: Reports: Hyperthyroidism, Obesity Denies: Diabetes Mellitus Type 1, Diabetes Mellitus Type 2, Hypothyroidism Renal/ Medical History: Denies: Chronic Kidney Disease, Nephrolithiasis Malignancy Medical History: Reports: None GI Medical History: Denies: Cirrhosis, Crohn's Disease, Gastroesophageal Reflux Disease, Hepatitis, Ulcerative Colitis Musculoskeltal Medical History: Denies: Arthritis, Fibromyalgia Skin Medical History: Denies: Eczema, Psoriasis Psychiatric Medical History: Denies: Alcohol Dependency, Depression, Substance Abuse, Tobacco Dependency Traumatic Medical History: Reports: None Hematology: Denies: Anemia, Bleeding Tendencies Infectious Medical History: Reports: None Past Surgical History Past Surgical History: Reports: Section, Orthopedic Surgery - Right total knee arthroplasty Social History Information Source: Patient Lives with: Family Smoking Status: Never Smoker Electronic Cigarette use?: No Frequency of Alcohol Use: None Hx Recreational Drug Use: No Drugs: None Hx Prescription Drug Abuse: No - Advance Directive Resuscitation Status: Full Code Surrogate healthcare decision maker:: Lei Rucker Family History Family History: Hypertension, Other - asthma Parental Family History Reviewed: Yes Children Family History Reviewed: No Sibling(s) Family History Reviewed.: Yes Medication/Allergy Home Medications: Hydrochlorothiazide 12.5 mg PO DAILY 08/03/19 Cetirizine HCl [Zyrtec 10 mg Tablet] 10 mg PO DAILY #30 tablet 01/13/20 Atorvastatin Calcium [Lipitor 20 mg Tablet] 20 mg PO QHS 01/24/20 Cholecalciferol (Vitamin D3) [Vitamin D3 1000 Unit Tablet] 1,000 unit PO DAILY 01/24/20 Losartan Potassium 100 mg PO DAILY 01/24/20 Multivitamin [Tab-A-Pilar (Multiple Vitamin) Tablet] 1 tab PO DAILY 01/24/20 Oxycodone HCl/Acetaminophen [Percocet 5-325 mg Tablet] 1 tab PO Q8HP PRN 01/24/20 Methimazole [Tapazole 5 mg Tablet] 2.5 mg PO DAILY #30 tablet 01/25/20 Metoprolol Tartrate [Lopressor 25 mg Tablet] 25 mg PO Q12 #30 tablet 01/25/20 Rivaroxaban [Xarelto 10 mg Tablet] 20 mg PO WSUPPER #30 tablet 01/25/20 Allergies/Adverse Reactions: No Known Allergies Allergy (Verified 01/23/20 19:26) Review of Systems Constitutional: PRESENT: as per HPI, anorexia, weakness - Generalized. ABSENT: chills, fever(s) Eyes: ABSENT: visual disturbances, other - Eye pain Ears: ABSENT: hearing changes, other - Ear pain Nose, Mouth, and Throat: ABSENT: headache(s), sore throat Cardiovascular: ABSENT: chest pain, palpitations Respiratory: ABSENT: cough, dyspnea Gastrointestinal: PRESENT: nausea, vomiting. ABSENT: abdominal pain, constipati on, diarrhea Genitourinary: ABSENT: dysuria, hematuria Musculoskeletal: ABSENT: back pain, joint swelling Integumentary: ABSENT: pruritus, rash Neurological: ABSENT: confusion, convulsions, focal weakness, memory loss, syncope Psychiatric: ABSENT: anxiety, hallucinations Endocrine: ABSENT: cold intolerance, heat intolerance Hematologic/Lymphatic: ABSENT: easy bleeding, easy bruising Allergic/Immunologic: ABSENT: seasonal rhinorrhea Physical Exam Vital Signs: Temp Pulse Resp BP Pulse Ox 98.4 F 22 H 98 02/03/20 20:21 02/04/20 00:00 02/04/20 00:00 Intake & Output 02/02/20 02/03/20 02/04/20 23:59 23:59 23:59 Weight 115.212 kg General appearance: PRESENT: cooperative, mild distress - Secondary to nausea, obese Head exam: PRESENT: atraumatic, normocephalic Eye exam: PRESENT: conjunctiva pink. ABSENT: conjunctival injection, scleral icterus Ear exam: PRESENT: normal external ear exam. ABSENT: bleeding, drainage Mouth exam: PRESENT: dry mucosa, neck supple Neck exam: PRESENT: thyromegaly - Minimally enlarged diffuse nodular goiter. ABSENT: tracheal deviation Respiratory exam: PRESENT: clear to auscultation sayda, symmetrical, unlabored Cardiovascular exam: PRESENT: irregular rhythm - Irregularly irregular rate and rhythm. ABSENT: clicks, gallop, rubs Pulses: PRESENT: normal radial pulses, normal dorsalis pedis pul Vascular exam: PRESENT: normal capillary refill. ABSENT: pallor GI/Abdominal exam: PRESENT: normal bowel sounds, soft. ABSENT: tenderness Rectal exam: PRESENT: deferred Extremities exam: ABSENT: joint swelling, pedal edema Musculoskeletal exam: ABSENT: deformity, dislocation Neurological exam: PRESENT: alert, oriented to person, oriented to place, oriented to time, oriented to situation, CN II-XII grossly intact. ABSENT: motor sensory deficit Psychiatric exam: PRESENT: appropriate affect, normal mood Skin exam: PRESENT: dry, intact, warm. ABSENT: jaundice, rash, urticaria Results Laboratory Results: 02/03/20 22:13 02/03/20 22:13 02/03/20 02/03/20 02/03/20 22:13 22:13 22:13 WBC 8.7 RBC 4.67 Hgb 12.7 Hct 36.1 MCV 77 L MCH 27.1 MCHC 35.0 RDW 15.2 H Plt Count 272 Seg Neutrophils % 61.5 Sodium 137.7 Potassium 3.7 Chloride 92 L Carbon Dioxide 26 Anion Gap 20 H BUN 29 H Creatinine 1.52 H Est GFR ( Amer) 41 L Glucose 99 Calcium 10.3 H Magnesium 1.7 Total Bilirubin 0.8 AST 32 Alkaline Phosphatase 76 Total Protein 8.1 Albumin 4.4 TSH < 0.01 L Free T4 3.34 H Free T3 pg/mL 6.10 H Urine Color Urine Appearance Urine pH Ur Specific [place] Urine Protein Urine Glucose (UA) Urine Ketones Urine Blood Urine Nitrite Ur Leukocyte Esterase Urine WBC (Auto) Urine RBC (Auto) 02/03/20 22:13 WBC RBC Hgb Hct MCV MCH MCHC RDW Plt Count Seg Neutrophils % Sodium Potassium Chloride Carbon Dioxide Anion Gap BUN Creatinine Est GFR ( Amer) Glucose Calcium Magnesium Total Bilirubin AST Alkaline Phosphatase Total Protein Albumin TSH Free T4 Free T3 pg/mL Urine Color YELLOW Urine Appearance CLOUDY Urine pH 6.0 Ur Specific [place] 1.011 Urine Protein 30 H Urine Glucose (UA) NEGATIVE Urine Ketones 20 H Urine Blood SMALL H Urine Nitrite NEGATIVE Ur Leukocyte Esterase LARGE H Urine WBC (Auto) >182 Urine RBC (Auto) 57 02/03/20 22:13 Troponin I 0.044 NT-Pro-B Natriuret Pep 1350 H Impressions: Chest X-Ray 02/03/20 20:45 IMPRESSION: No acute disease. copyright 2010 [employer]- All Rights Reserved Assessment and Plan - Diagnosis (1) Nausea and vomiting Qualifiers: Vomiting type: unspecified Vomiting Intractability: intractable Qualified Code(s): R11.2 - Nausea with vomiting, unspecified Is this a current diagnosis for this admission?: Yes (2) Hyperthyroidism Is this a current diagnosis for this admission?: Yes (3) Atrial fibrillation Qualifiers: Atrial fibrillation type: persistent (not longstanding) Qualified Code(s): I48.19 - Other persistent atrial fibrillation; I48.1 - Persistent atrial fibrillation Is this a current diagnosis for this admission?: Yes (4) Hypertension Qualifiers: Hypertension type: unspecified Qualified Code(s): I10 - Essential (primary) hypertension Is this a current diagnosis for this admission?: Yes (5) Hyperlipidemia Qualifiers: Hyperlipidemia type: unspecified Qualified Code(s): E78.5 - Hyperlipidemia, unspecified Is this a current diagnosis for this admission?: Yes - Plan Summary Summary: Patient will be admitted to the medical floor in a telemetry bed where she will receive routine supportive and symptomatic cares. She will receive IV fluids utilizing D5LR at 167 mL/h. Serial metabolic profiles will be obtained to closely monitor her renal and electrolyte status. She will receive morphine sulfate 2 to 4 mg IV every 2 hours as needed for pain. She will receive Ativan 1 mg IV every 4 hours as needed for anxiety or restlessness. She will be placed on a cardiac diet as tolerated. Additional laboratory and/or radiographic evaluations be obtained as needed. - Time Time Spent with patient: 15-24 minutes Medications reviewed and adjusted accordingly: Yes Anticipated Discharge Disposition: Home, Self Care Anticipated Discharge Timeframe: within 72 hours - Inpatient Certification Based on my medical assessment, after consideration of the patient's comorbidities, presenting symptoms, or acuity I expect that the services needed warrant INPATIENT care.: Yes I certify that my determination is in accordance with my understanding of Medicare's requirements for reasonable and necessary INPATIENT services [42 CFR 412.3e].: Yes Medical Necessity: Need Close Monitoring Due to Risk of Patient Decompensation, Need For IV Fluids, Need For Continuous Telemetry Monitoring
[2020-02-04] MEDS ORDERED: METHIMAZOLE 5 MG TABLET PO SCH (06:00)
[2020-02-04] MEDS ORDERED: HEPARIN SOD (PORCINE) 5,000 UNIT/ML 1 ML VIAL SUBCUT SCH (06:00)
[2020-02-04 07:40] LABS: ANION GAP 10 (5-19); BLOOD UREA NITROGEN 28 mg/dL (7-20); CALCIUM 9.3 mg/dL (8.4-10.2); CARBON DIOXIDE 29 mmol/L (22-30); CHLORIDE 98 mmol/L (98-107); GLUCOSE 112 mg/dL (75-110); POTASSIUM 3.2 mmol/L (3.6-5.0)
[2020-02-04] MEDS ORDERED: POTASSIUM CHLORIDE 20 MEQ PACKET PO ONE (08:30)
[2020-02-04] MEDS: METHIMAZOLE 5 MG TABLET PO SCH (09:48)
[2020-02-04] MEDS: POTASSI CL 40 MEQ/NS 1L 1,000 ML IV PRN ×2 (09:50→22:39)
[2020-02-04] MEDS: MAGNESIUM OXIDE 400 MG TABLET PO SCH ×3 (09:52→18:06)
[2020-02-04] MEDS ORDERED: PANTOPRAZOLE SODIUM 40 MG VIAL IV SCH (10:00)
[2020-02-04] MEDS ORDERED: DOCUSATE SODIUM 100 MG/10 ML UDC PO SCH (10:00)
[2020-02-04] MEDS ORDERED: METOPROLOL SUCCINATE 50 MG TAB.SR.24H PO SCH (10:00)
--- NOTE | 2020-02-04 10:55 | PDOC PROGRESS REPORT ---
Subjective Progress Note for:: 02/04/20 Subjective:: Patient complains of her "stomach feeling weak" with associated nausea, and anorexia. She also reports "thick and heavy spit" that she has been spitting up as she is afraid she will choke if she swallows it. Denies difficulty or pain with swallowing. She also notes SOB on exertion with associated generalized weakness. Otherwise denies CP, palpitations, or cough. Most recent episode of diarrhea or emesis x1 day ago. Reason For Visit: NAUSE AND VOMITING,GENERALIZED WEAKNESS,ACUTE Physical Exam Vital Signs: Temp Pulse Resp BP Pulse Ox 98.7 F 76 16 133/58 H 96 02/04/20 07:39 02/04/20 07:39 02/04/20 07:39 02/04/20 07:39 02/04/20 07:39 Intake & Output 02/03/20 02/04/20 02/05/20 06:59 06:59 06:59 Weight 99.9 kg General appearance: PRESENT: cooperative, mild distress - Secondary to SOB., obese Head exam: PRESENT: atraumatic, normocephalic Eye exam: PRESENT: EOMI, PERRLA. ABSENT: scleral icterus Ear exam: PRESENT: normal external ear exam. ABSENT: bleeding, drainage Mouth exam: PRESENT: moist, tongue midline Throat exam: PRESENT: post pharyngeal erythema Neck exam: PRESENT: full ROM, thyromegaly - Minimally enlarged diffuse nodular goiter.. ABSENT: tenderness, tracheal deviation Respiratory exam: PRESENT: clear to auscultation sayda, symmetrical, unlabored. ABSENT: crackles, decreased breath sounds, rales, rhonchi Cardiovascular exam: PRESENT: irregular rhythm - Irregularly irregular rate and rhythm., tachycardia. ABSENT: clicks, gallop GI/Abdominal exam: PRESENT: normal bowel sounds. ABSENT: tenderness Rectal exam: PRESENT: deferred Extremities exam: ABSENT: joint swelling, pedal edema Musculoskeletal exam: PRESENT: ambulatory - With assistance of walker.. ABSENT: deformity, dislocation Neurological exam: PRESENT: alert, awake, oriented to person, oriented to place, oriented to time, oriented to situation, CN II-XII grossly intact. ABSENT: motor sensory deficit Psychiatric exam: PRESENT: appropriate affect, normal mood Skin exam: PRESENT: dry, intact, warm. ABSENT: erythema, urticaria Results Laboratory Results: 02/03/20 22:13 02/04/20 07:13 02/03/20 02/03/20 02/03/20 22:13 22:13 22:13 WBC 8.7 RBC 4.67 Hgb 12.7 Hct 36.1 MCV 77 L MCH 27.1 MCHC 35.0 RDW 15.2 H Plt Count 272 Seg Neutrophils % 61.5 Sodium 137.7 Potassium 3.7 Chloride 92 L Carbon Dioxide 26 Anion Gap 20 H BUN 29 H Creatinine 1.52 H Est GFR ( Amer) 41 L Glucose 99 Lactic Acid Calcium 10.3 H Magnesium 1.7 Total Bilirubin 0.8 AST 32 Alkaline Phosphatase 76 Total Protein 8.1 Albumin 4.4 TSH < 0.01 L Free T4 3.34 H Free T3 pg/mL 6.10 H Urine Color Urine Appearance Urine pH Ur Specific [place] Urine Protein Urine Glucose (UA) Urine Ketones Urine Blood Urine Nitrite Ur Leukocyte Esterase Urine WBC (Auto) Urine RBC (Auto) 02/03/20 02/04/20 02/04/20 22:13 03:05 07:13 WBC RBC Hgb Hct MCV MCH MCHC RDW Plt Count Seg Neutrophils % Sodium Potassium Chloride Carbon Dioxide Anion Gap BUN Creatinine Est GFR ( Amer) Glucose Lactic Acid 1.3 1.1 Calcium Magnesium Total Bilirubin AST Alkaline Phosphatase Total Protein Albumin TSH Free T4 Free T3 pg/mL Urine Color YELLOW Urine Appearance CLOUDY Urine pH 6.0 Ur Specific [place] 1.011 Urine Protein 30 H Urine Glucose (UA) NEGATIVE Urine Ketones 20 H Urine Blood SMALL H Urine Nitrite NEGATIVE Ur Leukocyte Esterase LARGE H Urine WBC (Auto) >182 Urine RBC (Auto) 57 02/04/20 07:13 WBC RBC Hgb Hct MCV MCH MCHC RDW Plt Count Seg Neutrophils % Sodium 136.7 L Potassium 3.2 L Chloride 98 Carbon Dioxide 29 Anion Gap 10 BUN 28 H Creatinine 1.12 Est GFR ( Amer) 59 L Glucose 112 H Lactic Acid Calcium 9.3 Magnesium 1.5 L Total Bilirubin AST Alkaline Phosphatase Total Protein Albumin TSH Free T4 Free T3 pg/mL Urine Color Urine Appearance Urine pH Ur Specific [place] Urine Protein Urine Glucose (UA) Urine Ketones Urine Blood Urine Nitrite Ur Leukocyte Esterase Urine WBC (Auto) Urine RBC (Auto) 02/03/20 22:13 Troponin I 0.044 NT-Pro-B Natriuret Pep 1350 H Impressions: Chest X-Ray 02/03/20 20:45 IMPRESSION: No acute disease. copyright 2010 [employer]- All Rights Reserved Assessment and Plan - Diagnosis (1) Nausea and vomiting Qualifiers: Vomiting type: unspecified Vomiting Intractability: intractable Qualified Code(s): R11.2 - Nausea with vomiting, unspecified Is this a current diagnosis for this admission?: Yes (2) Atrial fibrillation with rapid ventricular response Is this a current diagnosis for this admission?: Yes (3) Hyperthyroidism Is this a current diagnosis for this admission?: Yes (4) Hypokalemia Is this a current diagnosis for this admission?: Yes (5) Hypomagnesemia Is this a current diagnosis for this admission?: Yes (6) Hyperlipidemia Qualifiers: Hyperlipidemia type: unspecified Qualified Code(s): E78.5 - Hyperlipidemia, unspecified Is this a current diagnosis for this admission?: Yes (7) Hypertension Qualifiers: Hypertension type: unspecified Qualified Code(s): I10 - Essential (primary) hypertension Is this a current diagnosis for this admission?: Yes - Plan Summary Summary: Ms. Barbara Rucker is a 64 year old female with past medical history of AFRVR likely secondary to newly diagnosed hyperthyroidism. Patient records reviewed noting recent admission to inpatient services on 01/24/2020 where she was found to be in AFRVR with undetectable thyroid levels and significantly elevated FT4 and FT3. During this previous hospitalization a full thyroid work up was completed including: Thyrotropin antibody (pending) and thyroid US (multinodular goiter with largest measure <16mm). At discharge she was started on low-dose methimazole and beta-aniceto therapy and advised on close follow up with PCP with potential for iodine uptake study. Her AFRVR was converted to NSR with ditalizem drip with subsequent treatment of beta-aniceto. Further cardiac work up completed including TTE showing normal LV ejection fraction with no wall abnormalities. She was sequentially scheduled for cardiac stress test on 02/07/[address] Cespedes in the outpatient setting. Today patient presented to the ED c/o 10 day hx of anorexia, progressive generalized weakness, nausea, vomiting and diarrhea. In the ED she was found to be in AFRVR with elevated serum creatinine levels. IV fluids initiated and she was subsequential admitted to inpatient treatment services for further evaluation and treatment. Nausea and vomiting: Vomiting resolved though she continues to complain of nausea. History and PE findings significant for frequent clearing of throat with associated thick saliva and erythematous pharynx. Suspect this may be secondary to GERD. -Initiate H2-blockade therapy with Famotidine. -Phenergan to be utilized prn -Encouraged increasing oral liquid intake Atrial fibrillation with rapid ventricular response: Likely secondary to hyperthyroidism diagnosis. Per pt's monitor her heart rate has been ranging from the upper 90s to low 110s. There was a noted spike in her heart rate to 150, this was after she was exerting herself walking from the restroom to the bed. She was notably tachypneic at this time. -Home dose of Metoprolol (25mg) does not appear to be controlling HR, will increase at this time. -Consider continued increase in dosage pending HR control. -Continue to monitor heart rate. -Continue anticoagulation with Xarelto. Hyperthyroidism: TSH level remains undetectable though noted improvement in both FT4 (3.34) and FT3 (6.10) from previous admission. I engaged patient in an informative conversation regarding her current symptoms and diagnosis. Patient was informed that though she is receiving appropriate management for her symptoms, symptomatic relief may not be accomplished until up to 8 weeks of pharmacological treatment. We further discussed the need for close outpatient follow up with PCP for further workup. She expresses agreement and understanding. -Continue Methimazole 2.5mg PO daily -Continue Metoprolol -Thyrotropin antibody pending -I do believe her generalized weakness is secondary to hyperthyroidism. PT c onsulted for evaluation. Consider home health PT upon discharge. -Consider transition lead upon discharge to aid in patient care following disposition. Mild Hypokalemia and Hypomagnesemia: Likely due to vomiting and diarrhea. -Continue to replace electrolytes. -Continue to monitor closely with correction as to avoid onset of arrhythmia. Hyperlipidemia: -Continue with statin therapy. Hypertension: BP within normal limits -Continue to monitor -Treatment as above. - Time Time Spent with patient: 25-34 minutes Medications reviewed and adjusted accordingly: Yes Anticipated Discharge Disposition: Home with Home Health - PT home health Anticipated Discharge Timeframe: within 24 hours
[2020-02-04] MEDS: FAMOTIDINE 20 MG TABLET PO SCH ×2 (11:39→21:24)
[2020-02-04] MEDS: METOPROLOL TARTRATE PF/INJ 5 MG/5 ML SDV IV ONE ×3 (14:16→21:35)
[2020-02-04] MEDS ORDERED: METOPROLOL SUCCINATE 50 MG TAB.SR.24H PO ONE (14:30)
[2020-02-04] MEDS ORDERED: LOPERAMIDE HCL 2 MG CAPSULE PO PRN (16:15)
[2020-02-04] MEDS ORDERED: ONDANSETRON HCL INJ/PF 4 MG/2 ML SDV IV PRN (16:15)
[2020-02-04] MEDS ORDERED: RIVAROXABAN 10 MG TABLET PO SCH (17:00)
[2020-02-05 07:13] LABS: BLOOD UREA NITROGEN 18 mg/dL (7-20); CALCIUM 9.2 mg/dL (8.4-10.2); GLUCOSE 90 mg/dL (75-110)
[2020-02-05 07:14] LABS: ANION GAP 6 (5-19); CARBON DIOXIDE 27 mmol/L (22-30); CHLORIDE 105 mmol/L (98-107)
[2020-02-05 08:01] LABS: HEMATOCRIT 30.6 % (36.0-47.0); MEAN CORPUSCULAR HEMOGLOBIN 25.3 pg (27.0-33.4); MEAN CORPUSCULAR VOLUME 77 fl (80-97); PLATELET COUNT 172 10^3/uL (150-450); RED CELL DISTRIBUTION WIDTH 15.5 % (11.5-14.0); WHITE BLOOD COUNT 4.7 10^3/uL (4.0-10.5)
[2020-02-05 08:08] LABS: HEMOGLOBIN 10.1 g/dL (12.0-15.5)
[2020-02-05] MEDS ORDERED: MAGNESIUM SULFATE 4 GM/100 ML RTUPB IV ONE (09:30)
[2020-02-05] MEDS: METHIMAZOLE 5 MG TABLET PO SCH (09:50)
[2020-02-05] MEDS: FAMOTIDINE 20 MG TABLET PO SCH (09:50)
[2020-02-05] MEDS: MAGNESIUM OXIDE 400 MG TABLET PO SCH ×2 (09:50→12:18)
[2020-02-05] MEDS ORDERED: POTASSIUM CHLORIDE 10 MEQ TABLET.ER PO SCH (10:00)
[2020-02-05] MEDS ORDERED: METOPROLOL SUCCINATE 50 MG TAB.SR.24H PO SCH (10:00)
[2020-02-05 13:59] VITALS: BP 99/51
--- NOTE | 2020-02-05 14:11 | PDOC DISCHARGE SUMMARY ---
Impression - Admit/DC Date/PCP Admission Date/Primary Care Provider: 02/04/20 00:58 MICKEY RYDER MD Discharge Date: 02/05/20 - Discharge Diagnosis (1) Nausea and vomiting Is this a current diagnosis for this admission?: Yes (2) Atrial fibrillation with rapid ventricular response Is this a current diagnosis for this admission?: Yes (3) Hyperthyroidism Is this a current diagnosis for this admission?: Yes (4) Elevated troponin I level Is this a current diagnosis for this admission?: Yes (5) Hypokalemia Is this a current diagnosis for this admission?: Yes (6) Hypomagnesemia Is this a current diagnosis for this admission?: Yes (7) Hyperlipidemia Is this a current diagnosis for this admission?: Yes (8) Hypertension Is this a current diagnosis for this admission?: Yes - Assessment Summary: Ms. Benito Rucker is a 64 year old female with past medical history of AFRVR likely secondary to newly diagnosed hyperthyroidism. Patient records reviewed noting recent admission to inpatient services on 01/24/2020 where she was found to be in AFRVR with undetectable thyroid levels and significantly elevated FT4 and FT3. During this previous hospitalization a full thyroid work up was completed including: Thyrotropin antibody (pending) and thyroid US (multinodular goiter with largest measure <16mm). At discharge she was started on low-dose methimazole and beta-aniceto therapy and advised on close follow up with PCP with potential for iodine uptake study. Her AFRVR was converted to NSR with ditalizem drip with subsequent treatment of beta-aniceto. Further cardiac work up completed including TTE showing normal LV ejection fraction with no wall abnormalities. She was sequentially scheduled for cardiac stress test on 02/07/[address] Cespedes in the outpatient setting. On 02/03/2020 patient returned to the ED with concerns regarding anorexia, progressive generalized weakness, nausea, vomiting and diarrhea. In the ED she was found to be in AFRVR with elevated serum creatinine levels. IV fluids initiated and she was subsequential admitted to inpatient treatment services for further evaluation and treatment. Nausea and vomiting: Nausea and vomiting have resolved. Provided patient with prescriptions for Zofran prn and loperamide prn. Her history and PE findings were significant for frequent clearing of throat with associated thick saliva and erythematous pharynx lead me to suspect symptoms are secondary to GERD. Symptomatic treatment with H2-blockade was initiated during hospitalization with noted improvement in symptoms. Recommend continued H2-blockade therapy at home with Famotidine. Hyperthyroidism: TSH level remains undetectable though noted improvement in both FT4 (3.34) and FT3 (6.10) from previous admission. Patient was assessed by physical therapy, recommend attention from skilled physical therapy 1-2 days/week. A track coach has been assigned to patient to assist in patient care following disposition. Methimazole dose increased. Again engaged patient in an informative conversation regarding her current symptoms and diagnosis. Patient informed that though she is receiving appropriate management for her symptoms, symptomatic relief may not be accomplished until up to 8 weeks of pharmacological treatment. I emphasized the need for close outpatient follow up with PCP for further workup including an uptake study. She expresses agreement and understanding. Atrial fibrillation with rapid ventricular response: Atrial fibrillation is likely secondary to new diagnosis of hyperthyroidism. Increased Metoprolol dose for appropriate management of Afib. She is to continue with anticoagulation with Xarelto. Elevated Troponin: Patient was noted to have elevated troponin levels without clear trend and without ischemic symptoms. EKG negative for ischemic changes. Cardiology was consulted, suspect elevated troponin secondary to atrial fibrillation and hyperthyroid state. Patient is scheduled for outpatient cardiac stress test with Dr. Cespedes on 02/07/2020. Hypertension: Over the course of current admission patient's BP was consistently in the 110-120/50-60s without pharmacological treatment. Home medications were reviewed with the patient. Her current at home HTN treatment regimen includes amlodipine, Losartan, furosemide and Hydrochlorothiazide. Suspect current symptoms may be secondary to extensive pharmacological management of HTN. Home blood pressure medications discontinued. Mild Hypokalemia and Hypomagnesemia: Likely due to vomiting and diarrhea in the setting of hyperthyroidism, though could be secondary to pharmacologically induced dehydration as she was prescribed multiple diuretics. Electrolytes were repleted. She is to continue with potassium and magnesium supplementation at home. Hyperlipidemia: Continue with Statin therapy. - Additional Information Resuscitation Status: Full Code Referrals: MICKEY RYDER MD [Primary Care Provider] - Follow up as needed Prescriptions: Loperamide HCl [Imodium 2 mg Capsule] 2 mg PO Q6HP PRN #30 capsule PRN Reason: Potassium Chloride [Klor-Con 10 Meq Tablet ER] 10 meq PO BID #60 tablet.er Famotidine [Pepcid 20 mg Tablet] 20 mg PO Q12 #60 tablet Methimazole [Tapazole] 10 mg PO DAILY #30 tablet Metoprolol Succinate [Toprol Xl] 100 mg PO DAILY #30 tab.er.24h Rivaroxaban [Xarelto] 20 mg PO DAILY #30 tablet Ondansetron [Zofran Odt 4 mg Tablet] 4 mg PO Q4HP PRN #30 tab.rapdis PRN Reason: Home Medications: Atorvastatin Calcium [Lipitor 20 mg Tablet] 20 mg PO QHS 01/24/20 Cholecalciferol (Vitamin D3) [Vitamin D3 1000 Unit Tablet] 1,000 unit PO DAILY 01/24/20 Multivitamin [Tab-A-Pilar (Multiple Vitamin) Tablet] 1 tab PO DAILY 01/24/20 Magnesium Oxide 400 mg PO QHS 02/04/20 Meloxicam [Mobic] 15 mg PO DAILYP PRN 02/04/20 Famotidine [Pepcid 20 mg Tablet] 20 mg PO Q12 #60 tablet 02/05/20 Loperamide HCl [Imodium 2 mg Capsule] 2 mg PO Q6HP PRN #30 capsule 02/05/20 Methimazole [Tapazole] 10 mg PO DAILY #30 tablet 02/05/20 Metoprolol Succinate [Toprol Xl] 100 mg PO DAILY #30 tab.er.24h 02/05/20 Ondansetron [Zofran Odt 4 mg Tablet] 4 mg PO Q4HP PRN #30 tab.rapdis 02/05/20 Potassium Chloride [Klor-Con 10 Meq Tablet ER] 10 meq PO BID #60 tablet.er 02/05/20 Rivaroxaban [Xarelto] 20 mg PO DAILY #30 tablet 02/05/20 History of Present Illiness History of Present Illness: BENITO RUCKER is a 64 year old female Physical Exam Vital Signs: Temp Pulse Resp BP Pulse Ox 97.8 F 65 17 124/70 97 02/05/20 10:00 02/05/20 07:00 02/05/20 04:24 02/05/20 04:24 02/05/20 04:24 Intake & Output 02/04/20 02/05/20 02/06/20 06:59 06:59 06:59 Intake Total 1510 648 Balance 1510 648 Weight 99.9 kg 98.1 kg General appearance: PRESENT: no acute distress, cooperative, obese Head exam: PRESENT: atraumatic, normocephalic Eye exam: PRESENT: EOMI, PERRLA. ABSENT: scleral icterus Ear exam: PRESENT: normal external ear exam. ABSENT: bleeding, drainage Mouth exam: PRESENT: moist, tongue midline Neck exam: PRESENT: full ROM, thyromegaly. ABSENT: JVD, lymphadenopathy, tenderness Respiratory exam: PRESENT: clear to auscultation sayda, symmetrical, unlabored. ABSENT: crackles, tachypnea, wheezes Cardiovascular exam: PRESENT: irregular rhythm. ABSENT: diastolic murmur, systolic murmur GI/Abdominal exam: PRESENT: normal bowel sounds, soft. ABSENT: ascites, firm, guarding, tenderness Rectal exam: PRESENT: deferred Extremities exam: PRESENT: full ROM. ABSENT: calf tenderness, clubbing, pedal edema Musculoskeletal exam: PRESENT: ambulatory. ABSENT: deformity, dislocation, tenderness Neurological exam: PRESENT: alert, awake, oriented to person, oriented to place, oriented to time, oriented to situation, CN II-XII grossly intact Psychiatric exam: PRESENT: appropriate affect, normal mood Skin exam: PRESENT: dry, intact, normal color, warm. ABSENT: erythema, petechiae Results Laboratory Results: WBC 4.7 10^3/uL (4.0-10.5) 02/05/20 06:23 RBC 4.00 10^6/uL (3.72-5.28) 02/05/20 06:23 Hgb 10.1 g/dL (12.0-15.5) L D 02/05/20 06:23 Hct 30.6 % (36.0-47.0) L 02/05/20 06:23 MCV 77 fl (80-97) L 02/05/20 06:23 MCH 25.3 pg (27.0-33.4) L 02/05/20 06:23 MCHC 33.0 g/dL (32.0-36.0) 02/05/20 06:23 RDW 15.5 % (11.5-14.0) H 02/05/20 06:23 Plt Count 172 10^3/uL (150-450) 02/05/20 06:23 Lymph % (Auto) 30.5 % (13-45) 02/03/20 22:13 [place] % (Auto) 6.5 % (3-13) 02/03/20 22:13 Eos % (Auto) 0.5 % (0-6) 02/03/20 22:13 Baso % (Auto) 1.0 % (0-2) 02/03/20 22:13 Absolute Neuts (auto) 5.4 10^3/uL (1.7-8.2) 02/03/20 22:13 Absolute Lymphs (auto) 2.7 10^3/uL (0.5-4.7) 02/03/20 22:13 Absolute Monos (auto) 0.6 10^3/uL (0.1-1.4) 02/03/20 22:13 Absolute Eos (auto) 0.0 10^3/uL (0.0-0.6) 02/03/20 22:13 Absolute Basos (auto) 0.1 10^3/uL (0.0-0.2) 02/03/20 22:13 Seg Neutrophils % 61.5 % (42-78) 02/03/20 22:13 Sodium 138.3 mmol/L (137-145) 02/05/20 06:23 Potassium 4.0 mmol/L (3.6-5.0) 02/05/20 06:23 Chloride 105 mmol/L (98-107) 02/05/20 06:23 Carbon Dioxide 27 mmol/L (22-30) 02/05/20 06:23 Anion Gap 6 (5-19) 02/05/20 06:23 BUN 18 mg/dL (7-20) 02/05/20 06:23 Creatinine 0.86 mg/dL (0.52-1.25) 02/05/20 06:23 Est GFR ( Amer) > 60 (>60) 02/05/20 06:23 Est GFR (MDRD) Non-Af > 60 (>60) 02/05/20 06:23 Glucose 90 mg/dL (75-110) 02/05/20 06:23 Lactic Acid 1.1 mmol/L (0.7-2.1) 02/04/20 07:13 Calcium 9.2 mg/dL (8.4-10.2) 02/05/20 06:23 Magnesium 1.6 mg/dL (1.6-2.3) 02/05/20 06:23 Total Bilirubin 0.8 mg/dL (0.2-1.3) 02/03/20 22:13 Direct Bilirubin 0.5 mg/dL (0.0-0.4) H 02/03/20 22:13 Neonat Total Bilirubin Not Reportable 02/03/20 22:13 Neonat Direct Bilirubin Not Reportable 02/03/20 22:13 Neonat Indirect Bili Not Reportable 02/03/20 22:13 AST 32 U/L (14-36) 02/03/20 22:13 ALT 17 U/L (<35) 02/03/20 22:13 Alkaline Phosphatase 76 U/L (38-126) 02/03/20 22:13 Troponin I 0.048 ng/mL 02/05/20 10:00 NT-Pro-B Natriuret Pep 1350 pg/mL (<125) H 02/03/20 22:13 Total Protein 8.1 g/dL (6.3-8.2) 02/03/20 22:13 Albumin 4.4 g/dL (3.5-5.0) 02/03/20 22:13 TSH < 0.01 uIU/mL (0.47-4.68) L 02/03/20 22:13 Free T4 3.34 ng/dL (0.78-2.19) H 02/03/20 22:13 Free T3 pg/mL 6.10 pg/mL (2.77-5.27) H 02/03/20 22:13 Urine Color YELLOW 02/03/20 22:13 Urine Appearance CLOUDY 02/03/20 22:13 Urine pH 6.0 (5.0-9.0) 02/03/20 22:13 Ur Specific Caroline 1.011 02/03/20 22:13 Urine Protein 30 mg/dL (NEGATIVE) H 02/03/20 22:13 Urine Glucose (UA) NEGATIVE mg/dL (NEGATIVE) 02/03/20 22:13 Urine Ketones 20 mg/dL (NEGATIVE) H 02/03/20 22:13 Urine Blood SMALL (NEGATIVE) H 02/03/20 22:13 Urine Nitrite NEGATIVE (NEGATIVE) 02/03/20 22:13 Urine Bilirubin NEGATIVE (NEGATIVE) 02/03/20 22:13 Urine Urobilinogen NEGATIVE mg/dL (<2.0) 02/03/20 22:13 Ur Leukocyte Esterase LARGE (NEGATIVE) H 02/03/20 22:13 Urine WBC (Auto) >182 /HPF 02/03/20 22:13 Urine RBC (Auto) 57 /HPF 02/03/20 22:13 U Hyaline Cast (Auto) 18 /LPF 02/03/20 22:13 Urine Bacteria (Auto) TRACE /HPF 02/03/20 22:13 Urine WBC Clumps FEW /HPF 02/03/20 22:13 Squamous Epi Cells Auto 3 /HPF 02/03/20 22:13 Urine Mucus (Auto) RARE /LPF 02/03/20 22:13 Urine Ascorbic Acid NEGATIVE (NEGATIVE) 02/03/20 22:13 02/03/20 02/05/20 22:13 10:00 Troponin I 0.044 0.048 NT-Pro-B Natriuret Pep 1350 H EKG Comments: Atrial Fibrillation with ventricular rate in the 89-150s. Impressions: Chest X-Ray 02/03/20 20:45 IMPRESSION: No acute disease. copyright 2011 [employer]- All Rights Reserved Plan Health Concerns: AfibRVR, risk of stroke. Time Spent: Greater than 30 Minutes Stroke Is this a Stroke Patient?: No Acute Heart Failure Is this a Heart Failure Patient?: No
--- NOTE | 2020-02-05 14:44 | PDOC CONSULTATION ---
Consultation Consult Date: 02/05/20 Provider Consulted: CAROLYN BARRAGAN Consult reason:: Elevated troponin History of Present Illness Admission Date/PCP: 02/04/20 00:58 MICKEY RYDER MD Patient complains of: Nausea History of Present Illness: BENITO CUENCA is a 64 year old female With the following active problems 1. Hypothyroidism 2. Systemic hypertension 3. Dyslipidemia 4. Systemic anticoagulation-rivaroxaban 5. Atrial fibrillation 64-year-old lady who was admitted to the hospital with upper GI complaints including nausea and vomiting. She is reported to have hyperthyroidism, dyslipidemia and atrial fibrillation. She is presently anticoagulated and her rate is controlled. Patient does not report any chest pain or dyspnea. I was asked to evaluate the patient since her troponin was mildly elevated. Review of systems is negative for chest pain or dyspnea. Positive for nausea and vomiting. This is resolved. Full 11 review systems was asked. Pertinent positives noted here and in the HPI all other systems are negative Patient does not work presently No substance abuse reported. Patient does not smoke cigarettes No familial illnesses reported. Past Medical History Cardiac Medical History: Reports: Atrial Fibrillation, Hyperlipidema, Hypertension Denies: Congestive Heart Failure, Coronary Artery Disease, DVT, Myocardial Infarction, Pulmonary Embolism Pulmonary Medical History: Denies: Asthma, Bronchitis, Chronic Obstructive Pulmonary Disease (COPD), Pneumonia EENT Medical History: Denies: Cataracts, Ears Neurological Medical History: Denies: Hemorrhagic CVA, Ischemic CVA, Seizures Endocrine Medical History: Reports: Hyperthyroidism, Obesity Denies: Diabetes Mellitus Type 1, Diabetes Mellitus Type 2, Hypothyroidism Renal/ Medical History: Denies: Chronic Kidney Disease, Nephrolithiasis Malignancy Medical History: Reports: None GI Medical History: Denies: Cirrhosis, Crohn's Disease, Gastroesophageal Reflux Disease, Hepatitis, Ulcerative Colitis Musculoskeltal Medical History: Denies: Arthritis, Fibromyalgia Skin Medical History: Denies: Eczema, Psoriasis Psychiatric Medical History: Denies: Alcohol Dependency, Depression, Substance Abuse, Tobacco Dependency Traumatic Medical History: Reports: None Hematology: Denies: Anemia, Bleeding Tendencies Infectious Medical History: Reports: None Past Surgical History Past Surgical History: Reports: Section, Orthopedic Surgery - Right total knee arthroplasty Social History Lives with: Family Smoking Status: Never Smoker Electronic Cigarette use?: No Frequency of Alcohol Use: None Hx Recreational Drug Use: No Drugs: None Hx Prescription Drug Abuse: No - Advance Directive Resuscitation Status: Full Code Family History Family History: Hypertension, Other - asthma Parental Family History Reviewed: Yes - No familial illnesses Children Family History Reviewed: NA Sibling(s) Family History Reviewed.: NA Medication/Allergy Home Medications: Hydrochlorothiazide 12.5 mg PO DAILY 08/03/19 Atorvastatin Calcium [Lipitor 20 mg Tablet] 20 mg PO QHS 01/24/20 Cholecalciferol (Vitamin D3) [Vitamin D3 1000 Unit Tablet] 1,000 unit PO DAILY 01/24/20 Losartan Potassium 100 mg PO DAILY 01/24/20 Multivitamin [Tab-A-Pilar (Multiple Vitamin) Tablet] 1 tab PO DAILY 01/24/20 Methimazole [Tapazole 5 mg Tablet] 2.5 mg PO DAILY #30 tablet 01/25/20 Metoprolol Tartrate [Lopressor 25 mg Tablet] 25 mg PO Q12 #30 tablet 01/25/20 Amlodipine Besylate [Norvasc 10 mg Tablet] 10 mg PO DAILY 02/04/20 Furosemide [Lasix] 40 mg PO DAILY 02/04/20 Magnesium Oxide 400 mg PO QHS 02/04/20 Meloxicam [Mobic] 15 mg PO DAILYP PRN 02/04/20 Rivaroxaban [Xarelto 10 mg Tablet] 10 mg PO DAILY 02/04/20 Allergies/Adverse Reactions: No Known Allergies Allergy (Verified 01/23/20 19:26) Review of Systems Constitutional: PRESENT: as per HPI Eyes: PRESENT: as per HPI Ears: PRESENT: as per HPI Breasts: ABSENT: as per HPI, other Cardiovascular: ABSENT: as per HPI, chest pain, dyspnea on exertion, edema, or thropnea, palpitations, other Gastrointestinal: PRESENT: bloating, nausea, vomiting Physical Exam Vital Signs: Temp Pulse Resp BP Pulse Ox 98.5 F 59 L 18 110/56 L 98 02/05/20 12:19 02/05/20 12:19 02/05/20 12:19 02/05/20 12:19 02/05/20 12:19 Intake & Output 02/04/20 02/05/20 02/06/20 06:59 06:59 06:59 Intake Total 1510 648 Balance 1510 648 Weight 99.9 kg 98.1 kg 98.1 kg General appearance: PRESENT: no acute distress, cooperative, well-developed, well-nourished Head exam: PRESENT: atraumatic, normocephalic Eye exam: PRESENT: EOMI Respiratory exam: PRESENT: symmetrical, unlabored Cardiovascular exam: PRESENT: irregular rhythm, +S1, +S2 GI/Abdominal exam: PRESENT: soft Rectal exam: PRESENT: deferred Neurological exam: PRESENT: alert, awake, oriented to person, oriented to place Focused psych exam: PRESENT: pressured speech Skin exam: PRESENT: dry, intact Results Laboratory Results: 02/05/20 06:23 02/05/20 06:23 02/05/20 02/05/20 06:23 06:23 WBC 4.7 RBC 4.00 Hgb 10.1 L D Hct 30.6 L MCV 77 L MCH 25.3 L MCHC 33.0 RDW 15.5 H Plt Count 172 Sodium 138.3 Potassium 4.0 Chloride 105 Carbon Dioxide 27 Anion Gap 6 BUN 18 Creatinine 0.86 Est GFR ( Amer) > 60 Glucose 90 Calcium 9.2 Magnesium 1.6 02/03/20 02/05/20 22:13 10:00 Troponin I 0.044 0.048 NT-Pro-B Natriuret Pep 1350 H EKG Comments: Twelve-lead EKG 01/23/2020. Independently viewed by me Atrial fibrillation rapid ventricular response 125 bpm Twelve-lead EKG 02/03/2020. Independently viewed by me Atrial fibrillation rapid ventricular response 124 bpm Transthoracic echocardiogram 01/24/2020 Left ventricular ejection fraction 65 to 70% No significant valve lesion was mention Cardiac troponin 01/23/2020 20-2223-0 0.037 01/24/2020 20-0625-0 0.045 01/24/2020-1310-0 0.040 01/24/2020-1715-0 0.042 01/25/2020 20-0849-0 0.851 206 3817-2213-0 0.044 02/05/2020-10 00-0.048 TSH was less than 0.01 Free T4 3.34 Free T3 6.10 Impressions: Chest X-Ray 02/03/20 20:45 IMPRESSION: No acute disease. copyright 2010 [employer]- All Rights Reserved Assessment & Plan - Notes Notes: Hypothyroidism Patient is being managed for hypothyroidism Atrial fibrillation rapid ventricular response This reflects catecholamine allergic excess on account of hypothyroidism Recommend continued use of beta-aniceto Continue systemic anticoagulation to decrease stroke risk Mildly elevated troponins without ischemic symptoms including complete absence of chest pain. This is likely due to atrial fibrillation and hyperthyroid state Unlikely due to acute coronary syndrome of myocardial ischemia Would not recommend re-stratification with ongoing hyperthyroidism If necessary re-stratification can be pursued once thyroid condition has been corrected This was explained to the patient Echocardiogram shows preserved ejection fraction and no significant wall motion abnormality was mentioned EKG without ischemic changes No clear trend as to troponin profile. This speaks against myocardial ischemia.
[2020-02-05] MEDS ORDERED: ATORVASTATIN CALCIUM 20 MG TABLET PO SCH (22:00)
== END 2020-02-05 17:22 | disposition home health service (06) | DRG 310 ==
LOC: ER 20:21 → EH 02-04 00:58 → 4N 02-04 02:50
PROVIDERS: ADMIT Emergency Medicine; ATTEND Hospitalist
DX: I48.19 Other persistent atrial fibrillation (principal); E05.90 Thyrotoxicosis, unspecified without thyrotoxic crisis or storm; R11.2 Nausea with vomiting, unspecified; R79.89 Other specified abnormal findings of blood chemistry; E87.6 Hypokalemia; E83.42 Hypomagnesemia; E78.5 Hyperlipidemia, unspecified; I10 Essential (primary) hypertension; E86.0 Dehydration; E66.9 Obesity, unspecified; Z68.33 Body mass index [BMI] 33.0-33.9, adult; E78.00 Pure hypercholesterolemia, unspecified; Z96.651 Presence of right artificial knee joint; Z79.899 Other long term (current) drug therapy; Z79.891 Long term (current) use of opiate analgesic; Z79.01 Long term (current) use of anticoagulants
CPT/HCPCS: 36415; 71045; 80048; 80053; 81001; 83605; 83735; 83880; 84439; 84443; 84481; 84484; 85025; 85027; 93005; 93010; 96361; 96374; 99285; J2405; J2550; J3475; J3480; J3490; J7030; J7121

== ENCOUNTER → 2020-02-07 | Outpatient (CLI) | payer MEDICARE, MEDICAID ==
[~2020-02-07] MED LIST changes: +AMINOPHYLLINE INJ/PF 250 MG/10 ML SDV IV ONE; -PROPOFOL INJ 200 MG/20 ML VIAL IV ONE; +REGADENOSON INJ 0.4 MG/5 ML DISP.SYRIN IV ONE
--- NOTE | 2020-02-07 18:42 | DRAGON STRESS TEST REPORT ---
INTRAVENOUS LEXISCAN CARDIOLITE STRESS TEST USING SINGLE PHOTON EMMISION COMPUTERIZED TOMOGRAPHIC. DATE OF PROCEDURE: February 07, 2020. INDICATION : Atrial fibrillation CARDIAC RISK FACTORS: Hypertension RESTING EKG: Sinus rhythm without any ST segment depression but T wave inversions noted STRESS EKG: No significant ST segment changes noted with LexiScan bolus REASON FOR TERMINATION: Protocol. PROCEDURE REPORT: Baseline heart rate 63 beats per minute with blood pressure of 109/50. Patient had no significant complaints. Patient was bolused with Lexiscan 0.4 mg intravenously followed by saline bolus. Heart rate at 2 minutes post bolus 78 with a blood pressure of 108/43. 3 minutes post bolus heart rate 69 with blood pressure of 102/42. No significant EKG changes were noted. Patient had no significant complaints during the procedure or postprocedure. CONCLUSIONS: Normal EKG and hemodynamic response to IV LexiScan. NUCLEAR DATA: At rest the patient was given 15.27 millicuries of technetium 99 sestamibi injected intravenously. As per protocol rest gated SPECT images were obtained. On day of stress test, the patient was given intravenous LexiScan at a dose of 0.4 mg in 5 mL intravenously, followed by flush with normal saline. Subsequently the stress dose of 45.7 millicuries of technetium 99 sestamibi was injected intravenously. As per protocol stress gated images were obtained. NUCLEAR INTERPRETATION: Both raw and processed data were used for interpretation. Visual, qualitative, computer-generated quantitative data was used. There was good myocardial uptake of technetium compound. Motion artifact and soft tissue attenuations were noted. Marked increased visceral uptake was noted. Also significant breast attenuation artifact was noted. This caused some problems with interpretation of inferior wall perfusion. Borderline decreased perfusion was noted in the distal anterior wall, however there were no corresponding wall motion abnormalities on gated imaging. No other definitive transient or fixed perfusion defect noted. EKG gated imaging showed LV EF at 65%, rest and stress gated EF similar visually. T. I D. ratio was 0.91. Lung heart ratio noted to be within normal limits 0.31. No significant extracardiac and abnormal radiotracer activities were noted. RV free wall uptake was noted to be WNL. IMPRESSION: Also refer to comments under nuclear interpretation. Also test results needs to be interpreted in the context of pretest probability. 1. No definitive areas of transient perfusion defect noted except for the borderline decreased perfusion in the distal anterior wall, possibly artifactual but cannot rule out mild ischemia. 2. There is no definitive scintigraphic evidence of myocardial infarction/scar. 3. EKG gated imaging shows left ventricular ejection fraction of approx. 65%. 4. Clinical correlation requested as worse disease and or balanced ischemia could be missed. In approximately 10% of the cases Lexiscan may not cause adequate vasodilatory stress. RECOMMENDATIONS: May consider stress echocardiogram if patient able to exercise. May also consider cardiac CTA, PET nuclear stress etc. Aggressive risk factor modification and medical management. Further evaluation may be needed if continued symptoms or other high risk indicators are noted on clinical evaluation. Close cardiology follow-up is also recommended. Clinical correlation with echocardiogram derived ejection fraction. Inability to exercise by itself can lead to increased cardiovascular event risks. Consider cardiology consultation and or follow-up if clinically indicated. I am available for cardiology evaluation and consultation if requested by the animal husbandry technician, unless patient already has a lamination technician. Dr. Perlita Diaz. MRCP Board certified in cardiology and sleep medicine. Board certified in nuclear cardiology, adult echocardiography. [place]
== END ==
LOC: RAD 08:39
PROVIDERS: ATTEND Internal Medicine Cardiovascular Disease
DX: I48.91 Unspecified atrial fibrillation (principal); I10 Essential (primary) hypertension
CPT/HCPCS: 93017; 78452; A9500; J2785; J0280; Q9969

== ENCOUNTER → 2020-04-07 | Day surgery (SDC) | payer MEDICARE, MEDICAID ==
[~2020-04-07] MED LIST changes: -AMINOPHYLLINE INJ/PF 250 MG/10 ML SDV IV ONE; +GLYCOPYRROLATE 1 MG/5 ML VIAL ONE; +KETOROLAC TROMETHAMINE 60 MG/2 ML SDV ONE; +METOPROLOL TARTRATE PF/INJ 5 MG/5 ML SDV IV ONE; +NEOSTIGMINE METHYLSULFATE 10 MG/10 ML VIAL ONE; +ONDANSETRON HCL INJ/PF 4 MG/2 ML SDV ONE; +PROPOFOL INJ 200 MG/20 ML VIAL IV ONE; -REGADENOSON INJ 0.4 MG/5 ML DISP.SYRIN IV ONE; +ROCURONIUM BROMIDE INJ 50 MG/5 ML VIAL IV ONE
--- NOTE | 2020-04-07 11:08 | Operative Report ---
Operative Report DATE OF SURGERY: 04/07/20 Operative Report: The risks benefits and alternatives of the procedure explained to the patient in detail and informed consent is obtained.A GIF Olympus video scope was inserted into the patient's mouth and hypopharynx, the esophagus is identified intubated and insufflated ,the scope was then advanced through the esophagus stomach and duodenum, retroflexion maneuver is done ,the esophagus stomach and first and second portions of the duodenum examined PREOPERATIVE DIAGNOSIS: Epigastric pain rule out peptic ulcer disease POSTOPERATIVE DIAGNOSIS: Gastritis status post biopsy OPERATION: EGD with biopsy SURGEON: JACKY OVALLE ANESTHESIA: LMAC TISSUE REMOVED OR ALTERED: As noted above. COMPLICATIONS: None. ESTIMATED BLOOD LOSS: None. INTRAOPERATIVE FINDINGS: As noted above. PROCEDURE: Patient tolerated the procedure well. No immediate postprocedure complications are noted. Patient is discharged in good condition. Discharge date 04/07/2020. Discharge diet: Regular. Discharge activity: Regular. 2 to 3-week follow-up to discuss findings. Patient is instructed to call the office or proceed to the emergency room should there be any further problems or questions. Wait on the pathology.
[2020-04-07 11:44] VITALS: BP 167/83
== END ==
LOC: END 09:02
PROVIDERS: ATTEND Internal Medicine Gastroenterology
DX: K29.50 Unspecified chronic gastritis without bleeding (principal); K21.9 Gastro-esophageal reflux disease without esophagitis; M06.9 Rheumatoid arthritis, unspecified; E66.9 Obesity, unspecified; Z79.01 Long term (current) use of anticoagulants; Z79.899 Other long term (current) drug therapy; Z68.35 Body mass index [BMI] 35.0-35.9, adult
CPT/HCPCS: 43239; 88342 ×2; 88305 ×2; 00731; J3490; J2405; J2704; 731; J1885; J2710

== ENCOUNTER 2020-04-11 10:00 | Inpatient (IN) | payer MEDICARE, MEDICAID ==
[2020-04-11] MEDS ORDERED: ROCURONIUM BROMIDE INJ 50 MG/5 ML VIAL IV ONE (10:16)
--- NOTE | 2020-04-11 10:19 | ER Document Report ---
ED General - General Chief Complaint: Unresponsive Stated Complaint: UNRESPONSIVE Notes: Patient presents via EMS post cardiac arrest found down last seen normal 20 rebecca ameena prior no bystander CPR initial rhythm V. fib ACLS x4 with epi and shocks with ROSC. Pressure became labile after that dropping, started Levophed infusion. Patient neurologically was not doing much, had a right gaze deviation initially with nonreactive pupils. No other info is available except that she has untreated hypertension TRAVEL OUTSIDE OF THE [place] IN LAST 30 DAYS: No - Related Data Allergies/Adverse Reactions: No Known Allergies Allergy (Verified 01/23/20 19:26) Past Medical History - General Cannot obtain history due to: Unstable vital signs - Social History Smoking Status: Unknown if Ever Smoked Family History: Hypertension, Other - asthma - Past Medical History Cardiac Medical History: Reports: Hx Atrial Fibrillation, Hx Hypercholes terolemia, Hx Hypertension Denies: Hx Congestive Heart Failure, Hx Coronary Artery Disease, Hx DVT, Hx Heart Attack, Hx Pulmonary Embolism Pulmonary Medical History: Denies: Hx Asthma, Hx Bronchitis, Hx COPD, Hx Pneumonia Neurological Medical History: Denies: Hx Cerebrovascular Accident, Hx Seizures Endocrine Medical History: Reports: Hx Hyperthyroidism. Denies: Hx Diabetes Mellitus Type 1, Hx Diabetes Mellitus Type 2, Hx Hypothyroidism Renal/ Medical History: Denies: Hx Peritoneal Dialysis GI Medical History: Denies: Hx Cirrhosis, Hx Crohn's Disease, Hx Gastroes ophageal Reflux Disease, Hx Hepatitis, Hx Ulcerative Colitis Musculoskeletal Medical History: Denies Hx Arthritis, Denies Hx Fibromyalgia Skin Medical History: Denies Hx Eczema, Denies Hx Psoriasis Psychiatric Medical History: Denies: Hx Depression Infectious Medical History: Denies: Hx Hepatitis Past Surgical History: Reports: Hx Section, Hx Orthopedic Surgery - Right total knee arthroplasty - Immunizations Hx Diphtheria, Pertussis, Tetanus Vaccination: No Review of Systems - Review of Systems Notes: REVIEW OF SYSTEMS Vital signs PHYSICAL EXAMINATION General: Obese unresponsive Head: Atraumatic, normocephalic ENT: Poor dentition I gel airway in place Eyes: Conjunctiva normal, pupils 4 mm bilaterally without reaction, midline Neck: No JVD, supple, no guarding CVS: Normal rate, regular rhythm, no murmurs Resp: No resp distress, equal and normal breath sounds bilaterally GI: Nondistended obese Ext: No deformities, no edema, normal range of motion in upper and lower ext Back: No CVA or midline TTP Skin: No rash, warm Lymphatic: No lymphadeopathy noted Neuro: GCS verbal: T, eyes: 1, motor: 1no response to pain Physical Exam - Vital signs Vitals: Pulse Ox 100 04/11/20 10:03 Course - Re-evaluation Re-evalutation: 04/11/20 10:21 Unresponsive female status post cardiac arrest arrives in ED. History of gaze deviation both hypertension and hypotension now on Levophed drip. Suspect either intracranial hemorrhage or primary cardiac/respiratory arrest. 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 Very obese difficult EKGlooks like bigeminy but will repeat. Preoxygenated position well, and intubated successfully with rocuronium only given mental status Subsequent vital signs good in fact became hypertensive so stopped Levophed. S econd IV access obtained ABG done on the ventilator Chest x-ray shows good tube placement and possible retrocardiac consolidation OG tube placement difficult will defer until after CT which I have ordered emergently to rule out intracranial hemorrhage especially given Xarelto 04/11/20 11:16 Discussed with Neisha for admission Given potassium is repletion decreased FiO2 to maintain sats just above 95 and avoid hyperoxia Patient is at about 35 degrees core temperature for now we will keep her here for targeted temperature management Discussed in detail with family regarding uncertain prognosis They wish to keep her full code for now - Vital Signs Vital signs: Temp Pulse Resp BP Pulse Ox 95.0 F L 20 163/92 H 99 04/11/20 11:06 04/11/20 11:06 04/11/20 11:06 04/11/20 11:11 - Laboratory Result Diagrams: 04/11/20 10:05 04/11/20 10:05 Laboratory results interpreted by me: 04/11/20 04/11/20 04/11/20 10:05 10:05 10:05 WBC 14.5 H Hgb 10.8 L Hct 33.6 L RDW 24.3 H [place] % (Auto) 2.5 L Absolute Neuts (auto) 9.4 H ABG pH 7.23 L ABG pO2 485.8 H ABG HCO3 17.4 L ABG Total CO2 18.7 L ABG O2 Saturation 99.8 H Potassium 3.1 L Carbon Dioxide 19 L Est GFR (MDRD) Non-Af 57 L Glucose 199 H AST 363 H ALT 129 H - Diagnostic Test Radiology reviewed: Image reviewed, Reports reviewed - EKG Interpretation by Me EKG shows normal: Sinus rhythm Rate: Normal Rhythm: NSR When compared to previous EKG there are: Previous EKG unavailable - No ST depression No ST elevation Normal intervals Procedures - Intubation Orotracheal Airway evaluation: Normal anatomy, Copious secretions Mallampati Classification: Class 2 Medications: Other - Rocuronium 80 Intubation method: Orotracheal Blade type: Other - Hyper angulated glide blade #3 Blade size: 3 Equipment used: Glidescope ETT size: 7.5 ETT secured at: Teeth ETT secured at (cm): 24 - Subsequently pulled back to Breath Sounds after Intubation: Equal End tidal CO2 confirmed: Yes Ventilator settings: AC Post Intubation Xray: Yes Intubation Complications: No complications Critical Care Note - Critical Care Note Total time excluding time spent on procedures (mins): 74 Comments: The above patient is critically ill. Not including procedures, but including direct re-evaluations, speaking with patient and/or consultants, interpreting results, and documenting, I spent the total amount of minute listed listed above on critical care time Discharge - Discharge Clinical Impression: Cardiac arrest Condition: Critical Disposition: ADMITTED INPATIENT Admitting Provider: Neisha (Pollution Control Technician) Unit Admitted: ICU
[2020-04-11 10:33] LABS: ABSOLUTE BASOPHILS # (AUTO) 0.1 10^3/uL (0.0-0.2); ABSOLUTE EOSINOPHILS # (AUTO) 0.2 10^3/uL (0.0-0.6); ABSOLUTE LYMPHOCYTES (AUTO) 4.5 10^3/uL (0.5-4.7); ABSOLUTE MONOCYTES (AUTO) 0.4 10^3/uL (0.1-1.4); ABSOLUTE NEUT (AUTO) 9.4 10^3/uL (1.7-8.2); BASOPHILS % (AUTO) 0.6 % (0-2); EOSINOPHILS % (AUTO) 1.1 % (0-6); HEMATOCRIT 33.6 % (36.0-47.0); HEMOGLOBIN 10.8 g/dL (12.0-15.5); MEAN CORPUSCULAR HEMOGLOBIN 27.2 pg (27.0-33.4); MEAN CORPUSCULAR HGB CONC 32.1 g/dL (32.0-36.0); MEAN CORPUSCULAR VOLUME 85 fl (80-97); MONOCYTES % (AUTO) 2.5 % (3-13); PLATELET COUNT 287 10^3/uL (150-450); RED BLOOD COUNT 3.97 10^6/uL (3.72-5.28); RED CELL DISTRIBUTION WIDTH 24.3 % (11.5-14.0); SEGMENTED NEUTROPHILS % (AUTO) 64.8 % (42-78); TOTAL CELLS COUNTED % (AUTO) 100 %; WHITE BLOOD COUNT 14.5 10^3/uL (4.0-10.5)
[2020-04-11 10:41] LABS: ARTERIAL BLOOD BASE EXCESS -9.7 mmol/L; ARTERIAL BLOOD FIO2 100%; ARTERIAL BLOOD H2CO3 1.28 mmol/L (1.05-1.35); ARTERIAL BLOOD HCO3 17.4 mmol/L (20-24); ARTERIAL BLOOD O2 SATURATION 99.8 % (94-98); ARTERIAL BLOOD PCO2 42.5 mmHg (35-45); ARTERIAL BLOOD PH 7.23 (7.35-7.45); ARTERIAL BLOOD PO2 485.8 mmHg (80-100); ARTERIAL BLOOD TOTAL CO2 18.7 mmol/L (21-25)
--- NOTE | 2020-04-11 10:41 | RADIOLOGY REPORT (SQ) ---
EXAM DESCRIPTION: CHEST SINGLE VIEW IMAGES COMPLETED DATE/TIME: 04/11/2020 10:26 am REASON FOR STUDY: ETT COMPARISON: 02/03/2020 EXAM PARAMETERS: NUMBER OF VIEWS: One view. TECHNIQUE: Single frontal radiographic view of the chest acquired. RADIATION DOSE: NA LIMITATIONS: None. FINDINGS: LUNGS AND PLEURA: There is left retrocardiac airspace disease either atelectasis or pneumo huyen. Endotracheal tube is been placed. Catheter directed toward the right of midline but lies appro ximately 2.3 cm above the marc. No pneumothorax. MEDIASTINUM AND HILAR STRUCTURES: No masses. Contour normal. HEART AND VASCULAR STRUCTURES: Heart normal in size. Normal vasculature. BONES: No acute findings. HARDWARE: None in the chest. OTHER: No other significant finding. IMPRESSION: 1. Endotracheal tubes in satisfactory position. 2. Left retrocardiac airspace disease either atelectasis or pneumonia. TECHNICAL DOCUMENTATION: JOB ID: [id number] 2010 [employer]- All Rights Reserved Reading location - IP/workstation name: [email or web address]
[2020-04-11 10:43] LABS: ALBUMIN 3.6 g/dL (3.5-5.0); ALKALINE PHOSPHATASE 109 U/L (38-126); ANION GAP 18 (5-19); ASPARTATE AMINO TRANSFERASE 363 U/L (14-36); BILIRUBIN,DIRECT 0.3 mg/dL (0.0-0.4); BILIRUBIN,TOTAL 0.6 mg/dL (0.2-1.3); BLOOD UREA NITROGEN 12 mg/dL (7-20); CALCIUM 9.4 mg/dL (8.4-10.2); CARBON DIOXIDE 19 mmol/L (22-30); CHLORIDE 105 mmol/L (98-107); CREATINE KINASE 108 U/L (30-135); GLUCOSE 199 mg/dL (75-110); POTASSIUM 3.1 mmol/L (3.6-5.0)
[2020-04-11 10:55] LABS: CREATINE KINASE MB 2.25 ng/mL (<4.55)
[2020-04-11 10:58] LABS: ANISOCYTOSIS 3+; PLATELET COMMENT ADEQUATE
[2020-04-11 10:59] LABS: HYPOCHROMASIA SLIGHT; POLYCHROMASIA SLIGHT; TOXIC VACUOLATION PRESENT
--- NOTE | 2020-04-11 10:59 | RADIOLOGY REPORT (SQ) ---
EXAM DESCRIPTION: CT HEAD WITHOUT IMAGES COMPLETED DATE/TIME: 04/11/2020 10:47 am REASON FOR STUDY: AMWS COMPARISON: None. TECHNIQUE: Axial images acquired through the brain without intravenous contrast. Images reviewed wi th bone, brain and subdural windows. Additional sagittal and coronal reconstructions were generated. Images stored on PACS. All CT scanners at this facility use dose modulation, iterative reconstruction, and/or weight based d osing when appropriate to reduce radiation dose to as low as reasonably achievable (ALARA). [facility]: Dose Right [facility]: CareDose [facility]: Dose Right [facility]: Teradose 4D [facility]: iFlipd RADIATION DOSE: CT Rad equipment meets quality standard of care and radiation dose reduction techniq ues were employed. CTDIvol: 53.2 mGy. DLP: 1044 mGy-cm. mGy. LIMITATIONS: None. FINDINGS: VENTRICLES: Normal size and contour. CEREBRUM: No masses. No hemorrhage. No midline shift. No evidence for acute infarction. Normal gra y/white matter differentiation. No areas of low density in the white matter. CEREBELLUM: No masses. No hemorrhage. No alteration of density. No evidence for acute infarction. EXTRAAXIAL SPACES: No fluid collections. No masses. ORBITS AND GLOBE: No intra- or extraconal masses. Normal contour of globe without masses. CALVARIUM: No fracture. PARANASAL SINUSES: No fluid or mucosal thickening. SOFT TISSUES: No mass or hematoma. OTHER: No other significant finding. IMPRESSION: NORMAL BRAIN CT WITHOUT CONTRAST. EVIDENCE OF ACUTE STROKE: NO. COMMENT: Quality ID # [id number]: Final reports with documentation of one or more dose reduction techniques (e.g., Automated exposure control, adjustment of the mA and/or kV according to patient size, use of iterative reconstruction technique) TECHNICAL DOCUMENTATION: JOB ID: [id number] 2010 [employer]- All Rights Reserved Reading location - IP/workstation name: [email or web address]
[2020-04-11 11:02] LABS: TROPONIN I 0.114 ng/mL
[2020-04-11] MEDS ORDERED: NOREPINEPHRINE BITARTRATE INJ/PF 4 MG/4 ML SDV IV ONE (11:12)
[2020-04-11] MEDS: POTASSI CL 20 MEQ/50 ML RIDER 20 MEQ/50 ML RTUPB IV SCH ×3 (11:18→23:15)
--- NOTE | 2020-04-11 11:51 | CRITICAL CARE ADMISSION REPORT ---
HPI Date:: 04/11/20 Time:: 11:40 Reason for ICU Reason:: S/P cardiac Arrest. Admission Date/Time & PCP: Admission Date/Time: 04/11/20 11:19 Primary Care Provider: HPI: Patient presents via EMS post cardiac arrest found down last seen normal 20 minutes prior no bystander CPR initial rhythm V. fib ACLS x4 with epi and shocks with ROSC. Pressure became labile after that dropping, started Levophed infusion. Patient neurologically was not doing much, had a right gaze deviation initially with nonreactive pupils. No other info is available except that she has untreated hypertension 04/11 I was calld by Dr. Farnsworth who asked me to admit thepatientShe is presently unresponsive. GCs appears to be about 3 presently. The patient was reportedly found down without a pulse. had about 20 minutes of resuscitation with about 4 rounds of epinehrine. She was debrillated 1 x for Ventricualr defibrillation At present I do not have alot of details about her Past Medical history. Her CAT of head was done and shows a normal brain. She is a sinus tach without ectopy presently. had been on Levophed which is now off. She is been intubated and ventilated. Past Medical History Cardiac Medical History: Reports: Atrial Fibrillation, Hyperlipidema, Hyperte nsion Denies: Congestive Heart Failure, Coronary Artery Disease, DVT, Myocardial Infarction, Pulmonary Embolism Pulmonary Medical History: Denies: Asthma, Bronchitis, Chronic Obstructive Pulmonary Disease (COPD), Pneumonia Neurological Medical History: Denies: Seizures Endocrine Medical History: Reports: Hyperthyroidism Denies: Diabetes Mellitus Type 1, Diabetes Mellitus Type 2, Hypothyroidism GI Medical History: Denies: Cirrhosis, Crohn's Disease, Gastroesophageal Reflux Disease, Hepati tis, Ulcerative Colitis Musculoskeltal Medical History: Denies: Arthritis, Fibromyalgia Skin Medical History: Denies: Eczema, Psoriasis Psychiatric Medical History: Denies: Depression Hematology: Denies: Anemia, Bleeding Tendencies Past Surgical History Past Surgical History: Reports: Section, Orthopedic Surgery - Right total knee arthroplasty Social/Family History - Social History Smoking Status: Unknown if Ever Smoked Frequency of Alcohol Use: None Hx Recreational Drug Use: No Drugs: None Hx Prescription Drug Abuse: No - Medication/Allergies Home Medications: Atorvastatin Calcium [Lipitor 20 mg Tablet] 20 mg PO QHS 01/24/20 Multivitamin [Tab-A-Pilar (Multiple Vitamin) Tablet] 1 tab PO DAILY 01/24/20 Magnesium Oxide 400 mg PO QHS 02/04/20 Famotidine [Pepcid 20 mg Tablet] 20 mg PO Q12 #60 tablet 02/05/20 Methimazole [Tapazole] 10 mg PO DAILY #30 tablet 02/05/20 Metoprolol Succinate [Toprol Xl] 100 mg PO DAILY #30 tab.er.24h 02/05/20 Ondansetron [Zofran Odt 4 mg Tablet] 4 mg PO Q4HP PRN #30 tab.rapdis 02/05/20 Potassium Chloride [Klor-Con 10 Meq Tablet ER] 10 meq PO BID #60 tablet.er 02/05/20 Rivaroxaban [Xarelto] 20 mg PO DAILY #30 tablet 02/05/20 Allergies/Adverse Reactions: No Known Allergies Allergy (Verified 01/23/20 19:26) Review of Systems ROS unobtainable: Due to endotracheal tube, Due to mental status Physical Exam Vital Signs: Temp Pulse Resp BP Pulse Ox 95.0 F L 20 163/92 H 99 04/11/20 11:06 04/11/20 11:06 04/11/20 11:06 04/11/20 11:11 Intake & Output 04/10/20 04/11/20 04/12/20 06:59 06:59 06:59 Weight 109.9 kg Weight/Height Weight 109.9 kg General appearance: PRESENT: no acute distress, morbidly obese Head exam: PRESENT: atraumatic, normocephalic Eye exam: PRESENT: conjunctival injection Ear exam: PRESENT: normal external ear exam Neck exam: ABSENT: tenderness Respiratory exam: ABSENT: accessory muscle use Cardiovascular exam: PRESENT: bradycardia Pulses: PRESENT: normal carotid pulses, normal femoral pulses GI/Abdominal exam: PRESENT: diminished bowel sounds. ABSENT: distended Rectal exam: PRESENT: deferred Extremities exam: ABSENT: calf tenderness Neurological exam: PRESENT: other - The patient ois comatose. She is not moving or opening or eyes. Laboratory/Radiographs Laboratory Results: 04/11/20 10:05 04/11/20 10:05 04/11/20 04/11/20 04/11/20 10:05 10:05 10:05 WBC 14.5 H RBC 3.97 Hgb 10.8 L Hct 33.6 L MCV 85 MCH 27.2 MCHC 32.1 RDW 24.3 H Plt Count 287 Seg Neutrophils % 64.8 Carbonic Acid 1.28 HCO3/H2CO3 Ratio 13:1 ABG pH 7.23 L ABG pCO2 42.5 ABG pO2 485.8 H ABG HCO3 17.4 L ABG O2 Saturation 99.8 H ABG Base Excess -9.7 FiO2 100% Sodium 141.8 Potassium 3.1 L Chloride 105 Carbon Dioxide 19 L Anion Gap 18 BUN 12 Creatinine 0.97 Est GFR ( Amer) > 60 Glucose 199 H Calcium 9.4 Total Bilirubin 0.6 AST 363 H Alkaline Phosphatase 109 Total Protein 7.0 Albumin 3.6 04/11/20 04/11/20 10:05 10:05 Creatine Kinase 108 CK-MB (CK-2) 2.25 Troponin I 0.114 Impressions: Chest X-Ray 04/11/20 10:15 IMPRESSION: 1. Endotracheal tubes in satisfactory position. 2. Left retrocardiac airspace disease either atelectasis or pneumonia. Head CT 04/11/20 10:15 IMPRESSION: NORMAL BRAIN CT WITHOUT CONTRAST. EVIDENCE OF ACUTE STROKE: NO. Critical Time Critical Time (minutes): 35 -: The care of a critically ill patient is dynamic. This note represents a static moment in the admission process. Orders and treatments may be given simultaneously and urgently, and time is not malt liquors sales representative of the treatment process. This patient requires Critical Care secondary to life threatening organ or limb dysfunction. Without Critical Care services, the patient is at risk for increased mortality and morbidity.
[2020-04-11] MEDS: RINGERS SOLUTION,LACTATED 1,000 ML IV PRN (11:52)
[2020-04-11 12:33] LABS: APPEARANCE,URINE SLIGHTLY-CLOUDY; BILIRUBIN,URINE NEGATIVE (NEGATIVE); COLOR,URINE YELLOW; GLUCOSE, URINE 150 mg/dL (NEGATIVE); KETONES,URINE NEGATIVE (NEGATIVE); LEUKOCYTE ESTERASE,URINE SMALL (NEGATIVE); NITRITE,URINE NEGATIVE (NEGATIVE); PROTEIN,URINE 100 mg/dL (NEGATIVE); URINE SPECIFIC GRAVITY 1.008; UROBILINOGEN,URINE NEGATIVE mg/dL (<2.0)
[2020-04-11 12:50] LABS: URINE AMPHETAMINES SCREEN NEGATIVE; URINE BARBITURATES SCREEN NEGATIVE; URINE BENZODIAZEPINES SCREEN NEGATIVE; URINE COCAINE SCREEN NEGATIVE; URINE MARIJUANA (THC) SCREEN NEGATIVE; URINE METHADONE SCREEN NEGATIVE; URINE PHENCYCLIDINE SCREEN NEGATIVE
--- NOTE | 2020-04-11 12:53 | RADIOLOGY REPORT (SQ) ---
EXAM DESCRIPTION: CHEST SINGLE VIEW IMAGES COMPLETED DATE/TIME: 04/11/2020 12:45 pm REASON FOR STUDY: OG tube placement COMPARISON: None. EXAM PARAMETERS: NUMBER OF VIEWS: One view. TECHNIQUE: Single frontal radiographic view of the chest acquired. RADIATION DOSE: NA LIMITATIONS: None. FINDINGS: Limited view the abdomen is obtained for OG tube placement. Catheter tip overlies the mid abdomen just right of the lumbar spine most likely within stomach. IMPRESSION: OG tube has been placed as described. TECHNICAL DOCUMENTATION: JOB ID: [id number] 2010 [employer]- All Rights Reserved Reading location - IP/workstation name: [email or web address]
[2020-04-11 13:28] LABS: ARTERIAL BLOOD BASE EXCESS -5.3 mmol/L; ARTERIAL BLOOD H2CO3 1.01 mmol/L (1.05-1.35); ARTERIAL BLOOD O2 SATURATION 90.7 % (94-98); ARTERIAL BLOOD PCO2 33.4 mmHg (35-45); ARTERIAL BLOOD PH 7.37 (7.35-7.45)
[2020-04-11 13:29] LABS: ARTERIAL BLOOD FIO2 21%
--- NOTE | 2020-04-11 13:29 | EKG REPORT ---
SEVERITY:- ABNORMAL ECG - SINUS OR ECTOPIC ATRIAL TACHYCARDIA LEFT AXIS DEVIATION ST DEPRESSION, CONSIDER ISCHEMIA, ANT LEADS PROLONGED QT INTERVAL : Confirmed by: Mi Perdomo MD 11-Apr-2020 13:28:54
--- NOTE | 2020-04-11 13:29 | EKG REPORT ---
SEVERITY:- ABNORMAL ECG - SINUS RHYTHM RBBB AND LAFB : Confirmed by: Mi Perdomo MD 11-Apr-2020 13:28:59
[2020-04-11] MEDS: MAGNESIUM SULFATE/D5W 1 GM/100 ML RTUPB IV SCH ×2 (14:29→15:46)
[2020-04-11] MEDS ORDERED: METOPROLOL TARTRATE PF/INJ 5 MG/5 ML SDV IV ONE (14:30)
[2020-04-11 15:22] LABS: ANION GAP 17 (5-19); BLOOD UREA NITROGEN 14 mg/dL (7-20); CALCIUM 9.2 mg/dL (8.4-10.2); CARBON DIOXIDE 18 mmol/L (22-30); CHLORIDE 107 mmol/L (98-107); GLUCOSE 224 mg/dL (75-110)
[2020-04-11 15:28] LABS: POTASSIUM 2.9 mmol/L (3.6-5.0)
--- NOTE | 2020-04-11 16:39 | XCELERA REPORT ---
[address] [address] Transthoracic Echocardiogram Report Name: BENITO CUENCA Age: 64 yrs Gender: Female : 1955 Patient Status: Inpatient Patient Location: [place] [address]^A Study Date: 04/11/2020 01:07 PM Height: 67 in Weight: 242 lb BSA: 2.2 m2 Procedure: A complete two-dimensional transthoracic echocardiogram was performed (2D, M-mode, spectral and color flow Doppler). Study Quality: Technically suboptimal. Reason For Study: s/p cardiac arrest Ordering Physician: ANNA MARIE GARNER Performed By: Alesha Zamora Interpretation Summary The left ventricle is grossly normal size. Left ventricular systolic function is mildly reduced. LV systolic function is difficult to assess given the suboptimal views but appears to be 40-45%. Doppler measurements suggest normal left ventricular diastolic function. There is mild global hypokinesis of the left ventricle. Regional wall motion abnormalities cannot be excluded due to limited visualization. Trace MR, mild TR, mild PI. When compared to a prior study dated FEB 09: -LV systolic function is depressed. -There is mild global hypokinesis. -Pulmonary pressures are no only borderline to mildly elevated. MMode/2D Measurements & Calculations RVDd: 2.5 cm LVIDd: 5.3 cm FS: 21.6 % Ao root diam: 3.3 cm IVSd: 1.1 cm LVIDs: 4.1 cm EDV(Teich): Ao root area: 133.9 ml LVPWd: 1.0 cm 8.4 cm2 ESV(Teich): 75.7 mlLA dimension: 3.2 cm EF(Teich): 43.5 % LVLd ap4: 8.8 cm SV(MOD-sp4): EDV(MOD-sp4): 32.0 ml 94.0 ml LVLs ap4: 7.7 cm ESV(MOD-sp4): 62.0 ml EF(MOD-sp4): 34.0 % Doppler Measurements & Calculations MV E max chiquita: MV P1/2t max chiquita: Ao V2 max: LV V1 max P.0 cm/sec 94.7 cm/sec 123.4 cm/sec 4.0 mmHg MV A max chiquita: MV P1/2t: 35.8 msec Ao max PG: LV V1 max: 74.0 cm/sec 6.1 mmHg 100.6 cm/sec MVA(P1/2t): 6.1 cm2 MV E/A: 1.0 MV dec slope: 774.4 cm/sec2 MV dec time: 0.23 sec PA V2 max: PI end-d chiquita: TR max chiquita: MV P1/2t-pr_phl: 86.9 cm/sec 152.9 cm/sec 284.1 cm/sec 35.8 msec PA max PG: TR max P.0 mmHg 32.3 mmHg Left Ventricle The left ventricle is grossly normal size. Left ventricular systolic function is mildly reduced. LV systolic function is difficult to assess given the suboptimal views but appears to be 40-45%. Doppler measurements suggest normal left ventricular diastolic function. There is mild global hypokinesis of the left ventricle. Regional wall motion abnormalities cannot be excluded due to limited visualization. Right Ventricle The right ventricle is grossly normal size. The right ventricular systolic function is normal. Atria The right atrium is normal. The left atrial size is normal. The interatrial septum is difficult to see, but appears to be grossly normal. Mitral Valve The mitral valve is grossly normal. There is no evidence of mitral valve prolapse. There is no mitral valve stenosis. There is a trace amount of mitral regurgitation. Aortic Valve The aortic valve is normal in structure and functions normally. The aortic valve is trileaflet. There is no aortic valvular vegetation. There is no aortic valve stenosis. No aortic regurgitation is present. Tricuspid Valve The tricuspid valve is not well visualized, but is grossly normal. There is no tricuspid valve prolapse. There is no tricuspid stenosis. There is a mild amount of tricuspid regurgitation. Pulmonic Valve The pulmonic valve is not well seen, but is grossly normal. The pulmonic valve is not well visualized. There is no vegetation on the pulmonic valve. There is no pulmonic valvular stenosis. There is a mild amount of pulmonic regurgitation. Great Vessels The aortic root is normal size. The inferior vena cava appeared small and collapsed with respiration (RAP 0-5 mmHg). : ANNA MARIE GARNER Antonio
[2020-04-11] MEDS: POTASSIUM CHLORIDE 20 MEQ/50 ML RTU IV SCH ×2 (16:53→17:50)
[2020-04-11] MEDS ORDERED: DILTIAZEM HCL/D5W 125 MG/125 ML RTUINJ IV PRN (17:17)
[2020-04-11] MEDS ORDERED: DILTIAZEM HCL INJ 25 MG/5 ML VIAL IV ONE (17:45)
[2020-04-11 17:54] LABS: FREE T4 (FREE THYROXINE) 1.02 ng/dL (0.78-2.19)
[2020-04-11 18:08] LABS: THYROID STIMULATING HORMONE 0.48 uIU/mL (0.47-4.68)
[2020-04-11 18:13] LABS: ARTERIAL BLOOD BASE EXCESS -3.4 mmol/L; ARTERIAL BLOOD H2CO3 1.18 mmol/L (1.05-1.35); ARTERIAL BLOOD HCO3 21.7 mmol/L (20-24); ARTERIAL BLOOD O2 SATURATION 96.3 % (94-98); ARTERIAL BLOOD PCO2 39.1 mmHg (35-45); ARTERIAL BLOOD PH 7.36 (7.35-7.45); ARTERIAL BLOOD TOTAL CO2 22.9 mmol/L (21-25)
[2020-04-11 18:14] LABS: ARTERIAL BLOOD FIO2 21%
[2020-04-11] MEDS ORDERED: LORAZEPAM INJ 2 MG/1 ML VIAL IV PRN (19:09)
[2020-04-11 20:57] LABS: ANION GAP 18 (5-19); BLOOD UREA NITROGEN 14 mg/dL (7-20); CALCIUM 9.6 mg/dL (8.4-10.2); CARBON DIOXIDE 20 mmol/L (22-30); CHLORIDE 104 mmol/L (98-107); GLUCOSE 239 mg/dL (75-110); POTASSIUM 3.1 mmol/L (3.6-5.0)
[2020-04-11] MEDS: FAMOTIDINE INJ/PF 20 MG/2 ML SDV IV SCH (22:01)
[2020-04-11] MEDS ORDERED: POTASSI CL 20 MEQ/50 ML RIDER 40 MEQ/100 ML RTUPB IV ONE (23:03)
[2020-04-12] MEDS: POTASSI CL 20 MEQ/50 ML RIDER 20 MEQ/50 ML RTUPB IV SCH (01:15)
[2020-04-12] MEDS ORDERED: LIDOCAINE HCL/D5W/PF 2,000 MG/250 ML RTUINJ IV ONE (02:51)
[2020-04-12] MEDS ORDERED: D5W IV PRN (03:16)
[2020-04-12] MEDS ORDERED: LIDOCAINE IV PRN (03:16)
[2020-04-12] MEDS ORDERED: LIDOCAINE 2% INJ-PF (100 MG/5 ML) SYRINGE IV ONE ×2 (03:30→15:30)
[2020-04-12 04:12] LABS: ANION GAP 17 (5-19); BLOOD UREA NITROGEN 14 mg/dL (7-20); CALCIUM 9.2 mg/dL (8.4-10.2); CARBON DIOXIDE 20 mmol/L (22-30); CHLORIDE 104 mmol/L (98-107); CHOLESTEROL 186.17 mg/dL (0-200); GLUCOSE 238 mg/dL (75-110); POTASSIUM 3.9 mmol/L (3.6-5.0); TRIGLYCERIDES 91 mg/dL (<150)
[2020-04-12 04:23] LABS: DIRECT LDL 91 mg/dL (<100)
[2020-04-12 04:33] LABS: ABSOLUTE BASOPHILS # (AUTO) 0.1 10^3/uL (0.0-0.2); ABSOLUTE LYMPHOCYTES (AUTO) 1.8 10^3/uL (0.5-4.7); ABSOLUTE MONOCYTES (AUTO) 1.1 10^3/uL (0.1-1.4); ABSOLUTE NEUT (AUTO) 15.7 10^3/uL (1.7-8.2); BASOPHILS % (AUTO) 0.3 % (0-2); HEMATOCRIT 36.3 % (36.0-47.0); HEMOGLOBIN 11.7 g/dL (12.0-15.5); LYMPHOCYTES % (AUTO) 9.7 % (13-45); MEAN CORPUSCULAR HEMOGLOBIN 26.6 pg (27.0-33.4); MEAN CORPUSCULAR HGB CONC 32.4 g/dL (32.0-36.0); MEAN CORPUSCULAR VOLUME 82 fl (80-97); MONOCYTES % (AUTO) 5.8 % (3-13); PLATELET COUNT 236 10^3/uL (150-450); RED BLOOD COUNT 4.41 10^6/uL (3.72-5.28); RED CELL DISTRIBUTION WIDTH 24.6 % (11.5-14.0); SEGMENTED NEUTROPHILS % (AUTO) 84.2 % (42-78); TOTAL CELLS COUNTED % (AUTO) 100 %; WHITE BLOOD COUNT 18.7 10^3/uL (4.0-10.5)
[2020-04-12 04:43] LABS: ANISOCYTOSIS 3+; BURR CELLS SLIGHT; PLATELET COMMENT ADEQUATE; POIKILOCYTOSIS 1+; POLYCHROMASIA 1+
--- NOTE | 2020-04-12 07:44 | PDOC CONSULTATION ---
Consultation Consult Date: 04/12/20 Attending physician:: ANNA MARIE GARNER Provider Consulted: MICKEY RYDER Consult reason:: Cardiac arrest History of Present Illness Admission Date/PCP: 04/11/20 11:19 History of Present Illness: BENITO CUENCA is a 64 year old female with history of hypertension, paroxysmal atrial fibrillation with her first episode in January 2020, type 2 diabetes, hyperlipidemia, lifelong non-smoker, without known drug allergies and no family history of premature coronary artery disease who is consulted to our service after the patient suffered a cardiac arrest. The patient was brought to the emergency room yesterday via EMS after she was found down. Upon evaluation she was found to be pulseless and in ventricular fibrillation. ACLS efforts were initiated at that time with ROSC. Unfortunately it is not known with certainty how long the patient was unconscious but it appears to be that she had been seen doing well 20 minutes prior to the event. She is currently intubated in the intensive care unit. Unfortunately she had multiple episodes of ventricular tachycardia throughout the night and, per nurse practitioner Aura report, she coded again last night after a lidocaine infusion was begun and she dropped her pressures. Physical exam on 04/12/2020: GENERAL: Intubated, looks older than stated age, obese, not sedated however unresponsive to commands. HEENT: Normocephalic, atraumatic. Sclerae anicteric. Oropharynx moist. NECK: No JVD. No carotid bruits. LUNGS: Clear to auscultation bilaterally. Normal respiratory effort without the use of accessory muscles or intercostal retractions. CARDIOVASCULAR: Regular rate and rhythm, normal S1 and S2 without murmurs, rubs, or gallops. PMI not displaced. ABDOMEN: Difficult to evaluate for organomegaly due to her obesity. No overt tenderness to palpation. No abdominal aorta bruit noted. EXTREMITIES: No edema, no cyanosis, no clubbing. +2 pulses femoral and pedal pulses bilaterally. SKIN: No lesions or rashes. MUSCULOSKELETAL: No chest tenderness to palpation. NEUROLOGIC: Essentially unresponsive, only withdraws to pain. Past Medical History Cardiac Medical History: Reports: Atrial Fibrillation, Hyperlipidema, Hypertension Denies: Congestive Heart Failure, Coronary Artery Disease, DVT, Myocardial I nfarction, Pulmonary Embolism Pulmonary Medical History: Denies: Asthma, Bronchitis, Chronic Obstructive Pulmonary Disease (COPD), Pneumonia Neurological Medical History: Denies: Seizures Endocrine Medical History: Reports: Hyperthyroidism Denies: Diabetes Mellitus Type 1, Diabetes Mellitus Type 2, Hypothyroidism GI Medical History: Denies: Cirrhosis, Crohn's Disease, Gastroesophageal Reflux Disease, Hepatitis, Ulcerative Colitis Musculoskeltal Medical History: Denies: Arthritis, Fibromyalgia Skin Medical History: Denies: Eczema, Psoriasis Psychiatric Medical History: Denies: Depression Hematology: Denies: Anemia, Bleeding Tendencies Past Surgical History Past Surgical History: Reports: Section, Orthopedic Surgery - Right total knee arthroplasty Social History Smoking Status: Unknown if Ever Smoked Frequency of Alcohol Use: None Hx Recreational Drug Use: No Drugs: None Hx Prescription Drug Abuse: No Family History Family History: Hypertension, Other - asthma Parental Family History Reviewed: Yes Children Family History Reviewed: Yes Sibling(s) Family History Reviewed.: Yes Medication/Allergy Home Medications: Atorvastatin Calcium [Lipitor 20 mg Tablet] 20 mg PO QHS 01/24/20 Multivitamin [Tab-A-Pilar (Multiple Vitamin) Tablet] 1 tab PO DAILY 01/24/20 Magnesium Oxide 400 mg PO QHS 02/04/20 Famotidine [Pepcid 20 mg Tablet] 20 mg PO Q12 #60 tablet 02/05/20 Methimazole [Tapazole] 10 mg PO DAILY #30 tablet 02/05/20 Metoprolol Succinate [Toprol Xl] 100 mg PO DAILY #30 tab.er.24h 02/05/20 Ondansetron [Zofran Odt 4 mg Tablet] 4 mg PO Q4HP PRN #30 tab.rapdis 02/05/20 Potassium Chloride [Klor-Con 10 Meq Tablet ER] 10 meq PO BID #60 tablet.er 02/05/20 Rivaroxaban [Xarelto] 20 mg PO DAILY #30 tablet 02/05/20 Allergies/Adverse Reactions: No Known Allergies Allergy (Verified 01/23/20 19:26) Physical Exam Vital Signs: Temp Pulse Resp BP Pulse Ox 96.4 F L 108 H 16 170/97 H 100 04/12/20 06:00 04/11/20 18:00 04/12/20 06:30 04/12/20 06:30 04/12/20 06:30 Intake & Output 04/10/20 04/11/20 04/12/20 06:59 06:59 06:59 Intake Total 324 Output Total 4180 Balance -3856 Weight 103.1 kg Results Laboratory Results: 04/12/20 03:49 04/12/20 03:49 04/11/20 04/11/20 04/11/20 10:05 10:05 10:05 WBC 14.5 H RBC 3.97 Hgb 10.8 L Hct 33.6 L MCV 85 MCH 27.2 MCHC 32.1 RDW 24.3 H Plt Count 287 Seg Neutrophils % 64.8 Carbonic Acid 1.28 HCO3/H2CO3 Ratio 13:1 ABG pH 7.23 L ABG pCO2 42.5 ABG pO2 485.8 H ABG HCO3 17.4 L ABG O2 Saturation 99.8 H ABG Base Excess -9.7 FiO2 100% Sodium 141.8 Potassium 3.1 L Chloride 105 Carbon Dioxide 19 L Anion Gap 18 BUN 12 Creatinine 0.97 Est GFR ( Amer) > 60 Est GFR (Non-Af Amer) Glucose 199 H Lactic Acid Calcium 9.4 Magnesium Total Bilirubin 0.6 AST 363 H Alkaline Phosphatase 109 Total Protein 7.0 Albumin 3.6 Triglycerides Cholesterol LDL Cholesterol Direct VLDL Cholesterol HDL Cholesterol TSH Free T4 Urine Color Urine Appearance Urine pH Ur Specific [place] Urine Protein Urine Glucose (UA) Urine Ketones Urine Blood Urine Nitrite Ur Leukocyte Esterase Urine WBC (Auto) Urine RBC (Auto) 04/11/20 04/11/20 04/11/20 11:18 13:15 14:47 WBC RBC Hgb Hct MCV MCH MCHC RDW Plt Count Seg Neutrophils % Carbonic Acid 1.01 L HCO3/H2CO3 Ratio 18:1 ABG pH 7.37 ABG pCO2 33.4 L ABG pO2 60.0 L ABG HCO3 19.0 L ABG O2 Saturation 90.7 L ABG Base Excess -5.3 FiO2 21% Sodium 142.3 Potassium 2.9 L* Chloride 107 Carbon Dioxide 18 L Anion Gap 17 BUN 14 Creatinine 0.91 Est GFR ( Amer) > 60 Est GFR (Non-Af Amer) Glucose 224 H Lactic Acid Calcium 9.2 Magnesium Total Bilirubin AST Alkaline Phosphatase Total Protein Albumin Triglycerides Cholesterol LDL Cholesterol Direct VLDL Cholesterol HDL Cholesterol TSH Free T4 Urine Color YELLOW Urine Appearance SLIGHTLY-CLOUDY Urine pH 8.0 Ur Specific [place] 1.008 Urine Protein 100 H Urine Glucose (UA) 150 H Urine Ketones NEGATIVE Urine Blood LARGE H Urine Nitrite NEGATIVE Ur Leukocyte Esterase SMALL H Urine WBC (Auto) 31 Urine RBC (Auto) >182 04/11/20 04/11/20 04/11/20 14:47 17:27 18:05 WBC RBC Hgb Hct MCV MCH MCHC RDW Plt Count Seg Neutrophils % Carbonic Acid 1.18 HCO3/H2CO3 Ratio 18:1 ABG pH 7.36 ABG pCO2 39.1 ABG pO2 87.0 ABG HCO3 21.7 ABG O2 Saturation 96.3 ABG Base Excess -3.4 FiO2 21% Sodium Potassium Chloride Carbon Dioxide Anion Gap BUN Creatinine Est GFR ( Amer) Est GFR (Non-Af Amer) Glucose Lactic Acid 5.9 H Calcium Magnesium Total Bilirubin AST Alkaline Phosphatase Total Protein Albumin Triglycerides Cholesterol LDL Cholesterol Direct VLDL Cholesterol HDL Cholesterol TSH 0.48 Free T4 1.02 Urine Color Urine Appearance Urine pH Ur Specific [place] Urine Protein Urine Glucose (UA) Urine Ketones Urine Blood Urine Nitrite Ur Leukocyte Esterase Urine WBC (Auto) Urine RBC (Auto) 04/11/20 04/11/20 04/11/20 20:29 20:29 20:29 WBC RBC Hgb Hct MCV MCH MCHC RDW Plt Count Seg Neutrophils % Carbonic Acid HCO3/H2CO3 Ratio ABG pH ABG pCO2 ABG pO2 ABG HCO3 ABG O2 Saturation ABG Base Excess FiO2 Sodium 141.6 Cancelled Potassium 3.1 L Cancelled Chloride 104 Cancelled Carbon Dioxide 20 L Cancelled Anion Gap 18 Cancelled BUN 14 Cancelled Creatinine 0.78 Cancelled Est GFR ( Amer) > 60 Cancelled Est GFR (Non-Af Amer) Cancelled Glucose 239 H Cancelled Lactic Acid 6.3 H Calcium 9.6 Cancelled Magnesium 2.0 Total Bilirubin AST Alkaline Phosphatase Total Protein Albumin Triglycerides Cholesterol LDL Cholesterol Direct VLDL Cholesterol HDL Cholesterol TSH Free T4 Urine Color Urine Appearance Urine pH Ur Specific [place] Urine Protein Urine Glucose (UA) Urine Ketones Urine Blood Urine Nitrite Ur Leukocyte Esterase Urine WBC (Auto) Urine RBC (Auto) 04/12/20 04/12/20 04/12/20 03:49 03:49 03:49 WBC 18.7 H RBC 4.41 Hgb 11.7 L Hct 36.3 MCV 82 MCH 26.6 L MCHC 32.4 RDW 24.6 H Plt Count 236 Seg Neutrophils % 84.2 H Carbonic Acid HCO3/H2CO3 Ratio ABG pH ABG pCO2 ABG pO2 ABG HCO3 ABG O2 Saturation ABG Base Excess FiO2 Sodium 140.5 Potassium 3.9 Chloride 104 Carbon Dioxide 20 L Anion Gap 17 BUN 14 Creatinine 0.78 Est GFR ( Amer) > 60 Est GFR (Non-Af Amer) Glucose 238 H Lactic Acid Calcium 9.2 Magnesium 2.0 Total Bilirubin AST Alkaline Phosphatase Total Protein Albumin Triglycerides 91 Cholesterol 186.17 LDL Cholesterol Direct 91 VLDL Cholesterol 18.0 HDL Cholesterol 73 TSH 1.11 Free T4 Urine Color Urine Appearance Urine pH Ur Specific [place] Urine Protein Urine Glucose (UA) Urine Ketones Urine Blood Urine Nitrite Ur Leukocyte Esterase Urine WBC (Auto) Urine RBC (Auto) 04/11/20 04/11/20 04/11/20 10:05 10:05 13:26 Creatine Kinase 108 CK-MB (CK-2) 2.25 Troponin I 0.114 Cancelled NT-Pro-B Natriuret Pep Cancelled 04/11/20 04/11/20 04/11/20 14:47 15:48 20:29 Creatine Kinase CK-MB (CK-2) Troponin I 0.979 1.130 1.090 NT-Pro-B Natriuret Pep Impressions: Head CT 04/11/20 10:15 IMPRESSION: NORMAL BRAIN CT WITHOUT CONTRAST. EVIDENCE OF ACUTE STROKE: NO. 04/12/20 03:49 04/12/20 03:49 MCV 82 fl (80-97) 04/12/20 03:49 MCH 26.6 pg (27.0-33.4) L 04/12/20 03:49 MCHC 32.4 g/dL (32.0-36.0) 04/12/20 03:49 RDW 24.6 % (11.5-14.0) H 04/12/20 03:49 Seg Neutrophils % 84.2 % (42-78) H 04/12/20 03:49 Carbonic Acid 1.18 mmol/L (1.05-1.35) 04/11/20 18:05 HCO3/H2CO3 Ratio 18:1 04/11/20 18:05 ABG pH 7.36 (7.35-7.45) 04/11/20 18:05 ABG pCO2 39.1 mmHg (35-45) 04/11/20 18:05 ABG pO2 87.0 mmHg (80-100) 04/11/20 18:05 ABG HCO3 21.7 mmol/L (20-24) 04/11/20 18:05 ABG O2 Saturation 96.3 % (94-98) 04/11/20 18:05 ABG Base Excess -3.4 mmol/L 04/11/20 18:05 FiO2 21% 04/11/20 18:05 Chloride 104 mmol/L (98-107) 04/12/20 03:49 Carbon Dioxide 20 mmol/L (22-30) L 04/12/20 03:49 Anion Gap 17 (5-19) 04/12/20 03:49 Est GFR ( Amer) > 60 (>60) 04/12/20 03:49 Est GFR (Non-Af Amer) Cancelled 04/11/20 20:29 Glucose 238 mg/dL (75-110) H 04/12/20 03:49 Lactic Acid 6.3 mmol/L (0.7-2.1) H 04/11/20 20:29 Calcium 9.2 mg/dL (8.4-10.2) 04/12/20 03:49 Magnesium 2.0 mg/dL (1.6-2.3) 04/12/20 03:49 Total Bilirubin 0.6 mg/dL (0.2-1.3) 04/11/20 10:05 AST 363 U/L (14-36) H 04/11/20 10:05 Alkaline Phosphatase 109 U/L (38-126) 04/11/20 10:05 Total Protein 7.0 g/dL (6.3-8.2) 04/11/20 10:05 Albumin 3.6 g/dL (3.5-5.0) 04/11/20 10:05 Triglycerides 91 mg/dL (<150) 04/12/20 03:49 Cholesterol 186.17 mg/dL (0-200) 04/12/20 03:49 LDL Cholesterol Direct 91 mg/dL (<100) 04/12/20 03:49 VLDL Cholesterol 18.0 mg/dL (10-31) 04/12/20 03:49 HDL Cholesterol 73 mg/dL (>40) 04/12/20 03:49 TSH 1.11 uIU/mL (0.47-4.68) 04/12/20 03:49 Free T4 1.02 ng/dL (0.78-2.19) 04/11/20 14:47 Urine Color YELLOW 04/11/20 11:18 Urine Appearance SLIGHTLY-CLOUDY 04/11/20 11:18 Urine pH 8.0 (5.0-9.0) 04/11/20 11:18 Ur Specific [place] 1.008 04/11/20 11:18 Urine Protein 100 mg/dL (NEGATIVE) H 04/11/20 11:18 Urine Glucose (UA) 150 mg/dL (NEGATIVE) H 04/11/20 11:18 Urine Ketones NEGATIVE mg/dL (NEGATIVE) 04/11/20 11:18 Urine Blood LARGE (NEGATIVE) H 04/11/20 11:18 Urine Nitrite NEGATIVE (NEGATIVE) 04/11/20 11:18 Ur Leukocyte Esterase SMALL (NEGATIVE) H 04/11/20 11:18 Urine WBC (Auto) 31 /HPF 04/11/20 11:18 Urine RBC (Auto) >182 /HPF 04/11/20 11:18 04/11/20 04/11/20 04/11/20 10:05 10:05 13:26 Creatine Kinase 108 CK-MB (CK-2) 2.25 Troponin I 0.114 Cancelled NT-Pro-B Natriuret Pep Cancelled 04/11/20 04/11/20 04/11/20 14:47 15:48 20:29 Creatine Kinase CK-MB (CK-2) Troponin I 0.979 1.130 1.090 NT-Pro-B Natriuret Pep Current Medication List Generic Name Dose Route Start Last Admin Trade Name Freq PRN Reason Stop Dose Admin Enoxaparin Sodium 40 mg 04/12/20 10:00 Enoxaparin Sodium Inj 40 Mg/0.4 Ml Disp.Syrin SUBCUT 05/12/20 09:59 DAILY ASIM Famotidine 20 mg 04/11/20 22:00 04/11/20 22:01 Famotidine Inj/Pf 20 Mg/2 Ml Sdv IV 05/11/20 21:59 20 mg Q12 ASIM Administration Lactated Ringer's 1,000 mls @ 75 mls/hr 04/11/20 11:26 04/12/20 00:59 Lactated Ringers 1000 Ml Iv Soln IV 05/11/20 11:25 75 mls/hr CONTINUOUS PRN Infusion THIS MED IS NOT "PRN" Diltiazem HCl 125 mg in 125 mls @ 0 mls/hr 04/11/20 17:17 04/11/20 17:52 Cardizem Rtu Inj 125 Mg-D5w 125 Ml Premix IV 05/11/20 17:16 5 mg/hr CONTINUOUS PRN 5 mls/hr THIS MED IS NOT "PRN" Administration Protocol Titrate Lidocaine HCl/Dextrose 2,000 mg in 250 mls @ 0 mls/hr 04/12/20 03:16 04/12/20 03:00 Xylocaine Rtu 2 Gm/D5w 250 Ml (8 Mg/Ml) Premx IV 05/12/20 03:15 2 mg/min CONTINUOUS PRN 15 mls/hr THIS MED IS NOT "PRN" Administration Protocol Titrate Lorazepam 0.5 mg 04/11/20 19:09 Lorazepam Inj 2 Mg/1 Ml Vial IV 04/18/20 19:08 Q2HP PRN SEIZURES Sodium Chloride 2.5 ml 04/11/20 14:00 04/11/20 22:01 Normal Saline Flush 2.5 Ml Disp.Syrin IV 05/11/20 13:59 Not Given Q8 ASIM Discontinued Medications Generic Name Dose Route Start Last Admin Trade Name Freq PRN Reason Stop Dose Admin Diltiazem HCl 10 mg 04/11/20 17:45 04/11/20 17:52 Diltiazem Hcl Inj 25 Mg/5 Ml Vial IV 04/11/20 17:46 10 mg NOW ONE Administration Potassium Chloride/Water 20 meq in 50 mls @ 25 mls/hr 04/11/20 11:15 04/11/20 13:25 Potassium Chloride Champ 20 Meq/50 Ml IV 04/11/20 15:14 25 mls/hr Q2H ASIM 25 mls/hr Administration Magnesium Sulfate/Dextrose 1 gm in 100 mls @ 100 mls/hr 04/11/20 14:00 04/11/20 15:46 Magnesium Sulfate Rtu-D5w 1 Gm/100 Ml Premix IV 04/11/20 15:59 100 mls/hr Q1H ASIM 100 mls/hr Administration Potassium Chloride/Water 20 meq in 50 mls @ 25 mls/hr 04/11/20 16:15 04/11/20 19:50 Potassium Chloride Champ 20 Meq/50 Ml IV 04/11/20 20:14 Infused Q2H ASIM Infusion Potassium Chloride/Water Confirm 04/11/20 23:03 04/12/20 01:46 Potassium Chloride Champ 20 Meq/50 Ml Administered 04/11/20 23:04 Not Given Dose 40 meq in 100 mls @ ud IV .STK-MED ONE Potassium Chloride/Water 20 meq in 50 mls @ 25 mls/hr 04/11/20 23:15 04/12/20 03:15 Potassium Chloride Champ 20 Meq/50 Ml IV 04/12/20 03:14 Infused Q2H ASIM Infusion Lidocaine HCl/Dextrose Confirm 04/12/20 02:51 04/12/20 04:08 Xylocaine Rtu 2 Gm/D5w 250 Ml (8 Mg/Ml) Premx Administered 04/12/20 02:52 Not Given Dose 2,000 mg in 250 mls @ ud IV .STK-MED ONE Lidocaine HCl 100 mg 04/12/20 03:30 04/12/20 03:00 Lidocaine 2% Inj-Pf (100 Mg/5 Ml) Syringe IV 04/12/20 03:31 100 mg NOW ONE Administration Metoprolol Tartrate 2.5 mg 04/11/20 14:30 04/11/20 14:29 Metoprolol Tartrate Pf/Inj 5 Mg/5 Ml Sdv IV 04/11/20 14:31 2.5 mg NOW ONE Administration Norepinephrine Bitartrate Confirm 04/11/20 11:12 04/11/20 11:15 Norepinephrine Bitartrate Inj/Pf 4 Mg/4 Ml Sdv Administered 04/11/20 11:13 Not Given Dose 4 mg IV .STK-MED ONE Rocuronium [place] 80 mg 04/11/20 10:16 04/11/20 10:09 Rocuronium [place] Inj 50 Mg/5 Ml Vial IV 04/11/20 10:17 80 mg NOW ONE Administration Assessment & Plan - Diagnosis (1) Cardiac arrest Plan: Very unfortunate 64-year-old lady status post cardiac arrest found down at least 20 minutes after the index event. Her echocardiogram demonstrated a depressed ejection fraction when compared to a prior study in early January 2020 and her cardiac troponins are mildly elevated likely secondary to her cardiovascular event. She has had multiple episodes of ventricular tachycardia throughout the night and at one point she coded again. Her neurological status is poor and her prognosis is also very poor. Unfortunately cardiology does not have much to offer given her current condition and future cardiovascular interventions/recommendations depend on her neurological status. To complicate matters, the nursing staff reported to me this morning that efforts to get in touch with family members had been unsuccessful. Recommendations: -Amiodarone IV loading per protocol to treat her ventricular tachycardia, switch to amiodarone using OG tube when IV infusion completed. -Continue to replace electrolytes as needed. -Restart outpatient medical therapy to include beta-aniceto. -Cardiology will sign off the case for now, please reconsult if any clinically indicated particularly if there is any recovery in her neurological status.
--- NOTE | 2020-04-12 08:20 | RADIOLOGY REPORT (SQ) ---
EXAM DESCRIPTION: CHEST SINGLE VIEW IMAGES COMPLETED DATE/TIME: 04/12/2020 6:37 am REASON FOR STUDY: acute resp. failure COMPARISON: 04/11/2020. EXAM PARAMETERS: NUMBER OF VIEWS: One view. TECHNIQUE: Single frontal radiographic view of the chest acquired. RADIATION DOSE: NA LIMITATIONS: None. FINDINGS: LUNGS AND PLEURA: Streaky densities in the left lung base, improved aeration. Right lung clear. No pleural effusion. MEDIASTINUM AND HILAR STRUCTURES: No masses. Contour normal. HEART AND VASCULAR STRUCTURES: Heart normal in size. Normal vasculature. BONES: No acute findings. Degenerative changes in the spine. HARDWARE: Stable endotracheal tube and nasogastric tube. OTHER: No other significant finding. IMPRESSION: IMPROVED AERATION IN THE LEFT LUNG BASE. TECHNICAL DOCUMENTATION: JOB ID: [id number] [employer]- All Rights Reserved Reading location - IP/workstation name: [email or web address]
[2020-04-12] MEDS: HYDRALAZINE HCL INJ/PF 20 MG/1 ML SDV IV PRN (08:38)
[2020-04-12] MEDS: FAMOTIDINE INJ/PF 20 MG/2 ML SDV IV SCH ×2 (09:13→21:07)
[2020-04-12] MEDS: ENOXAPARIN SODIUM INJ 40 MG/0.4 ML DISP.SYRIN SUBCUT SCH (09:13)
[2020-04-12] MEDS ORDERED: AMIODARONE HCL INJ 150 MG/3 ML VIAL IV ONE (12:12)
[2020-04-12 12:31] LABS: ANION GAP 15 (5-19); BLOOD UREA NITROGEN 15 mg/dL (7-20); CALCIUM 9.7 mg/dL (8.4-10.2); CARBON DIOXIDE 22 mmol/L (22-30); CHLORIDE 105 mmol/L (98-107); GLUCOSE 176 mg/dL (75-110); POTASSIUM 3.4 mmol/L (3.6-5.0)
[2020-04-12] MEDS: MAGNESIUM SULFATE/D5W 1 GM/100 ML RTUPB IV SCH ×2 (12:31→13:32)
[2020-04-12] MEDS: DEXTROSE 5%-WATER 500 ML with AMIODARONE HCL 900 MG IV PRN ×2 (12:31)
[2020-04-12] MEDS ORDERED: AMIODARONE HCL 150 MG in DEXTROSE 5%-WATER 100 ML IV ONE (12:45)
--- NOTE | 2020-04-12 14:19 | PDOC CRITICAL CARE PROG REPORT ---
General Date:: 04/12/20 ICU Day:: 2 Ventilator Day:: 2 Hospital Day:: 2 Events in the past 12 to 24 Hours:: 04/12 The patient was admitted yesterday after sustaining a cardiac arrest at home. She was in V fib at the time. the patient has no known previosu history of cardiac disease. Her down time was estimated at least 20 minutes before ROSC. Since admission she has been cooled on the ventilator for neuroprotection. She did develop recurrent V tach and needed defibrillation overnight. The patient remains comatose at this time. Her initial ECG did not suggest an acute SD. Her second ECG showed ST depression in the precordial leada and a prolonged QT interval. Her toxicology screen was negative on admission. I asked cvardiology tosee thepatient but we must see what her neuro stus is before considering incvasive cardiac evaluation. Reason for ICU Addmission:: S/P cardiac Arrest. Physical Exam Vital Signs: Temp Pulse Resp BP Pulse Ox 95.7 F L 108 H 16 170/97 H 100 04/12/20 08:00 04/11/20 18:00 04/12/20 06:30 04/12/20 06:30 04/12/20 13:34 Intake & Output 04/11/20 04/12/20 04/13/20 06:59 06:59 06:59 Intake Total 324 Output Total 4180 300 Balance -3856 -300 Weight 103.1 kg Weight/Height Weight 103.1 kg Height 5 ft 8 in Laboratory/Radiographs Laboratory Results: 04/12/20 03:49 04/12/20 12:08 04/11/20 04/11/20 04/11/20 14:47 14:47 17:27 WBC RBC Hgb Hct MCV MCH MCHC RDW Plt Count Seg Neutrophils % Carbonic Acid HCO3/H2CO3 Ratio ABG pH ABG pCO2 ABG pO2 ABG HCO3 ABG O2 Saturation ABG Base Excess FiO2 Sodium 142.3 Potassium 2.9 L* Chloride 107 Carbon Dioxide 18 L Anion Gap 17 BUN 14 Creatinine 0.91 Est GFR ( Amer) > 60 Est GFR (Non-Af Amer) Glucose 224 H Lactic Acid 5.9 H Calcium 9.2 Magnesium Triglycerides Cholesterol LDL Cholesterol Direct VLDL Cholesterol HDL Cholesterol TSH 0.48 Free T4 1.02 11/20/20 11/20/20 11/20/20 18:05 20:29 20:29 WBC RBC Hgb Hct MCV MCH MCHC RDW Plt Count Seg Neutrophils % Carbonic Acid 1.18 HCO3/H2CO3 Ratio 18:1 ABG pH 7.36 ABG pCO2 39.1 ABG pO2 87.0 ABG HCO3 21.7 ABG O2 Saturation 96.3 ABG Base Excess -3.4 FiO2 21% Sodium 141.6 Potassium 3.1 L Chloride 104 Carbon Dioxide 20 L Anion Gap 18 BUN 14 Creatinine 0.78 Est GFR ( Amer) > 60 Est GFR (Non-Af Amer) Glucose 239 H Lactic Acid 6.3 H Calcium 9.6 Magnesium Triglycerides Cholesterol LDL Cholesterol Direct VLDL Cholesterol HDL Cholesterol TSH Free T4 04/11/20 04/12/20 04/12/20 20:29 03:49 03:49 WBC 18.7 H RBC 4.41 Hgb 11.7 L Hct 36.3 MCV 82 MCH 26.6 L MCHC 32.4 RDW 24.6 H Plt Count 236 Seg Neutrophils % 84.2 H Carbonic Acid HCO3/H2CO3 Ratio ABG pH ABG pCO2 ABG pO2 ABG HCO3 ABG O2 Saturation ABG Base Excess FiO2 Sodium Cancelled 140.5 Potassium Cancelled 3.9 Chloride Cancelled 104 Carbon Dioxide Cancelled 20 L Anion Gap Cancelled 17 BUN Cancelled 14 Creatinine Cancelled 0.78 Est GFR ( Amer) Cancelled > 60 Est GFR (Non-Af Amer) Cancelled Glucose Cancelled 238 H Lactic Acid Calcium Cancelled 9.2 Magnesium 2.0 2.0 Triglycerides 91 Cholesterol 186.17 LDL Cholesterol Direct 91 VLDL Cholesterol 18.0 HDL Cholesterol 73 TSH Free T4 04/12/20 04/12/20 03:49 12:08 WBC RBC Hgb Hct MCV MCH MCHC RDW Plt Count Seg Neutrophils % Carbonic Acid HCO3/H2CO3 Ratio ABG pH ABG pCO2 ABG pO2 ABG HCO3 ABG O2 Saturation ABG Base Excess FiO2 Sodium 141.6 Potassium 3.4 L Chloride 105 Carbon Dioxide 22 Anion Gap 15 BUN 15 Creatinine 0.78 Est GFR ( Amer) > 60 Est GFR (Non-Af Amer) Glucose 176 H Lactic Acid Calcium 9.7 Magnesium Triglycerides Cholesterol LDL Cholesterol Direct VLDL Cholesterol HDL Cholesterol TSH 1.11 Free T4 04/11/20 04/11/20 04/11/20 10:05 10:05 13:26 Creatine Kinase 108 CK-MB (CK-2) 2.25 Troponin I 0.114 Cancelled NT-Pro-B Natriuret Pep Cancelled 04/11/20 04/11/20 04/11/20 14:47 15:48 20:29 Creatine Kinase CK-MB (CK-2) Troponin I 0.979 1.130 1.090 NT-Pro-B Natriuret Pep Impressions: Head CT 04/11/20 10:15 IMPRESSION: NORMAL BRAIN CT WITHOUT CONTRAST. EVIDENCE OF ACUTE STROKE: NO. Chest X-Ray 04/12/20 06:00 IMPRESSION: IMPROVED AERATION IN THE LEFT LUNG BASE. Assessment and Plan - Diagnosis (1) Acute respiratory failure Is this a current diagnosis for this admission?: Yes Plan: The patient had to be intuabted at the time of her cardiac arrest. There is ? retrocardiac infiltrate (2) Cardiac arrest Is this a current diagnosis for this admission?: Yes Plan: The patient had a V fib cardiac arrest. QT interval was long normal. Her initial serum K was low at 3.1. Her peak trop was 1.13. Her ECHO shos a LVEF of 40-45% ( little changed 02/09). there was mild global hypokinesis. The casue of her cardiac arrest remains unclear (3) Ventricular tachycardia (paroxysmal) Is this a current diagnosis for this admission?: Yes Plan: The patient has had episodes of recurrent V tach. Was loaded and placed on an amiodarone drip today. Overnight thepatient di get a bolus of lidocainer. She was reboluses after recurrent V tachand started on a lidocaine drip. Critical Time Critical Time (minutes): 45 Level of Care: ICU -: 1. The care of a critical patient is a dynamic process. This note is a pharmacy services representative synopsis but static in nature. The timeframe for treatments given in order is not necessarily the actual time these treatments may have been done. 2. This patient requires critical care secondary to ongoing requirements for therapy not offered or safe outside the critical care environment. Transfer to a lower level of care will result in altered life or limb morbidity and mortality. 3. Multidisciplinary rounds completed. 4. ABCDE bundle addressed.
[2020-04-12] MEDS: RINGERS SOLUTION,LACTATED 1,000 ML IV PRN (14:55)
[2020-04-12 16:19] LABS: ARTERIAL BLOOD BASE EXCESS 1.3 mmol/L; ARTERIAL BLOOD H2CO3 0.92 mmol/L (1.05-1.35); ARTERIAL BLOOD HCO3 23.6 mmol/L (20-24); ARTERIAL BLOOD O2 SATURATION 97.4 % (94-98); ARTERIAL BLOOD PCO2 30.4 mmHg (35-45); ARTERIAL BLOOD PH 7.51 (7.35-7.45); ARTERIAL BLOOD PO2 86.8 mmHg (80-100); ARTERIAL BLOOD TOTAL CO2 24.5 mmol/L (21-25)
[2020-04-12 16:20] LABS: ARTERIAL BLOOD FIO2 21%
[2020-04-12 18:07] LABS: ANION GAP 11 (5-19); BLOOD UREA NITROGEN 14 mg/dL (7-20); CALCIUM 9.5 mg/dL (8.4-10.2); CARBON DIOXIDE 23 mmol/L (22-30); CHLORIDE 104 mmol/L (98-107); GLUCOSE 170 mg/dL (75-110); POTASSIUM 3.4 mmol/L (3.6-5.0)
[2020-04-12] MEDS: LIDOCAINE HCL/D5W/PF 2,000 MG/250 ML RTUINJ IV PRN (21:08)
[2020-04-13 00:01] LABS: ANION GAP 14 (5-19); BLOOD UREA NITROGEN 16 mg/dL (7-20); CALCIUM 9.3 mg/dL (8.4-10.2); CARBON DIOXIDE 23 mmol/L (22-30); CHLORIDE 103 mmol/L (98-107); GLUCOSE 168 mg/dL (75-110); POTASSIUM 3.4 mmol/L (3.6-5.0)
[2020-04-13] MEDS: RINGERS SOLUTION,LACTATED 1,000 ML IV PRN (03:43)
[2020-04-13] MEDS ORDERED: AMIODARONE HCL INJ 150 MG/3 ML VIAL IV ONE (04:27)
[2020-04-13] MEDS: DEXTROSE 5%-WATER 500 ML with AMIODARONE HCL 900 MG IV PRN ×2 (04:39)
[2020-04-13 07:35] LABS: ABSOLUTE LYMPHOCYTES (AUTO) 1.5 10^3/uL (0.5-4.7); ABSOLUTE MONOCYTES (AUTO) 1.2 10^3/uL (0.1-1.4); ABSOLUTE NEUT (AUTO) 16.4 10^3/uL (1.7-8.2); BASOPHILS % (AUTO) 0.2 % (0-2); EOSINOPHILS % (AUTO) 0.1 % (0-6); HEMATOCRIT 35.5 % (36.0-47.0); HEMOGLOBIN 11.6 g/dL (12.0-15.5); LYMPHOCYTES % (AUTO) 7.7 % (13-45); MEAN CORPUSCULAR HEMOGLOBIN 26.7 pg (27.0-33.4); MEAN CORPUSCULAR HGB CONC 32.8 g/dL (32.0-36.0); MEAN CORPUSCULAR VOLUME 81 fl (80-97); MONOCYTES % (AUTO) 6.4 % (3-13); PLATELET COUNT 233 10^3/uL (150-450); RED BLOOD COUNT 4.37 10^6/uL (3.72-5.28); RED CELL DISTRIBUTION WIDTH 24.6 % (11.5-14.0); SEGMENTED NEUTROPHILS % (AUTO) 85.6 % (42-78); TOTAL CELLS COUNTED % (AUTO) 100 %; WHITE BLOOD COUNT 19.1 10^3/uL (4.0-10.5)
[2020-04-13 08:10] LABS: ANISOCYTOSIS 3+; BURR CELLS SLIGHT; OVALOCYTES SLIGHT; PLATELET COMMENT ADEQUATE; PLATELET LARGE PRESENT; POLYCHROMASIA SLIGHT; TOXIC VACUOLATION PRESENT
[2020-04-13 08:50] LABS: ANION GAP 13 (5-19); BLOOD UREA NITROGEN 15 mg/dL (7-20); CALCIUM 9.2 mg/dL (8.4-10.2); CARBON DIOXIDE 22 mmol/L (22-30); CHLORIDE 100 mmol/L (98-107); GLUCOSE 199 mg/dL (75-110); POTASSIUM 3.7 mmol/L (3.6-5.0)
--- NOTE | 2020-04-13 09:01 | RADIOLOGY REPORT (SQ) ---
EXAM DESCRIPTION: CHEST SINGLE VIEW IMAGES COMPLETED DATE/TIME: 04/13/2020 6:58 am REASON FOR STUDY: acute resp. failure COMPARISON: 04/12/2020 NUMBER OF VIEWS: One view. TECHNIQUE: Single frontal radiographic image of the chest acquired. LIMITATIONS: None. FINDINGS: ENDOTRACHEAL TUBE: Appropriate location. OTHER SUPPORT DEVICES: Nasogastric catheter stable. CHANGES IN RADIOGRAPHIC FINDINGS: None. Stable appearance. HARDWARE: None in the chest. OTHER: No other significant finding. IMPRESSION: STABLE APPEARANCE OF THE CHEST. TECHNICAL DOCUMENTATION: JOB ID: [id number] [id number] 2010 [employer]- All Rights Reserved Reading location - IP/workstation name: [email or web address]
[2020-04-13] MEDS: ENOXAPARIN SODIUM INJ 40 MG/0.4 ML DISP.SYRIN SUBCUT SCH (10:39)
[2020-04-13] MEDS: FAMOTIDINE INJ/PF 20 MG/2 ML SDV IV SCH ×2 (10:39→21:29)
[2020-04-13 11:02] LABS: ARTERIAL BLOOD BASE EXCESS -0.2 mmol/L; ARTERIAL BLOOD H2CO3 0.91 mmol/L (1.05-1.35); ARTERIAL BLOOD HCO3 22.4 mmol/L (20-24); ARTERIAL BLOOD O2 SATURATION 97.4 % (94-98); ARTERIAL BLOOD PCO2 30.1 mmHg (35-45); ARTERIAL BLOOD PH 7.49 (7.35-7.45); ARTERIAL BLOOD PO2 87.5 mmHg (80-100); ARTERIAL BLOOD TOTAL CO2 23.3 mmol/L (21-25)
[2020-04-13 11:03] LABS: ARTERIAL BLOOD FIO2 21%
--- NOTE | 2020-04-13 12:13 | PDOC CRITICAL CARE PROG REPORT ---
General Date:: 04/13/20 ICU Day:: 3 Ventilator Day:: 3 Hospital Day:: 3 Resuscitation Status: Full Code Events in the past 12 to 24 Hours:: 04/12 The patient was admitted yesterday after sustaining a cardiac arrest at home. She was in V fib at the time. the patient has no known previosu history of cardiac disease. Her down time was estimated at least 20 minutes before ROSC. Since admission she has been cooled on the ventilator for neuroprotection. She did develop recurrent V tach and needed defibrillation overnight. The patient remains comatose at this time. Her initial ECG did not suggest an acute UT. Her second ECG showed ST depression in the precordial leads and a prolonged QT interval. Her toxicology screen was negative on admission. I asked cardiology to see the patient but we must see what her neuro status is before considering invasive cardiac evaluation. 04/13 The patient had a couple of episoides of V tach . Had one episode two nights agoa and one sustained yesterday. the poatient is on Amidarone 1mg/min after bolus of 150mg anf on Lidocaine 2mg/min after a 75 mg bolus. Has not had any serious arrhythmia for at least 16 hours now. Will start tapering the amiod drip[. The patient shows no sign of waking up presently. lies in bed with closed eyes and no movement. Pupils are about 2mm , midline and don't appear reactive.. Reason for ICU Addmission:: S/P cardiac Arrest. Physical Exam Vital Signs: Temp Pulse Resp BP Pulse Ox 97.9 F 73 15 145/93 H 100 04/13/20 11:14 04/12/20 14:00 04/13/20 11:41 04/13/20 11:41 04/13/20 11:21 Intake & Output 04/12/20 04/13/20 04/14/20 06:59 06:59 06:59 Intake Total 324 2786 Output Total 4180 1310 45 Balance -3856 1476 -45 Weight 103.1 kg 105.4 kg Weight/Height Weight 105.4 kg Height 5 ft 8 in Laboratory/Radiographs Laboratory Results: 04/13/20 07:08 04/13/20 07:08 04/12/20 04/12/20 04/12/20 12:08 16:02 17:38 WBC RBC Hgb Hct MCV MCH MCHC RDW Plt Count Seg Neutrophils % Carbonic Acid 0.92 L HCO3/H2CO3 Ratio 25:1 ABG pH 7.51 H ABG pCO2 30.4 L ABG pO2 86.8 ABG HCO3 23.6 ABG O2 Saturation 97.4 ABG Base Excess 1.3 FiO2 21% Sodium 141.6 138.2 Potassium 3.4 L 3.4 L Chloride 105 104 Carbon Dioxide 22 23 Anion Gap 15 11 BUN 15 14 Creatinine 0.78 0.71 Est GFR ( Amer) > 60 > 60 Glucose 176 H 170 H Calcium 9.7 9.5 04/12/20 04/13/20 04/13/20 23:38 07:08 07:08 WBC 19.1 H RBC 4.37 Hgb 11.6 L Hct 35.5 L MCV 81 MCH 26.7 L MCHC 32.8 RDW 24.6 H Plt Count 233 Seg Neutrophils % 85.6 H Carbonic Acid HCO3/H2CO3 Ratio ABG pH ABG pCO2 ABG pO2 ABG HCO3 ABG O2 Saturation ABG Base Excess FiO2 Sodium 139.6 135.4 L Potassium 3.4 L 3.7 Chloride 103 100 Carbon Dioxide 23 22 Anion Gap 14 13 BUN 16 15 Creatinine 0.85 0.88 Est GFR ( Amer) > 60 > 60 Glucose 168 H 199 H Calcium 9.3 9.2 04/13/20 10:41 WBC RBC Hgb Hct MCV MCH MCHC RDW Plt Count Seg Neutrophils % Carbonic Acid 0.91 L HCO3/H2CO3 Ratio 24:1 ABG pH 7.49 H ABG pCO2 30.1 L ABG pO2 87.5 ABG HCO3 22.4 ABG O2 Saturation 97.4 ABG Base Excess -0.2 FiO2 21% Sodium Potassium Chloride Carbon Dioxide Anion Gap BUN Creatinine Est GFR ( Amer) Glucose Calcium 04/11/20 04/11/20 04/11/20 10:05 10:05 13:26 Creatine Kinase 108 CK-MB (CK-2) 2.25 Troponin I 0.114 Cancelled NT-Pro-B Natriuret Pep Cancelled 04/11/20 04/11/20 04/11/20 14:47 15:48 20:29 Creatine Kinase CK-MB (CK-2) Troponin I 0.979 1.130 1.090 NT-Pro-B Natriuret Pep Impressions: Head CT 04/11/20 10:15 IMPRESSION: NORMAL BRAIN CT WITHOUT CONTRAST. EVIDENCE OF ACUTE STROKE: NO. Chest X-Ray 04/13/20 06:00 IMPRESSION: STABLE APPEARANCE OF THE CHEST. Assessment and Plan - Diagnosis (1) Acute respiratory failure Is this a current diagnosis for this admission?: Yes Plan: The patient had to be intuabted at the time of her cardiac arrest. There is ? retrocardiac infiltrate. 04/13 Ther patient remains on mechanical ventialtionand is not waking up CXR appears clear. On 21% FI02 with good sats. (2) Cardiac arrest Is this a current diagnosis for this admission?: Yes Plan: The patient had a V fib cardiac arrest. QT interval was long normal. Her initial serum K was low at 3.1. Her peak trop was 1.13. Her ECHO shows a LVEF of 40-45% ( little changed 02/09). there was mild global hypokinesis. The cause of her cardiac arrest remains unclear. 04/13 The patient has not arrested again. The cause oif her recurrent arrhythmia is unclear. Her peak trop was only 1.13. Her toxicology screeen was negative. (3) Ventricular tachycardia (paroxysmal) Is this a current diagnosis for this admission?: Yes Plan: The patient has had episodes of recurrent V tach. Was loaded and placed on an amiodarone drip today. Overnight thepatient di get a bolus of lidocainer. She was reboluses after recurrent V tachand started on a lidocaine drip. 04/13 Patient on Lidocaine and amiod. infusions. (4) Atrial fibrillation with rapid ventricular response Is this a current diagnosis for this admission?: Yes Plan: no further evidence inlast 2 days of atrial fib. Plan Summary: her otlook appears poor given her poor neuro status 3 days post-arrest. Critical Time Critical Time (minutes): 35 Level of Care: ICU -: 1. The care of a critical patient is a dynamic process. This note is a sales representative business courses synopsis but static in nature. The timeframe for treatments g iven in order is not necessarily the actual time these treatments may have been done. 2. This patient requires critical care secondary to ongoing requirements for therapy not offered or safe outside the critical care environment. Transfer to a lower level of care will result in altered life or limb morbidity and mortality. 3. Multidisciplinary rounds completed. 4. ABCDE bundle addressed.
[2020-04-13] MEDS: LIDOCAINE HCL/D5W/PF 2,000 MG/250 ML RTUINJ IV PRN (15:05)
[2020-04-13] MEDS: SCOPOLAMINE HYDROBROMIDE 1.5 MG PATCH.TD72 TD SCH (17:50)
--- NOTE | 2020-04-13 21:57 | CDI QUERY ---
CDI Query CDI Review: We are seeking further clarification of documentation to reflect the severity of illness of your patient. Per ED Notes: Cardiac Medical History: Reports: Hx Atrial Fibrillation, Per Wool And Pelt Grader Notes: BENITO CUENCA is a 64 year old female with history of hypertension, paroxysmal atrial fibrillation with her first episode in January 2020, .. Per Critical Care Notes: Atrial fibrillation with rapid ventricular response Is this a current diagnosis for this admission?: Yes Plan: no further evidence in last 2 days of atrial fib. Based on your medical judgement, can you further clarify in the Progress Notes if the Atrial Fibrillation can be further specified: Persistent Atrial fibrillation Chronic (Permanent) Atrial fibrillation Other Unable to determine Thank you for your consideration. HALIMA CarbajalN RN Clinical Concentrator Operator Physician Advisor
[2020-04-14] MEDS: RINGERS SOLUTION,LACTATED 1,000 ML IV PRN ×2 (00:47→18:07)
[2020-04-14] MEDS: DEXTROSE 5%-WATER 500 ML with AMIODARONE HCL 900 MG IV PRN ×2 (03:42)
[2020-04-14 06:00] LABS: ARTERIAL BLOOD BASE EXCESS 0.3 mmol/L; ARTERIAL BLOOD H2CO3 1.06 mmol/L (1.05-1.35); ARTERIAL BLOOD HCO3 23.9 mmol/L (20-24); ARTERIAL BLOOD O2 SATURATION 94.6 % (94-98); ARTERIAL BLOOD PCO2 35.3 mmHg (35-45); ARTERIAL BLOOD PH 7.45 (7.35-7.45); ARTERIAL BLOOD PO2 68.8 mmHg (80-100)
[2020-04-14 06:03] LABS: ARTERIAL BLOOD FIO2 21%
--- NOTE | 2020-04-14 07:59 | PDOC CRITICAL CARE PROG REPORT ---
General Date:: 04/14/20 ICU Day:: 3 Ventilator Day:: 3 Hospital Day:: 3 Resuscitation Status: Full Code Events in the past 12 to 24 Hours:: 04/12 The patient was admitted yesterday after sustaining a cardiac arrest at home. She was in V fib at the time. the patient has no known previosu history of cardiac disease. Her down time was estimated at least 20 minutes before ROSC. Since admission she has been cooled on the ventilator for neuroprotection. She did develop recurrent V tach and needed defibrillation overnight. The patient remains comatose at this time. Her initial ECG did not suggest an acute MO. Her second ECG showed ST depression in the precordial leads and a prolonged QT interval. Her toxicology screen was negative on admission. I asked cardiology to see the patient but we must see what her neuro status is before considering invasive cardiac evaluation. 04/13 The patient had a couple of episoides of V tach . Had one episode two nights agoa and one sustained yesterday. the poatient is on Amidarone 1mg/min after bolus of 150mg anf on Lidocaine 2mg/min after a 75 mg bolus. Has not had any serious arrhythmia for at least 16 hours now. Will start tapering the amiod drip[. The patient shows no sign of waking up presently. lies in bed with closed eyes and no movement. Pupils are about 2mm , midline and don't appear reactive.. 04/14. Off lidocaine. No purposeful movements neurologically. Review of systems relevant to events:: eurological, CV. Reason for ICU Addmission:: S/P cardiac Arrest. VF, intubated. - Medications: Medications reviewed and adjusted accordingly: Yes Vasopressors:: None. Sedation:: None. Physical Exam Vital Signs: Temp Pulse Resp BP Pulse Ox 36.9 F L 77 16 149/85 H 98 04/14/20 06:00 04/13/20 19:00 04/14/20 06:07 04/14/20 06:07 04/14/20 06:07 Intake & Output 04/13/20 04/14/20 04/15/20 06:59 06:59 06:59 Intake Total 2786 1956 Output Total 1310 390 Balance 1476 1566 Weight 105.4 kg 107.3 kg Weight/Height Weight 107.3 kg Height 5 ft 8 in General appearance: PRESENT: no acute distress Head exam: PRESENT: atraumatic, normocephalic Eye exam: PRESENT: conjunctiva pink, EOMI, PERRLA. ABSENT: scleral icterus Ear exam: PRESENT: normal external ear exam Mouth exam: PRESENT: moist, tongue midline Respiratory exam: PRESENT: clear to auscultation sayda. ABSENT: rales, rhonchi, wheezes Cardiovascular exam: PRESENT: RRR. ABSENT: diastolic murmur, rubs, systolic murmur GI/Abdominal exam: PRESENT: normal bowel sounds, soft. ABSENT: distended, guarding, mass, organolmegaly, rebound, tenderness Rectal exam: PRESENT: deferred Gentrourinary exam: PRESENT: indwelling catheter Extremities exam: PRESENT: full ROM. ABSENT: calf tenderness, clubbing, pedal edema Musculoskeletal exam: PRESENT: normal inspection Neurological exam: PRESENT: other - There is no response to voice, pain, no doll's eyes response. Said to move mouth occassionally. Skin exam: PRESENT: dry, intact, warm. ABSENT: cyanosis, rash Tubes/Lines: PRESENT: Endotracheal Tube, Nasogastic Tube Laboratory/Radiographs Laboratory Results: 04/13/20 07:08 04/13/20 07:08 04/13/20 04/13/20 04/13/20 07:08 07:08 10:41 WBC 19.1 H RBC 4.37 Hgb 11.6 L Hct 35.5 L MCV 81 MCH 26.7 L MCHC 32.8 RDW 24.6 H Plt Count 233 Seg Neutrophils % 85.6 H Carbonic Acid 0.91 L HCO3/H2CO3 Ratio 24:1 ABG pH 7.49 H ABG pCO2 30.1 L ABG pO2 87.5 ABG HCO3 22.4 ABG O2 Saturation 97.4 ABG Base Excess -0.2 FiO2 21% Sodium 135.4 L Potassium 3.7 Chloride 100 Carbon Dioxide 22 Anion Gap 13 BUN 15 Creatinine 0.88 Est GFR ( Amer) > 60 Glucose 199 H Calcium 9.2 04/14/20 05:20 WBC RBC Hgb Hct MCV MCH MCHC RDW Plt Count Seg Neutrophils % Carbonic Acid 1.06 HCO3/H2CO3 Ratio 22:1 ABG pH 7.45 ABG pCO2 35.3 ABG pO2 68.8 L ABG HCO3 23.9 ABG O2 Saturation 94.6 ABG Base Excess 0.3 FiO2 21% Sodium Potassium Chloride Carbon Dioxide Anion Gap BUN Creatinine Est GFR ( Amer) Glucose Calcium 04/11/20 04/11/20 04/11/20 10:05 10:05 13:26 Creatine Kinase 108 CK-MB (CK-2) 2.25 Troponin I 0.114 Cancelled NT-Pro-B Natriuret Pep Cancelled 04/11/20 04/11/20 04/11/20 14:47 15:48 20:29 Creatine Kinase CK-MB (CK-2) Troponin I 0.979 1.130 1.090 NT-Pro-B Natriuret Pep Impressions: Head CT 04/11/20 10:15 IMPRESSION: NORMAL BRAIN CT WITHOUT CONTRAST. EVIDENCE OF ACUTE STROKE: NO. All labs, radiographs, diagnostic studies and EKGs were personally reviewed: Yes In addition, reports of radiographic and diagnostic studies were read: Yes Assessment and Plan - Diagnosis (1) Cardiac arrest Is this a current diagnosis for this admission?: Yes Plan: Origannly seen with VT/VF. She obtained ROSC it was said after 20 minutes. This could explain what seems to be her neurologic injury. Off lidocaine, weaning amiodarone. Mild hypokalemia resolved. Due to her neurologic status she is not a candidate for an EP study now. (2) Ventricular tachycardia (paroxysmal) Is this a current diagnosis for this admission?: Yes Plan: As above. No recurrrance. (3) Atrial fibrillation with rapid ventricular response Is this a current diagnosis for this admission?: No Plan: This is a relatively new diagnosis. It seems to be paroxysmal, but not on this admission. (4) Hyperthyroidism Is this a current diagnosis for this admission?: Yes Plan: Also a relatively new diagnosis which may have effected her VF/VT as well. (5) Hypokalemia Is this a current diagnosis for this admission?: Yes Plan: Level 3.1-2.9 on admission and may have played a role in VT. Plan Summary: Continue support for now. Check EEG but expect there to be major neurologic injury. Critical Time Critical Time (minutes): 40 Level of Care: ICU Anticipated discharge: Hospice Anticipated DC Timeframe: Other -: 1. The care of a critical patient is a dynamic process. This note is a uniforms sales representative synopsis but static in nature. The timeframe for treatments given in order is not necessarily the actual time these treatments may have been done. 2. This patient requires critical care secondary to ongoing requirements for therapy not offered or safe outside the critical care environment. Transfer to a lower level of care will result in altered life or limb morbidity and mortality. 3. Multidisciplinary rounds completed. 4. ABCDE bundle addressed.
--- NOTE | 2020-04-14 08:12 | RADIOLOGY REPORT (SQ) ---
EXAM DESCRIPTION: CHEST SINGLE VIEW IMAGES COMPLETED DATE/TIME: 04/14/2020 6:48 am REASON FOR STUDY: acute resp. failure COMPARISON: 04/13/2020 NUMBER OF VIEWS: One view. TECHNIQUE: Single frontal radiographic image of the chest acquired. LIMITATIONS: None. FINDINGS: LUNGS AND PLEURA: Stable appearance. MEDIASTINUM AND HILAR STRUCTURES: Stable heart size and mediastinal structures. HEART AND VASCULAR STRUCTURES: Stable appearance. SUPPORT DEVICES: Appropriate location without change. BONES: No acute findings. OTHER: No other significant finding. IMPRESSION: STABLE APPEARANCE OF THE CHEST. SUPPORT DEVICES UNCHANGED. TECHNICAL DOCUMENTATION: JOB ID: [id number] 2010 [employer]- All Rights Reserved Reading location - IP/workstation name: [email or web address]
[2020-04-14] MEDS: FAMOTIDINE INJ/PF 20 MG/2 ML SDV IV SCH ×2 (09:10→21:40)
[2020-04-14] MEDS: ENOXAPARIN SODIUM INJ 40 MG/0.4 ML DISP.SYRIN SUBCUT SCH (09:10)
[2020-04-14 10:41] LABS: ABSOLUTE LYMPHOCYTES (AUTO) 1.5 10^3/uL (0.5-4.7); ABSOLUTE MONOCYTES (AUTO) 0.9 10^3/uL (0.1-1.4); ABSOLUTE NEUT (AUTO) 14.4 10^3/uL (1.7-8.2); BASOPHILS % (AUTO) 0.3 % (0-2); HEMATOCRIT 34.3 % (36.0-47.0); HEMOGLOBIN 11.4 g/dL (12.0-15.5); LYMPHOCYTES % (AUTO) 8.8 % (13-45); MEAN CORPUSCULAR HEMOGLOBIN 27.2 pg (27.0-33.4); MEAN CORPUSCULAR HGB CONC 33.3 g/dL (32.0-36.0); MEAN CORPUSCULAR VOLUME 82 fl (80-97); MONOCYTES % (AUTO) 5.3 % (3-13); PLATELET COUNT 191 10^3/uL (150-450); RED CELL DISTRIBUTION WIDTH 24.8 % (11.5-14.0); SEGMENTED NEUTROPHILS % (AUTO) 85.6 % (42-78); TOTAL CELLS COUNTED % (AUTO) 100 %; WHITE BLOOD COUNT 16.8 10^3/uL (4.0-10.5)
[2020-04-14 11:06] LABS: POLYCHROMASIA SLIGHT
[2020-04-14 11:07] LABS: ANION GAP 11 (5-19); ANISOCYTOSIS 2+; BLOOD UREA NITROGEN 17 mg/dL (7-20); CALCIUM 8.9 mg/dL (8.4-10.2); CARBON DIOXIDE 24 mmol/L (22-30); CHLORIDE 104 mmol/L (98-107); GLUCOSE 139 mg/dL (75-110); OVALOCYTES SLIGHT; PLATELET COMMENT ADEQUATE; POIKILOCYTOSIS SLIGHT; POTASSIUM 3.5 mmol/L (3.6-5.0)
[2020-04-14] MEDS: HYDRALAZINE HCL INJ/PF 20 MG/1 ML SDV IV PRN (18:08)
--- NOTE | 2020-04-14 23:33 | NEURO WORKBENCH EEG REPORT ---
EEG Report Patient: Barbara Rucker ID: [id number] Referring Doctor: Carlitos Driver DOS: 04/14/2020 Medications: Lovenox, famotidine, scopolamine History This is a 64 year old female with a history of atrial fibrillation, hypercholesterolemia, hypertension, right TKA, hyperthyroidism who was admitted post-cardiac arrest, intubated, temperature 36.6. This EEG was requested for evaluation post cardiac arrest. EEG Interpretation This EEG was recorded with the patient intubated and recorded at a sensitivity of 3 microvolts. The EEG is characterized by a suppressed background with minimal, very low amplitude background activity in the alpha or beta ranges (mostly in the right temporal region). There was no noted reactivity to passive eye opening/closing. There was intermittent artifact with electrode movement. Photic stimulation resulted in a frontal repetitive EMG artifact but no driving response. There were no epileptiform abnormalities. The EKG showed a regular rhythm. EEG Classification * Suppressed * Minimal background activity EEG Impression This EEG is severely abnormal. It is consistent with severe diffuse cerebral dysfunction. There is suppression but with some minimal background activity noted. INTERPRETING NEUROLOGIST: Libia Kent MD, FRCPC Board Certified in Neurology, with special qualification in Child Neurology, and in Clinical Neurophysiology [facility]
[2020-04-15] MEDS: HYDRALAZINE HCL INJ/PF 20 MG/1 ML SDV IV PRN (02:18)
[2020-04-15 04:27] LABS: ALBUMIN 2.8 g/dL (3.5-5.0); ALKALINE PHOSPHATASE 100 U/L (38-126); ASPARTATE AMINO TRANSFERASE 86 U/L (14-36); BILIRUBIN,DIRECT 0.1 mg/dL (0.0-0.4); BILIRUBIN,TOTAL 0.6 mg/dL (0.2-1.3); BLOOD UREA NITROGEN 20 mg/dL (7-20); CALCIUM 8.5 mg/dL (8.4-10.2); GLUCOSE 133 mg/dL (75-110); POTASSIUM 3.4 mmol/L (3.6-5.0); TOTAL PROTEIN 6.2 g/dL (6.3-8.2)
[2020-04-15 04:31] LABS: ABSOLUTE LYMPHOCYTES (AUTO) 0.9 10^3/uL (0.5-4.7); ABSOLUTE MONOCYTES (AUTO) 0.5 10^3/uL (0.1-1.4); ABSOLUTE NEUT (AUTO) 11.7 10^3/uL (1.7-8.2); BASOPHILS % (AUTO) 0.2 % (0-2); HEMOGLOBIN 10.4 g/dL (12.0-15.5); MEAN CORPUSCULAR HEMOGLOBIN 26.6 pg (27.0-33.4); MEAN CORPUSCULAR HGB CONC 32.5 g/dL (32.0-36.0); MEAN CORPUSCULAR VOLUME 82 fl (80-97); MONOCYTES % (AUTO) 3.5 % (3-13); PLATELET COUNT 177 10^3/uL (150-450); RED BLOOD COUNT 3.91 10^6/uL (3.72-5.28); RED CELL DISTRIBUTION WIDTH 24.6 % (11.5-14.0); SEGMENTED NEUTROPHILS % (AUTO) 89.3 % (42-78); TOTAL CELLS COUNTED % (AUTO) 100 %; WHITE BLOOD COUNT 13.1 10^3/uL (4.0-10.5)
[2020-04-15 04:32] LABS: ANION GAP 7 (5-19); CARBON DIOXIDE 26 mmol/L (22-30); CHLORIDE 107 mmol/L (98-107)
[2020-04-15 04:49] LABS: ANISOCYTOSIS 3+; POIKILOCYTOSIS 3+; SCHISTOCYTES 3+; TEAR DROP CELLS 2+; TOXIC GRANULATION 1+
[2020-04-15 04:50] LABS: ARTERIAL BLOOD BASE EXCESS 1.9 mmol/L; ARTERIAL BLOOD H2CO3 1.16 mmol/L (1.05-1.35); ARTERIAL BLOOD HCO3 25.9 mmol/L (20-24); ARTERIAL BLOOD O2 SATURATION 94.8 % (94-98); ARTERIAL BLOOD PCO2 38.7 mmHg (35-45); ARTERIAL BLOOD PH 7.44 (7.35-7.45); ARTERIAL BLOOD PO2 70.6 mmHg (80-100); ARTERIAL BLOOD TOTAL CO2 27.1 mmol/L (21-25)
[2020-04-15 04:50] LABS: PLATELET COMMENT ADEQUATE
[2020-04-15 04:55] LABS: ARTERIAL BLOOD FIO2 21%
[2020-04-15] MEDS: ENOXAPARIN SODIUM INJ 40 MG/0.4 ML DISP.SYRIN SUBCUT SCH (09:22)
[2020-04-15] MEDS: FAMOTIDINE INJ/PF 20 MG/2 ML SDV IV SCH ×2 (09:22→21:54)
[2020-04-15] MEDS ORDERED: NOREPINEPHRINE BITARTRATE INJ/PF 4 MG/4 ML SDV IV ONE (11:22)
[2020-04-15] MEDS ORDERED: NORMAL SALINE 1000 ML 1,000 ML IV PRN (11:25)
[2020-04-15] MEDS ORDERED: POTASSIUM CHLORIDE 10 MEQ TABLET.ER PO ONE (11:30)
[2020-04-15] MEDS: RINGERS SOLUTION,LACTATED 1,000 ML IV PRN ×2 (12:00→17:20)
[2020-04-15] MEDS: DEXTROSE 5%-WATER 250 ML with NOREPINEPHRINE BITARTRATE 4 MG IV PRN ×2 (12:00)
--- NOTE | 2020-04-15 12:12 | PDOC CRITICAL CARE PROG REPORT ---
General Date:: 04/15/20 ICU Day:: 4 Ventilator Day:: 4 Resuscitation Status: Do Not Resuscitate Events in the past 12 to 24 Hours:: 04/12 The patient was admitted yesterday after sustaining a cardiac arrest at home. She was in V fib at the time. the patient has no known previosu history of cardiac disease. Her down time was estimated at least 20 minutes before ROSC. Since admission she has been cooled on the ventilator for neuroprotection. She did develop recurrent V tach and needed defibrillation overnight. The patient remains comatose at this time. Her initial ECG did not suggest an acute MS. Her second ECG showed ST depression in the precordial leads and a prolonged QT interval. Her toxicology screen was negative on admission. I asked cardiology to see the patient but we must see what her neuro status is before considering invasive cardiac evaluation. 04/13 The patient had a couple of episoides of V tach . Had one episode two nights agoa and one sustained yesterday. the poatient is on Amidarone 1mg/min after bolus of 150mg anf on Lidocaine 2mg/min after a 75 mg bolus. Has not had any serious arrhythmia for at least 16 hours now. Will start tapering the amiod drip[. The patient shows no sign of waking up presently. lies in bed with closed eyes and no movement. Pupils are about 2mm , midline and don't appear reactive.. 04/14. Off lidocaine. No purposeful movements neurologically. 04/15 EEG shows slow waves, no seizures, very abnormal. Now DNR daughter coming in september withdraw. Review of systems relevant to events:: Neurological, CV Reason for ICU Addmission:: S/P cardiac Arrest. VF, intubated. - Medications: Medications reviewed and adjusted accordingly: Yes Vasopressors:: Levophed. Sedation:: None Physical Exam Vital Signs: Temp Pulse Resp BP Pulse Ox 97.7 F 69 16 61/38 L 99 04/15/20 10:00 04/15/20 06:00 04/15/20 10:38 04/15/20 10:38 04/15/20 11:19 Intake & Output 04/14/20 04/15/20 04/16/20 06:59 06:59 06:59 Intake Total 1956 1390 Output Total 390 1370 80 Balance 1566 20 -80 Weight 107.3 kg 105 kg Weight/Height Weight 105 kg Height 5 ft 8 in Head exam: PRESENT: atraumatic, normocephalic Eye exam: PRESENT: conjunctiva pink, EOMI, PERRLA. ABSENT: scleral icterus Ear exam: PRESENT: normal external ear exam Mouth exam: PRESENT: moist, tongue midline Respiratory exam: PRESENT: clear to auscultation sayda. ABSENT: rales, rhonchi, wheezes Cardiovascular exam: PRESENT: RRR. ABSENT: diastolic murmur, rubs, systolic murmur GI/Abdominal exam: PRESENT: normal bowel sounds, soft. ABSENT: distended, guarding, mass, organolmegaly, rebound, tenderness Rectal exam: PRESENT: deferred Gentrourinary exam: PRESENT: indwelling catheter Extremities exam: PRESENT: full ROM. ABSENT: calf tenderness, clubbing, pedal edema Musculoskeletal exam: PRESENT: normal inspection Neurological exam: PRESENT: other - No cough, gag, doll's eyes, posturing or response to voice or pain. Skin exam: PRESENT: dry, intact, warm. ABSENT: cyanosis, rash Tubes/Lines: PRESENT: Endotracheal Tube, Nasogastic Tube Laboratory/Radiographs Laboratory Results: 04/15/20 04:05 04/15/20 04:05 04/15/20 04/15/20 04/15/20 04:05 04:05 04:27 WBC 13.1 H RBC 3.91 Hgb 10.4 L Hct 32.0 L MCV 82 MCH 26.6 L MCHC 32.5 RDW 24.6 H Plt Count 177 Seg Neutrophils % 89.3 H Carbonic Acid 1.16 HCO3/H2CO3 Ratio 22:1 ABG pH 7.44 ABG pCO2 38.7 ABG pO2 70.6 L ABG HCO3 25.9 H ABG O2 Saturation 94.8 ABG Base Excess 1.9 FiO2 21% Sodium 140.1 Potassium 3.4 L Chloride 107 Carbon Dioxide 26 Anion Gap 7 BUN 20 Creatinine 1.32 H Est GFR ( Amer) 49 L Glucose 133 H Calcium 8.5 Total Bilirubin 0.6 AST 86 H Alkaline Phosphatase 100 Total Protein 6.2 L Albumin 2.8 L 04/11/20 04/11/20 04/11/20 10:05 10:05 13:26 Creatine Kinase 108 CK-MB (CK-2) 2.25 Troponin I 0.114 Cancelled NT-Pro-B Natriuret Pep Cancelled 04/11/20 04/11/20 04/11/20 14:47 15:48 20:29 Creatine Kinase CK-MB (CK-2) Troponin I 0.979 1.130 1.090 NT-Pro-B Natriuret Pep Impressions: Head CT 04/11/20 10:15 IMPRESSION: NORMAL BRAIN CT WITHOUT CONTRAST. EVIDENCE OF ACUTE STROKE: NO. Chest X-Ray 04/14/20 06:00 IMPRESSION: STABLE APPEARANCE OF THE CHEST. SUPPORT DEVICES UNCHANGED. All labs, radiographs, diagnostic studies and EKGs were personally reviewed: Yes In addition, reports of radiographic and diagnostic studies were read: Yes Assessment and Plan - Diagnosis (1) Cardiac arrest Is this a current diagnosis for this admission?: Yes Plan: She is not technically brain , but EEG is suggestive of minimal brain activity. She will not have a good functional recovery and daughter has rightfully made her a DNR status. She is coming in to see her and may well withdraw soon. (2) Ventricular tachycardia (paroxysmal) Is this a current diagnosis for this admission?: Yes Plan: No recurrence (3) Atrial fibrillation with rapid ventricular response Is this a current diagnosis for this admission?: No Plan: Not on this admission (4) Hyperthyroidism Is this a current diagnosis for this admission?: Yes Plan: Not active but may have contributed to arrest. (5) Hypokalemia Is this a current diagnosis for this admission?: Yes Plan: Level 3.4 being replaced BID for the next day. Magnesium pending. Plan Summary: Now DNR, wont survive long, now on levophed. Daughter may withdraw. Critical Time Critical Time (minutes): 35 Level of Care: ICU Anticipated discharge: Hospice Anticipated DC Timeframe: within 48 hours -: 1. The care of a critical patient is a dynamic process. This note is a corporate sales representative synopsis but static in nature. The timeframe for treatments given in order is not necessarily the actual time these treatments may have been done. 2. This patient requires critical care secondary to ongoing requirements for therapy not offered or safe outside the critical care environment. Transfer to a lower level of care will result in altered life or limb morbidity and mortality. 3. Multidisciplinary rounds completed. 4. ABCDE bundle addressed.
--- NOTE | 2020-04-15 12:50 | EKG REPORT ---
SEVERITY:- ABNORMAL ECG - ATRIAL FIBRILLATION BORDERLINE LEFT AXIS DEVIATION BORDERLINE T ABNORMALITIES, INFERIOR LEADS PROLONG QT = 586MS. : Confirmed by: Darrius Bennett MD 15-Apr-2020 12:50:22
[2020-04-15] MEDS ORDERED: NORMAL SALINE 1000 ML 1,000 ML IV ONE (14:31)
--- NOTE | 2020-04-15 15:14 | Progress Note ---
Provider Note Provider Note: I've spoken to Divya Chaim, patient's daughter. She is aware her mother is not doing well. She was informed of both EEG findings and unresponsiveness. She is now DNR. We will likely proceed with withdrawal of care after she informs extended family and can contact a uptwister tender to pray.
[2020-04-15] MEDS: POTASSIUM CHLORIDE 10 MEQ TABLET.ER PO SCH (21:53)
[2020-04-16] MEDS: RINGERS SOLUTION,LACTATED 1,000 ML IV PRN ×2 (01:06→09:14)
[2020-04-16] MEDS: DEXTROSE 5%-WATER 250 ML with NOREPINEPHRINE BITARTRATE 4 MG IV PRN ×6 (01:08→16:45)
--- NOTE | 2020-04-16 09:05 | PDOC CRITICAL CARE PROG REPORT ---
General Date:: 04/16/20 ICU Day:: 5 Ventilator Day:: 5 Hospital Day:: 5 Resuscitation Status: Do Not Resuscitate Events in the past 12 to 24 Hours:: 04/12 The patient was admitted yesterday after sustaining a cardiac arrest at home. She was in V fib at the time. the patient has no known previosu history of cardiac disease. Her down time was estimated at least 20 minutes before ROSC. Since admission she has been cooled on the ventilator for neuroprotection. She did develop recurrent V tach and needed defibrillation overnight. The patient remains comatose at this time. Her initial ECG did not suggest an acute MA. Her second ECG showed ST depression in the precordial leads and a prolonged QT interval. Her toxicology screen was negative on admission. I asked cardiology to see the patient but we must see what her neuro status is before considering invasive cardiac evaluation. 04/13 The patient had a couple of episoides of V tach . Had one episode two nights agoa and one sustained yesterday. the poatient is on Amidarone 1mg/min after bolus of 150mg anf on Lidocaine 2mg/min after a 75 mg bolus. Has not had any serious arrhythmia for at least 16 hours now. Will start tapering the amiodarone drip[. The patient shows no sign of waking up presently. lies in bed with closed eyes and no movement. Pupils are about 2mm , midline and don't appear reactive.. 04/14. Off lidocaine. No purposeful movements neurologically. 04/15 EEG shows slow waves, no seizures, very abnormal. Now DNR daughter coming in september withdraw. 04/16 BP getting more labile. No change in neuro exam. Review of systems relevant to events:: Neurological, CV. Reason for ICU Addmission:: S/P cardiac Arrest. VF, intubated. - Medications: Medications reviewed and adjusted accordingly: Yes Vasopressors:: Levophed Sedation:: None Physical Exam Vital Signs: Temp Pulse Resp BP Pulse Ox 98.6 F 41 L 13 103/51 L 98 04/16/20 05:32 04/15/20 19:31 04/16/20 06:14 04/16/20 06:14 04/16/20 06:14 Intake & Output 04/15/20 04/16/20 04/17/20 06:59 06:59 06:59 Intake Total 2390 2220 Output Total 1370 595 Balance 1020 1625 Weight 105 kg 112.2 kg Weight/Height Weight 112.2 kg Height 5 ft 8 in General appearance: PRESENT: no acute distress Head exam: PRESENT: atraumatic, normocephalic Eye exam: PRESENT: conjunctiva pink. ABSENT: scleral icterus Ear exam: PRESENT: normal external ear exam Mouth exam: PRESENT: moist, tongue midline Respiratory exam: PRESENT: clear to auscultation sayda. ABSENT: rales, rhonchi, wheezes Cardiovascular exam: PRESENT: bradycardia, RRR. ABSENT: diastolic murmur, rubs, systolic murmur GI/Abdominal exam: PRESENT: normal bowel sounds, soft. ABSENT: distended, guarding, mass, organolmegaly, rebound, tenderness Rectal exam: PRESENT: deferred Gentrourinary exam: PRESENT: indwelling catheter Extremities exam: PRESENT: full ROM. ABSENT: calf tenderness, clubbing, pedal edema Musculoskeletal exam: PRESENT: normal inspection Neurological exam: PRESENT: other - No neurologic function today. Skin exam: PRESENT: dry, intact, warm. ABSENT: cyanosis, rash Tubes/Lines: PRESENT: Endotracheal Tube, Nasogastic Tube Laboratory/Radiographs Laboratory Results: 04/15/20 04:05 04/15/20 04:05 04/15/20 04:05 Magnesium 2.0 04/11/20 04/11/20 04/11/20 10:05 10:05 13:26 Creatine Kinase 108 CK-MB (CK-2) 2.25 Troponin I 0.114 Cancelled NT-Pro-B Natriuret Pep Cancelled 04/11/20 04/11/20 04/11/20 14:47 15:48 20:29 Creatine Kinase CK-MB (CK-2) Troponin I 0.979 1.130 1.090 NT-Pro-B Natriuret Pep Impressions: Head CT 04/11/20 10:15 IMPRESSION: NORMAL BRAIN CT WITHOUT CONTRAST. EVIDENCE OF ACUTE STROKE: NO. Chest X-Ray 04/14/20 06:00 IMPRESSION: STABLE APPEARANCE OF THE CHEST. SUPPORT DEVICES UNCHANGED. EKG: Atrial fibrillation, L axis. Prolonged QT. All labs, radiographs, diagnostic studies and EKGs were personally reviewed: Yes In addition, reports of radiographic and diagnostic studies were read: Yes Assessment and Plan - Diagnosis (1) Cardiac arrest Is this a current diagnosis for this admission?: Yes Plan: There has been no recurrence, off amiodarone. BP is becoming labile. She is DNR and daughter will likely withdraw soon. (2) Ventricular tachycardia (paroxysmal) Is this a current diagnosis for this admission?: Yes Plan: No recurrence. Electrolytes normalized. (3) Atrial fibrillation with rapid ventricular response Is this a current diagnosis for this admission?: No Plan: Not active. No incidents since admission. (4) Hyperthyroidism Is this a current diagnosis for this admission?: Yes (5) Hypokalemia Is this a current diagnosis for this admission?: Yes Plan: Resolved Plan Summary: Will withdraw when family is ready and pc installation engineer can see her. Critical Time Critical Time (minutes): 35 Level of Care: ICU Anticipated discharge: Hospice Anticipated DC Timeframe: Other -: 1. The care of a critical patient is a dynamic process. This note is a medical claims representative synopsis but static in nature. The timeframe for treatments given in order is not necessarily the actual time these treatments may have been done. 2. This patient requires critical care secondary to ongoing requirements for therapy not offered or safe outside the critical care environment. Transfer to a lower level of care will result in altered life or limb morbidity and mortality. 3. Multidisciplinary rounds completed. 4. ABCDE bundle addressed.
[2020-04-16 09:48] LABS: ANION GAP 8 (5-19); BLOOD UREA NITROGEN 29 mg/dL (7-20); CALCIUM 8.3 mg/dL (8.4-10.2); CARBON DIOXIDE 23 mmol/L (22-30); CHLORIDE 108 mmol/L (98-107); GLUCOSE 121 mg/dL (75-110); POTASSIUM 3.8 mmol/L (3.6-5.0)
[2020-04-16] MEDS: FAMOTIDINE INJ/PF 20 MG/2 ML SDV IV SCH (10:38)
[2020-04-16] MEDS: ENOXAPARIN SODIUM INJ 40 MG/0.4 ML DISP.SYRIN SUBCUT SCH (10:41)
[2020-04-16] MEDS: POTASSIUM CHLORIDE 10 MEQ TABLET.ER PO SCH (10:43)
[2020-04-16] MEDS: SCOPOLAMINE HYDROBROMIDE 1.5 MG PATCH.TD72 TD SCH (10:44)
--- NOTE | 2020-04-16 15:51 | Progress Note ---
Provider Note Provider Note: Patient breathing on her own. Brain criteria does not apply.
[2020-04-16 19:05] VITALS: BP 74/43
[2020-04-16] MEDS ORDERED: MORPHINE SULFATE 10 MG/ML INJ IV PRN (19:28)
--- NOTE | 2020-04-17 04:59 | Death Summary ---
Summary Date : 04/16/20 Time of :: 21:04 Autopsy: No Resuscitation Status: Comfort Measures Only - Final Diagnosis (1) Cardiac arrest Is this a current diagnosis for this admission?: Yes Hospital Course:: 04/12 The patient was admitted yesterday after sustaining a cardiac arrest at home. She was in V fib at the time. the patient has no known previosu history of cardiac disease. Her down time was estimated at least 20 minutes before ROSC. Since admission she has been cooled on the ventilator for neuroprotection. She did develop recurrent V tach and needed defibrillation overnight. The patient remains comatose at this time. Her initial ECG did not suggest an acute MN. Her second ECG showed ST depression in the precordial leads and a prolonged QT interval. Her toxicology screen was negative on admission. I asked cardiology to see the patient but we must see what her neuro status is before considering invasive cardiac evaluation. 04/13 The patient had a couple of episoides of V tach . Had one episode two nights agoa and one sustained yesterday. the poatient is on Amidarone 1mg/min after bolus of 150mg anf on Lidocaine 2mg/min after a 75 mg bolus. Has not had any serious arrhythmia for at least 16 hours now. Will start tapering the amiodarone drip[. The patient shows no sign of waking up presently. lies in bed with closed eyes and no movement. Pupils are about 2mm , midline and don't appear reactive.. 04/14. Off lidocaine. No purposeful movements neurologically. 04/15 EEG shows slow waves, no seizures, very abnormal. Now DNR daughter coming in september withdraw. 04/16 BP getting more labile. No change in neuro exam. Today daughter decided to make patient comfort measures only. Levophed turned off and patient extubated at 2099. Patient at 2103.
== END 2020-04-16 21:04 | DRG 296 ==
LOC: ER 10:00 → EH 11:19 → ICU 13:58
PROVIDERS: ADMIT Internal Medicine; ATTEND Internal Medicine
PROC: 5A1955Z Respiratory Ventilation, Greater than 96 Consecutive Hours (ICD-10-PCS; principal; 2020-04-11)
PROC: 0BH17EZ Insertion of Endotracheal Airway into Trachea, Via Natural or Artificial Opening (ICD-10-PCS; 2020-04-11)
PROC: B24BZZ4 Ultrasonography of Heart with Aorta, Transesophageal (ICD-10-PCS; 2020-04-11)
DX: I46.9 Cardiac arrest, cause unspecified (principal); J96.01 Acute respiratory failure with hypoxia; I49.01 Ventricular fibrillation; I47.2 Ventricular tachycardia; I48.0 Paroxysmal atrial fibrillation; Z20.828 Contact with and (suspected) exposure to other viral communicable diseases; I45.81 Long QT syndrome; I10 Essential (primary) hypertension; E11.9 Type 2 diabetes mellitus without complications; E78.5 Hyperlipidemia, unspecified; F17.210 Nicotine dependence, cigarettes, uncomplicated; Z96.651 Presence of right artificial knee joint; E66.01 Morbid (severe) obesity due to excess calories; E05.90 Thyrotoxicosis, unspecified without thyrotoxic crisis or storm; E87.6 Hypokalemia; Z66 Do not resuscitate; Z82.49 Family history of ischemic heart disease and other diseases of the circulatory system; Z79.899 Other long term (current) drug therapy; Z79.01 Long term (current) use of anticoagulants
CPT/HCPCS: 36415; 36600; 70450; 71045; 80048; 80053; 80061; 80307; 81001; 82550; 82553; 82803; 82962; 83605; 83735; 84439; 84443; 84484; 85025; 87070; 92950; 93005; 93010; 93306; 94002; 94003; 95819; 96374; 99285; 99291; 0241U; C9803; J0282; J0360; J1650; J2001; J2270; J3475; J3480; J3490; J7030; J7060; J7120; S0028